=== PATIENT | female | born 1965 | race Caucasian/White ===

== ENCOUNTER → 2017-11-06 10:44 | Outpatient (CLI) | payer OTHER, SELFPAY ==
--- NOTE | 2017-11-06 | DI.MG.S_ITS ---
UNILATERAL LEFT DIGITAL SCREENING MAMMOGRAM 3D/2D WITH CAD POST MASTECTOMY: 11/06/2017 CLINICAL: Routine screening. Personal history of right breast cancer. Post right mastectomy. Comparison is made to exams dated: 11/05/2016 mammogram, 10/25/2015 mammogram - [facility], and 10/21/2014 mammogram - [facility]. The tissue of the left breast is extremely dense, which lowers the sensitivity of mammography. Current study was also evaluated with a Computer Aided Detection (CAD) system. There are biopsy clips in the left breast. No significant masses, calcifications, or other findings are seen in the breast. There has been no significant interval change. IMPRESSION: NEGATIVE There is no mammographic evidence of malignancy. A 1 year screening mammogram is recommended. This exam was interpreted at Station ID: [id number]. NOTE: For mammograms, a report in lay terms will be sent to the patient. Approximately 15% of breast malignancies will not be visualized mammographically. In the management of a palpable breast mass, a negative mammogram must not discourage biopsy of a clinically suspicious lesion. Electronically Signed By: Damaso ulloa/sonia:11/06/2017 16:08:39 letter sent: Normal Exam ACR BI-RADS Category 1: Negative 3341F
== END ==
PROVIDERS: Family Provider Family Medicine; PCP Family Medicine; Visit Provider Family Medicine
DX: Z12.31 Encounter for screening mammogram for malignant neoplasm of breast (principal); Z85.3 Personal history of malignant neoplasm of breast
CPT/HCPCS: 77063; 77065

== ENCOUNTER → 2017-12-31 15:32 | Outpatient (CLI) | payer OTHER, MEDICAID, SELFPAY ==
[2018-01-01 15:16] LABS: Add Manual Diff / Slide Review NO; Basophils Percent Auto 0.6 % (0-2); Eosinophils Percent Auto 0.7 % (2-4); Hematocrit 36.8 % (36-46); Hemoglobin 12.7 g/dL (12.0-16.0); Mean Corpuscular HGB Conc 34.4 % (30-36); Mean Corpuscular Hemoglobin 30.2 PG (26-34); Mean Corpuscular Volume 87.7 fL (80-100); Monocytes Percent Auto 6.4 % (3-14); Neutrophils Absolute Auto 3300 /uL (3000-5900); Neutrophils Percent Auto 60.3 % (50-75); Platelet Count 260 X10^3/uL (150-400); Red Cell Distribution Width 12.7 % (11.6-14.8); White Blood Cell Count 5.5 X10^3/uL (4.5-11.0)
[2018-01-01 15:31] LABS: Alanine Aminotransferase 21 IU/L (9-52); Albumin 4.5 g/dL (3.5-5.0); Albumin Globulin Ratio 1.6 (1.0-2.8); Alkaline Phosphatase 57 U/L (38-126); Aspartate Aminotransferase 25 IU/L (14-36); BUN Creatinine Ratio 17.5 (6-22); Bilirubin Total 0.3 mg/dL (0.2-1.3); Blood Urea Nitrogen 14 mg/dL (7-17); Calcium 9.4 mg/dL (8.4-10.2); Carbon Dioxide 30 mmol/L (22-32); Chloride 102 mmol/L (98-107); Estimated Glomerular Filt Rate > 60.0 mL/min (>60); Globulin 2.8 g/dL (1.7-4.1); Glucose 102 mg/dL (70-100); HEMOLYSIS < 15 (0-50); Potassium 4.2 mmol/L (3.4-5.1); Sodium 141 mmol/L (137-145); Total Protein 7.3 g/dL (6.3-8.2)
[2018-01-03 15:39] LABS: Cancer Antigen 27.29 23 U/mL (< 38)
== END ==
PROVIDERS: Family Provider Family Medicine; PCP Family Medicine; Visit Provider Nurse Practitioner Gerontology
DX: C50.911 Malignant neoplasm of unspecified site of right female breast (principal)
CPT/HCPCS: 36415; 80053; 85025; 86300

== ENCOUNTER → 2018-12-31 10:59 | Outpatient (CLI) | payer OTHER, MEDICAID, SELFPAY ==
--- NOTE | 2018-12-31 | DI.MG.S_ITS ---
UNILATERAL LEFT DIGITAL SCREENING MAMMOGRAM 3D/2D WITH CAD POST MASTECTOMY WITH RECONSTRUCTION: 12/31/2018 CLINICAL: Routine screening. Personal history of right breast cancer. Post right mastectomy. Family history of breast cancer. Comparison is made to exams dated: 11/06/2017 mammogram, 11/05/2016 mammogram, and 10/25/2015 mammogram - [facility]. The tissue of left breast is heterogeneously dense. This may lower the sensitivity of mammography. Current study was also evaluated with a Computer Aided Detection (CAD) system. There are benign biopsy clips in the left breast. No significant masses, calcifications, or other findings are seen in the breast. There has been no significant interval change. IMPRESSION: NEGATIVE There is no mammographic evidence of malignancy. A 1 year screening mammogram is recommended. This exam was interpreted at Station ID: [id number]. NOTE: For mammograms, a report in lay terms will be sent to the patient. Approximately 15% of breast malignancies will not be visualized mammographically. In the management of a palpable breast mass, a negative mammogram must not discourage biopsy of a clinically suspicious lesion. Electronically Signed By: Lidya anderson/sonia:12/31/2018 13:06:00 letter sent: Normal Exam ACR BI-RADS Category 1: Negative 3341F
== END ==
PROVIDERS: Family Provider Family Medicine; PCP Family Medicine; Visit Provider Family Medicine
DX: Z12.31 Encounter for screening mammogram for malignant neoplasm of breast (principal); Z85.3 Personal history of malignant neoplasm of breast; Z80.3 Family history of malignant neoplasm of breast; Z90.11 Acquired absence of right breast and nipple
CPT/HCPCS: 77063; 77067

== ENCOUNTER → 2019-02-20 12:34 | Outpatient (CLI) | payer OTHER, MEDICAID, SELFPAY | PROVIDERS: Family Provider Family Medicine; PCP Family Medicine; Visit Provider Internal Medicine Hematology & Oncology | DX: C50.911 Malignant neoplasm of unspecified site of right female breast (principal); Z85.3 Personal history of malignant neoplasm of breast ==

== ENCOUNTER → 2019-02-24 13:38 | Outpatient (CLI) | payer OTHER, MEDICAID, SELFPAY | PROVIDERS: Family Provider Family Medicine; PCP Family Medicine; Visit Provider Internal Medicine Hematology & Oncology | DX: M85.832 Other specified disorders of bone density and structure, left forearm (principal); M85.831 Other specified disorders of bone density and structure, right forearm; Z78.0 Asymptomatic menopausal state; Z85.3 Personal history of malignant neoplasm of breast; Z90.722 Acquired absence of ovaries, bilateral; Z82.62 Family history of osteoporosis | CPT/HCPCS: 77080; 77081 ==

== ENCOUNTER → 2020-02-04 14:28 | Outpatient (CLI) | payer OTHER, MEDICAID, SELFPAY ==
--- NOTE | 2020-02-04 14:34 | DI.MG.S_ITS ---
UNILATERAL LEFT DIGITAL SCREENING MAMMOGRAM 3D/2D WITH CAD POST MASTECTOMY: 02/04/2020 CLINICAL: Routine screening. Personal history of right breast cancer. Comparison is made to exams dated: 12/31/2018 mammogram, 11/06/2017 mammogram, 11/05/2016 mammogram, 10/25/2015 mammogram - [facility], and 10/21/2014 mammogram - [facility]. The tissue of left breast is heterogeneously dense. This may lower the sensitivity of mammography. Current study was also evaluated with a Computer Aided Detection (CAD) system. There are benign masses in the left breast. There also are biopsy clips in the left breast. No significant masses, calcifications, or other findings are seen in the breast. There has been no significant interval change. IMPRESSION: BENIGN There is no mammographic evidence of malignancy. A 1 year screening mammogram is recommended. This exam was interpreted at Station ID: [id number]. NOTE: For mammograms, a report in lay terms will be sent to the patient. Approximately 15% of breast malignancies will not be visualized mammographically. In the management of a palpable breast mass, a negative mammogram must not discourage biopsy of a clinically suspicious lesion. Electronically Signed By: Jossue coyle/sonia:02/04/2020 17:24:00 letter sent: Normal Exam ACR BI-RADS Category 2: Benign Finding(s) 3342F
== END ==
PROVIDERS: Family Provider Family Medicine; PCP Family Medicine; Referring Provider Family Medicine; Visit Provider Family Medicine
DX: Z12.31 Encounter for screening mammogram for malignant neoplasm of breast (principal); Z85.3 Personal history of malignant neoplasm of breast
CPT/HCPCS: 77063; 77067

== ENCOUNTER → 2020-02-12 14:03 | Outpatient (CLI) | payer OTHER, MEDICAID, SELFPAY ==
--- NOTE | 2020-02-12 14:04 | DI.US.S_ITS ---
LIMITED ULTRASOUND OF RIGHT BREAST: 02/12/2020 CLINICAL: Right breast pain and palpable lump. Comparison is made to exams dated: 10/21/2014 mammogram, 04/29/2014 ultrasound biopsy, 10/21/2014 ultrasound, and 04/28/2014 ultrasound - [facility]. Real-time ultrasound of the right breast 3-10 o'clock region was performed. Peterson scale images of the real-time examination were reviewed. Right breast implant has muiltiple lobulations and a smooth contour. No finding to correspond to the patient's 4:00 palpable abnormality. IMPRESSION: BENIGN There is no sonographic evidence of malignancy. There is no abnormality seen in the right breast to correspond with the pain. There is no abnormality seen in the right breast to correspond with the palpable abnormality at 4 o'clock. Return to annual mammogram screening schedule is recommended. Future imaging is recommended as follows: 02/04/2021 screening mammogram. Findings and recommendations were conveyed to the patient at time of exam. This exam was interpreted at Station ID: [id number]. Electronically Signed By: Alejandra garcia/:02/12/2020 15:02:35 letter sent: Normal Exam Ultrasound BI-RADS: 2 Benign
== END ==
PROVIDERS: Family Provider Family Medicine; Referring Provider Internal Medicine Hematology & Oncology; Visit Provider Internal Medicine Hematology & Oncology
DX: N63.14 Unspecified lump in the right breast, lower inner quadrant (principal); N64.4 Mastodynia; Z85.3 Personal history of malignant neoplasm of breast; Z98.82 Breast implant status
CPT/HCPCS: 76642

== ENCOUNTER → 2020-03-20 08:42 | Outpatient (CLI) | payer OTHER, MEDICAID, SELFPAY ==
[2020-03-21 09:45] LABS: COVID19 Sendout Not Detected (Not Detect)
== END ==
PROVIDERS: Family Provider Family Medicine; Visit Provider Nurse Practitioner
DX: Z11.59 Encounter for screening for other viral diseases (principal)
CPT/HCPCS: 87635

== ENCOUNTER → 2020-09-21 13:49 | Outpatient (CLI) | payer OTHER, MEDICAID, SELFPAY ==
[2020-09-21] MEDS: COVID-19 VACC #1, MRNA(MOD) 100 MCG/0.5 ML VIAL IM (13:55)
== END ==
PROVIDERS: Family Provider Family Medicine; Visit Provider Internal Medicine
DX: Z23 Encounter for immunization (principal)
CPT/HCPCS: 0011A; 91301

== ENCOUNTER → 2020-10-19 14:52 | Outpatient (CLI) | payer OTHER, MEDICAID, SELFPAY ==
[2020-10-19] MEDS: COVID-19 VACC #2, MRNA(MOD) 100 MCG/0.5 ML VIAL IM (15:00)
== END ==
PROVIDERS: Family Provider Family Medicine; Visit Provider Internal Medicine
DX: Z23 Encounter for immunization (principal)
CPT/HCPCS: 0012A; 91301

== ENCOUNTER → 2021-03-22 10:06 | Outpatient (CLI) | payer OTHER, MEDICAID, SELFPAY ==
--- NOTE | 2021-03-22 | DI.MG.S_ITS ---
UNILATERAL LEFT DIGITAL SCREENING MAMMOGRAM 3D/2D WITH CAD POST MASTECTOMY: 03/22/2021 CLINICAL: ROUTINE. BREAST CANCER. FAMILY HISTORY BREAST CANCER. Comparison is made to exams dated: 02/04/2020 mammogram, 12/31/2018 mammogram, and 11/06/2017 mammogram - [facility]. The tissue of left breast is heterogeneously dense. This may lower the sensitivity of mammography. Current study was also evaluated with a Computer Aided Detection (CAD) system. There are stable benign masses in the left breast. There also are biopsy clips in the left breast. No significant masses, calcifications, or other findings are seen in the breast. There has been no significant interval change. IMPRESSION: BENIGN There is no mammographic evidence of malignancy. A 1 year screening mammogram is recommended. This exam was interpreted at Station ID: [id number]. NOTE: For mammograms, a report in lay terms will be sent to the patient. Approximately 15% of breast malignancies will not be visualized mammographically. In the management of a palpable breast mass, a negative mammogram must not discourage biopsy of a clinically suspicious lesion. Electronically Signed By: Rigoberto Hdz acr/penrad:03/22/2021 12:17:27 letter sent: Normal Exam ACR BI-RADS Category 2: Benign Finding(s) 3342F
== END ==
PROVIDERS: Family Provider Family Medicine; Referring Provider Internal Medicine Hematology & Oncology; Visit Provider Internal Medicine Hematology & Oncology
DX: Z12.31 Encounter for screening mammogram for malignant neoplasm of breast (principal); Z85.3 Personal history of malignant neoplasm of breast; Z80.3 Family history of malignant neoplasm of breast
CPT/HCPCS: 77063; 77067

== ENCOUNTER → 2022-07-06 14:16 | Outpatient (CLI) | payer OTHER, MEDICAID, SELFPAY ==
--- NOTE | 2022-07-06 | DI.MG.S_ITS ---
UNILATERAL LEFT DIGITAL SCREENING MAMMOGRAM 3D/2D WITH CAD: 07/06/2022 CLINICAL: Routine screening. Personal history of right breast cancer. Family history of breast cancer. Comparison is made to exams dated: 03/22/2021 mammogram, 02/12/2020 ultrasound, 02/04/2020 mammogram, and 12/31/2018 mammogram - [facility]. The left breast is heterogeneously dense, which may obscure small masses (category c / 51-75% glandular tissue). Current study was also evaluated with a Computer Aided Detection (CAD) system. There are stable benign masses in the left breast. There also are biopsy clips in the left breast. No significant masses, calcifications, or other findings are seen in the breast. There has been no significant interval change. IMPRESSION: BENIGN There is no mammographic evidence of malignancy. A 1 year screening mammogram is recommended. This exam was interpreted at Station ID: [id number]. NOTE: For mammograms, a report in lay terms will be sent to the patient. Approximately 15% of breast malignancies will not be visualized mammographically. In the management of a palpable breast mass, a negative mammogram must not discourage biopsy of a clinically suspicious lesion. Electronically Signed By: Vargas Lincoln M.D., jr/sonia:07/06/2022 14:43:21 letter sent: Normal Exam ACR BI-RADS Category 2: Benign Finding(s) 3342F
== END ==
PROVIDERS: Family Provider Family Medicine; PCP Internal Medicine; Referring Provider Internal Medicine Hematology & Oncology; Visit Provider Internal Medicine Hematology & Oncology
DX: Z12.31 Encounter for screening mammogram for malignant neoplasm of breast (principal); Z80.3 Family history of malignant neoplasm of breast; C50.911 Malignant neoplasm of unspecified site of right female breast; Z13.820 Encounter for screening for osteoporosis; M85.851 Other specified disorders of bone density and structure, right thigh; Z78.0 Asymptomatic menopausal state; Z90.710 Acquired absence of both cervix and uterus
CPT/HCPCS: 77063; 77067; 77080

== ENCOUNTER → 2023-07-08 16:15 | Outpatient (CLI) | payer OTHER, MEDICAID, SELFPAY ==
--- NOTE | 2023-07-08 16:17 | DI.MG.S_ITS ---
UNILATERAL LEFT DIGITAL SCREENING MAMMOGRAM 3D/2D WITH CAD POST MASTECTOMY: 07/08/2023 CLINICAL: Routine screening. Personal history of right breast cancer. Family History of breast cancer. Comparison is made to exams dated: 07/06/2022 mammogram, 03/22/2021 mammogram, and 02/04/2020 mammogram - [facility]. The left breast is heterogeneously dense, which may obscure small masses (category c / 51-75% glandular tissue). Current study was also evaluated with a Computer Aided Detection (CAD) system. There are stable benign masses in the left breast. There also are biopsy clips in the left breast. No significant masses, calcifications, or other findings are seen in the breast. There has been no significant interval change. IMPRESSION: BENIGN There is no mammographic evidence of malignancy. A 1 year screening mammogram is recommended. This exam was interpreted at Station ID: [id number]. NOTE: For mammograms, a report in lay terms will be sent to the patient. Approximately 15% of breast malignancies will not be visualized mammographically. In the management of a palpable breast mass, a negative mammogram must not discourage biopsy of a clinically suspicious lesion. Electronically Signed By: Jossue coyle/sonia:07/09/2023 08:38:12 letter sent: Normal Exam ACR BI-RADS Category 2: Benign Finding(s) 3342F
== END ==
PROVIDERS: Family Provider Family Medicine; PCP Family Medicine; Referring Provider Family Medicine; Visit Provider Family Medicine
DX: Z12.31 Encounter for screening mammogram for malignant neoplasm of breast (principal); C50.911 Malignant neoplasm of unspecified site of right female breast; R92.333 Mammographic heterogeneous density, bilateral breasts; Z80.3 Family history of malignant neoplasm of breast
CPT/HCPCS: 77063; 77067

== ENCOUNTER → 2023-08-05 15:00 | Oncology outpatient (ONC) | payer OTHER, MEDICAID, SELFPAY ==
[2019-02-02 11:36] VITALS: BP 140/88; PULSE 63; RESP 20; TEMP 36.7; O2SAT 98
--- NOTE | 2019-02-02 11:42 | P.PNONC_ITS ---
PN -Subjective Interval history: 53 year old with right breast cancer here for scheduled follow up visit. Oncology History: 1. 10/19/2013: right breast biopsy with 2 samples taken from the right breast, both of which were positive for invasive ductal carcinoma; ER/ME positive at greater than 90%, respectively, with Ki-67 greater than 60%. HER2 was 1+. 2. 10/2013- 12/2013: neoadjuvant Docetaxel and cyclophosphamide times 6 cycles. 3. 04/29/2014: nipple-sparing mastectomy with a complete node dissection, pathology confirming 2 foci of invasive disease. Kelechi histological grade 5 out of 9, mitotic rate of 1. Positive extensive LVI was seen but no DCIS. Nineteen axillary lymph nodes were removed, 4 of which were positive for inv olvement, the largest measuring 2 mm with positive extranodal extension.\ 05/2014: chest wall radiation: . 06/2014: Tamoxifen 20 mg daily. Interim Events: No pain. No fatigue. The only thing is pain of her in-plant, which was hard. She wants to have it removed. She underwent hysterectomy and bilateral ovariectomy 2 years ago (2016), completed by post-op severe infection (MRSA) requiring hosp italization for a week. She is taking probiotics, and trying to maintain good diet. She stopped Tamoxifen. She is also complaining of a skin nodule in the upper abdomen. - Additional ROS All systems PM: reviewed and no additional remarkable complaints except as stated Home Medications and Allergies Home Medications Medication Instructions Recorded Confirmed Type calcium carbonate-vitamin D3 1 tab PO Q DAY #0 06/06/17 02/02/19 History [Oyster Shell Calcium-Vit D3] omega 0-jut-lyt-fish oil [Fish Oil] 1,000 mg PO Q DAY #0 06/06/17 02/02/19 History gabapentin 300 mg capsule 300 mg PO HS #30 tab 11/19/18 02/02/19 Rx anastrozole 1 mg PO DAILY #90 tab 02/02/19 Rx Allergies Allergy/AdvReac Type Severity Reaction Status Date / Time No Known Drug Allergies Allergy Verified 06/25/18 09:53 Exam Vital signs: Vital Signs Temp Pulse Resp BP Pulse Ox 02/02/19 11:36 98.1 F 63 20 140/88 98 Intake and Output 02/01/19 02/02/19 02/02/19 23:59 07:59 15:59 Other: Weight 60.9 kg Patient Weight 02/02/19 23:59 Weight 60.9 kg Narrative: ECOG 1. Gen: WDWN, NAD, pleasant and cooperative. HEENT: NCAT, EOMI, PERRLA, anicteric sclera. Neck: Supple, No palpable thyromegaly or lymphadenopathy. Respiratory: CTAB, no wheezes audible. No JVD Cardiovascular: RRR, S1 and S2 normal, no M/G/R. Abdomen: Soft, NTND, BS normal, no palpable organomegaly. A irregular skin nodule noted below the xyphoid, measuring about 1 cm. Hard on palpation. Extremities: No LE pitting edema. Lymphatic: no palpable lymph nodes in the neck, axillae, or groins. Neurological: AOx3, CN II-XII grossly intact. No focal motor or sensory deficit. Psychiatric: Good judgment and insight; normal affect; normal thought process; cooperative, no depression, no anxiety. Breast exam: Left breast: No nipple retraction, no skin changes, no palpable mass or nodules, no palpable lymph nodes in the left axilla; right breast: No nipple retraction, status post previous mastectomy with implant. No palpable nodules. No palpable lymph nodes in the right axilla. All physical examinations were chaperoned. Results - Labs None for the past one year - Imaging Additional studies: Procedures Excision of Duodenum, Via Natural or Artificial Opening Endoscopic, Diagnostic (01/14/17) Assessment and Plan (1) Breast cancer, right Overview: Right breast IDC, ER pos, ME pos, Her2 negative, node positive diagnosed 10/19/2013. She underwent neoadjuvant Decetaxel and cyclophosphamide x 6 cycles from 10/2013 through 12/2013. She underwent nipple-sparing mastectomy with a complete node dissection on 04/29/2014. Pathology showed 2 foci of invasive disease, positive extensive LVI, and no DCIS. Four of 19 axillary lymph nodes were positive for metastasis, the largest measuring 2 mm with positive extranodal extension. She then completed chest wall radiation in 05/2014, and then 5 years of Tamoxifen 20 mg daily from since Jun 2014. Assessment: I explained to the patient that I would recommend we switch tamoxifen to anastrozole. Patient has a right breast invasive ductal carcinoma with features including positive lymphovascular invasion and positive lymph nodes. I would recommend a 10 year endocrine therapy. Studies have shown that switching tamoxifen to aromatase inhibitor can help reduce the risk of recurrence. I talked with her that aromatase inhibitor is associated with increased risk of osteoporosis in addition to postmenopausal signs and symptoms as well as musculoskeletal discomfort and pain. Will obtain bone mineral density as a baseline. Plan: 1. Stop hernandez 2. Start anastrozole 3, DEXA 4. Calcium/D (2) Skin nodule Upper epigastric skin nodule, hard on palpation I will refer the patient to d ermatologist for consideration of surgical removal.
--- NOTE | 2019-02-02 12:57 | ONC.MSW ---
Description: Grief Support Activity: Pt arrived for her visit today presenting as very sad, tearful. Her [id number] after complications with a recent DVT. ENVIRONMENTAL PROJECT MANAGER offered emotional and coping support, as well as resources for community grief support. No further needs identified at this time.
[2019-03-02 11:59] VITALS: BP 152/89; PULSE 91; RESP 16; TEMP 36; O2SAT 100
--- NOTE | 2019-03-02 12:02 | P.PNONC_ITS ---
PN -Subjective Interval history: 53 year old with right breast cancer here for scheduled follow up visit. Oncology History: 1. 10/19/2013: right breast biopsy with 2 samples taken from the right breast, both of which were positive for invasive ductal carcinoma; ER/PA positive at greater than 90%, respectively, with Ki-67 greater than 60%. HER2 was 1+. 2. 10/2013- 12/2013: neoadjuvant Docetaxel and cyclophosphamide times 6 cycles. 3. 04/29/2014: nipple-sparing mastectomy with a complete node dissection, pathology confirming 2 foci of invasive disease. Kelechi histological grade 5 out of 9, mitotic rate of 1. Positive extensive LVI was seen but no DCIS. Nineteen axillary lymph nodes were removed, 4 of which were positive for inv olvement, the largest measuring 2 mm with positive extranodal extension.\ 05/2014: chest wall radiation: . 06/2014: Tamoxifen 20 mg daily. Interim Events: During her previous visit, we decided to put her back Arimidex inhibitor. However patient has not picked the medication yet. In addition patient was complaining a skin nodule in the left epigastric area measuring about 0.5 x 1 cm. Patient said that for the past several years, it has increased in size. She is very much worried about the nodule. I referred the patient to Dermatology for evaluation but has not set up yet. - Additional ROS All systems PM: reviewed and no additional remarkable complaints except as stated Home Medications and Allergies Home Medications Medication Instructions Recorded Confirmed Type calcium carbonate-vitamin D3 1 tab PO Q DAY #0 06/06/17 03/02/19 History [Oyster Shell Calcium-Vit D3] omega 0-yqq-yyh-fish oil [Fish Oil] 1,000 mg PO Q DAY #0 06/06/17 03/02/19 History gabapentin 300 mg capsule 300 mg PO HS #30 tab 11/19/18 03/02/19 Rx anastrozole 1 mg PO DAILY #90 tab 02/02/19 03/02/19 Rx Allergies Allergy/AdvReac Type Severity Reaction Status Date / Time No Known Drug Allergies Allergy Verified 06/25/18 09:53 Exam Vital signs: Vital Signs Temp Pulse Resp BP Pulse Ox 03/02/19 11:59 96.8 F L 91 H 16 152/89 H 100 Intake and Output 03/01/19 03/02/19 03/02/19 23:59 07:59 15:59 Other: Weight 62.1 kg Patient Weight 03/02/19 23:59 Weight 62.1 kg Narrative: Gen: WDWN, NAD, pleasant and cooperative. ECOG 1 HEENT: NCAT, EOMI, PERRLA, anicteric sclera. Neck: Supple, No palpable thyromegaly or lymphadenopathy. Respiratory: CTAB, no wheezes audible. No JVD Cardiovascular: RRR, S1 and S2 normal, no M/G/R. Abdomen: Soft, NTND, BS normal, no palpable organomegaly. A irregular skin nodule noted below the xyphoid, measuring about 1 cm. Hard on palpation. Extremities: No LE pitting edema. Lymphatic: no palpable lymph nodes in the neck, axillae Neurological: AOx3, CN II-XII grossly intact. No focal motor or sensory deficit. Psychiatric: Good judgment and insight; normal affect; normal thought process; cooperative, no depression, no anxiety. Breast exam: deferred. All physical examinations were chaperoned. Results - Imaging Additional studies: Procedures Excision of Duodenum, Via Natural or Artificial Opening Endoscopic, Diagnostic (01/14/17) Assessment and Plan (1) Breast cancer, right Overview: Right breast IDC, ER pos, PA pos, Her2 negative, node positive diagnosed 10/19/2013. She underwent neoadjuvant Decetaxel and cyclophosphamide x 6 cycles from 10/2013 through 12/2013. She underwent nipple-sparing mastectomy with a complete node dissection on 04/29/2014. Pathology showed 2 foci of invasive disease, positive extensive LVI, and no DCIS. Four of 19 axillary lymph nodes were positive for metastasis, the largest measuring 2 mm with positive extranodal extension. She then completed chest wall radiation in 05/2014, and then 5 years of Tamoxifen 20 mg daily from since Jun 2014. Assessment: I today explained to the patient gain that I would recommend switch tamoxifen to anastrozole. Her right breast invasive ductal carcinoma has features suggestive of high risk, including positive lymphovascular invasion and positive lymph nodes. I would recommend a 10 year endocrine therapy. I talked with her that aromatase inhibitor is associated with increased risk of osteoporosis in addition to postmenopausal signs and symptoms as well as musculoskeletal discomfort and pain. Plan: 1. Instructed her to start anastrozole 1 mg daily 2. RTC in one months, CBC, CMP to evaluate if she tolerates anastrozole. (2) Skin nodule Upper epigastric skin nodule, hard on palpation I will refer the patient to lina arriaza for evaluation of resection. (3) Osteopenia I also reviewed the DEXA scan results with the patient. Patient has osteopenia but not osteoporosis. I encouraged the patient taking calcium and vitamin-D. Plan: Calcium 1200 mg daily Vitamin D 2000 units daily
--- NOTE | 2019-03-03 13:39 | PC.NURSE ---
RX: Patient had requested per telephone to know which RX to tow picker at [facility] [email or web address] as she understood at appt with Dr. Keller yesterday that there would be something to tow picker. Notes reveal Anastrozole [facility] has still 4 refills. This communicated to patient per telephone answering machine as well as the fact that he had recommended Calcium and Vit D. supplements.
[2019-03-30 10:00] LABS: Add Manual Diff / Slide Review NO; Basophils Absolute Auto 0 /uL (0-100); Basophils Percent Auto 0.7 % (0-2); Eosinophils Absolute Auto 100 /uL (0-450); Eosinophils Percent Auto 1.9 % (2-4); Hematocrit 38.1 % (36-46); Hemoglobin 13.1 g/dL (12.0-16.0); Lymphocytes Absolute Auto 1500 /uL (1100-4500); Lymphocytes Percent Auto 28.5 % (25-40); Mean Corpuscular HGB Conc 34.5 % (30-36); Mean Corpuscular Hemoglobin 30.4 PG (26-34); Mean Corpuscular Volume 88.1 fL (80-100); Monocytes Absolute Auto 400 /uL (0-900); Monocytes Percent Auto 7.7 % (3-14); Neutrophils Absolute Auto 3200 /uL (1500-7000); Neutrophils Percent Auto 61.2 % (50-75); Platelet Count 286 X10^3/uL (150-400); Red Blood Cell Count 4.32 X10^6/uL (4.0-5.2); White Blood Cell Count 5.2 X10^3/uL (4.5-11.0)
[2019-03-30 10:20] LABS: Alanine Aminotransferase 24 IU/L (9-52); Albumin 4.6 g/dL (3.5-5.0); Albumin Globulin Ratio 1.7 (1.0-2.8); Alkaline Phosphatase 69 U/L (38-126); Aspartate Aminotransferase 25 IU/L (14-36); BUN Creatinine Ratio 18.6 (6-22); Bilirubin Total 0.4 mg/dL (0.2-1.3); Blood Urea Nitrogen 13 mg/dL (7-17); Calcium 9.9 mg/dL (8.4-10.2); Carbon Dioxide 28 mmol/L (22-32); Chloride 102 mmol/L (98-107); Estimated Glomerular Filt Rate > 60.0 mL/min (>60); Globulin 2.7 g/dL (1.7-4.1); Glucose 76 mg/dL (70-100); HEMOLYSIS < 15 (0-50); Potassium 4.2 mmol/L (3.4-5.1); Sodium 140 mmol/L (137-145); Total Protein 7.3 g/dL (6.3-8.2)
[2019-04-01 17:04] LABS: Cancer Antigen 27.29 28 U/mL (< 38)
--- NOTE | 2019-04-02 10:49 | P.PNONC_ITS ---
PN -Subjective Interval history: 53 year old with right breast cancer here for scheduled follow up visit. Oncology History: 1. 10/19/2013: right breast biopsy with 2 samples taken from the right breast, both of which were positive for invasive ductal carcinoma; ER/AL positive at greater than 90%, respectively, with Ki-67 greater than 60%. HER2 was 1+. 2. 10/2013- 12/2013: neoadjuvant Docetaxel and cyclophosphamide times 6 cycles. 3. 04/29/2014: nipple-sparing mastectomy with a complete node dissection, pathology confirming 2 foci of invasive disease. Kelechi histological grade 5 out of 9, mitotic rate of 1. Positive extensive LVI was seen but no DCIS. Nineteen axillary lymph nodes were removed, 4 of which were positive for inv olvement, the largest measuring 2 mm with positive extranodal extension.\ 05/2014: chest wall radiation: . 06/2014: Tamoxifen 20 mg daily. Interim Events: During her previous visit, patient was complaining a skin nodule in the left epigastric area measuring about 0.5 x 1 cm. Patient said that for the past several years, it has increased in size. She is very much worried about the nodule. Dr. Beckham did resection of the nodule. She is now using only ibuprofen for pain control. The patient started taking anastrozole since previous visit about a month ago on 03/02/2019. Patient said that she has tolerated better than tamoxifen. She denies any worsening hot flashes night sweats or musculoskeletal pain. - Additional ROS All systems PM: reviewed and no additional remarkable complaints except as stated Home Medications and Allergies Home Medications Medication Instructions Recorded Confirmed Type anastrozole 1 mg tablet 1 mg PO DAILY 03/18/19 03/26/19 History calcium carbonate 500 mg calcium 500 mg PO DAILY 03/18/19 03/26/19 History (1,250 mg) tablet gabapentin 300 mg capsule 300 mg PO BEDTIME 03/18/19 03/26/19 History omega 6-phl-ixj-fish oil 1,000 mg 1 cap PO DAILY 03/18/19 03/26/19 History (120 mg-180 mg) capsule Allergies Allergy/AdvReac Type Severity Reaction Status Date / Time No Known Drug Allergies Allergy Verified 03/26/19 15:23 Exam Vital signs: Last Vital Signs Temp 97.0 F L 04/02/19 11:08 Pulse 80 04/02/19 11:08 Resp 16 04/02/19 11:08 BP 136/85 04/02/19 11:08 Pulse Ox 100 04/02/19 11:08 Narrative: Gen: WDWN, NAD, pleasant and cooperative. ECOG 1 HEENT: NCAT, EOMI, PERRLA, anicteric sclera. Neck: Supple, No palpable thyromegaly or lymphadenopathy. Respiratory: CTAB, no wheezes audible. No JVD Cardiovascular: RRR, S1 and S2 normal, no M/G/R. Abdomen: Soft, NTND, BS normal, no palpable organomegaly. surgical tape noted at epigastric area Extremities: No LE pitting edema. Lymphatic: no palpable lymph nodes in the neck, axillae Neurological: AOx3, CN II-XII grossly intact. No focal motor or sensory deficit. Psychiatric: Good judgment and insight; normal affect; normal thought process; cooperative, no depression, no anxiety. Breast exam: Left: No nipple retraction, no skin changes, no palpable lumps or bumps, no palpable lymph nodes in the left axilla; right breast: Status post previous lumpectomy with breast implant. I did not appreciate any nodules or lumps along the surgical incision site. No lymph nodes in the right axilla palpable. All physical examinations were chaperoned. Results - Labs Laboratory Last Values WBC 5.2 X10^3/uL (4.5-11.0) 03/30/19 09:48 RBC 4.32 X10^6/uL (4.0-5.2) 03/30/19 09:48 Hgb 13.1 g/dL (12.0-16.0) 03/30/19 09:48 Hct 38.1 % (36-46) 03/30/19 09:48 MCV 88.1 fL (80-100) 03/30/19 09:48 MCH 30.4 PG (26-34) 03/30/19 09:48 MCHC 34.5 % (30-36) 03/30/19 09:48 RDW 13.0 % (11.6-14.8) 03/30/19 09:48 Plt Count 286 X10^3/uL (150-400) 03/30/19 09:48 Neut % (Auto) 61.2 % (50-75) 03/30/19 09:48 Lymph % (Auto) 28.5 % (25-40) 03/30/19 09:48 [place] % (Auto) 7.7 % (3-14) 03/30/19 09:48 Eos % (Auto) 1.9 % (2-4) L 03/30/19 09:48 Baso % (Auto) 0.7 % (0-2) 03/30/19 09:48 Neut # (Auto) 3200 /uL (7800-8053) 03/30/19 09:48 Lymph # (Auto) 1500 /uL (0853-8027) 03/30/19 09:48 [place] # (Auto) 400 /uL (0-900) 03/30/19 09:48 Eos # (Auto) 100 /uL (0-450) 03/30/19 09:48 Baso # (Auto) 0 /uL (0-100) 03/30/19 09:48 Sodium 140 mmol/L (137-145) 03/30/19 09:48 Potassium 4.2 mmol/L (3.4-5.1) 03/30/19 09:48 Chloride 102 mmol/L (98-107) 03/30/19 09:48 Carbon Dioxide 28 mmol/L (22-32) 03/30/19 09:48 BUN 13 mg/dL (7-17) 03/30/19 09:48 Creatinine 0.70 mg/dL (0.52-1.04) 03/30/19 09:48 Estimated GFR > 60.0 mL/min (>60) 03/30/19 09:48 BUN/Creatinine Ratio 18.6 (6-22) 03/30/19 09:48 Glucose 76 mg/dL (70-100) 03/30/19 09:48 Calcium 9.9 mg/dL (8.4-10.2) 03/30/19 09:48 Total Bilirubin 0.4 mg/dL (0.2-1.3) 03/30/19 09:48 AST 25 IU/L (14-36) 03/30/19 09:48 ALT 24 IU/L (9-52) 03/30/19 09:48 Alkaline Phosphatase 69 U/L (38-126) 03/30/19 09:48 Total Protein 7.3 g/dL (6.3-8.2) 03/30/19 09:48 Albumin 4.6 g/dL (3.5-5.0) 03/30/19 09:48 Globulin 2.7 g/dL (1.7-4.1) 03/30/19 09:48 Albumin/Globulin Ratio 1.7 (1.0-2.8) 03/30/19 09:48 CA 27-29 28 U/mL (< 38) 03/30/19 09:48 - Imaging Additional studies: Procedures Excision of Duodenum, Via Natural or Artificial Opening Endoscopic, Diagnostic (01/14/17) Assessment and Plan (1) Breast cancer, right Overview: Right breast IDC, ER pos, AL pos, Her2 negative, node positive diagnosed 10/19/2013. She underwent neoadjuvant Decetaxel and cyclophosphamide x 6 cycles from 10/2013 through 12/2013. She underwent nipple-sparing mastectomy with a complete node dissection on 04/29/2014. Pathology showed 2 foci of invasive disease, positive extensive LVI, and no DCIS. Four of 19 axillary lymph nodes were positive for metastasis, the largest measuring 2 mm with positive extranodal extension. She then completed chest wall radiation in 05/2014, and then 5 years of Tamoxifen 20 mg daily from since Jun 2014. Assessment: Her right breast invasive ductal carcinoma has features suggestive of high risk, including positive lymphovascular invasion and positive lymph nodes. I have recommended 10 year endocrine therapy. Patient completed 5 years of tamoxifen, and since February 2019, she was started on anastrozole. She tolerated very well. Plan: 1. Continue anastrozole 1 mg daily 2. Mammogram in October 2019 3. RTC after mammogram, CBC, CMP (2) Skin nodule Upper epigastric skin nodule, hard on palpation, status post surgical resection. She is now being followed by Dr. Beckham. (3) Osteopenia DEXA scan 02/24/2019: osteopenia but not osteoporosis. Plan: Calcium 1200 mg daily Vitamin D 2000 units daily
[2019-04-02 11:08] VITALS: BP 136/85; PULSE 80; RESP 16; TEMP 36.1; O2SAT 100
[2020-02-04 15:23] LABS: Add Manual Diff / Slide Review NO; Basophils Absolute Auto 0 /uL (0-100); Basophils Percent Auto 0.8 % (0-2); Eosinophils Absolute Auto 100 /uL (0-450); Eosinophils Percent Auto 1.2 % (2-4); Hematocrit 36.9 % (36-46); Hemoglobin 12.8 g/dL (12.0-16.0); Lymphocytes Absolute Auto 1700 /uL (1100-4500); Lymphocytes Percent Auto 27.3 % (25-40); Mean Corpuscular HGB Conc 34.8 % (30-36); Mean Corpuscular Hemoglobin 30.4 PG (26-34); Mean Corpuscular Volume 87.6 fL (80-100); Monocytes Absolute Auto 400 /uL (0-900); Monocytes Percent Auto 6.5 % (3-14); Neutrophils Absolute Auto 4000 /uL (1500-7000); Neutrophils Percent Auto 64.2 % (50-75); Platelet Count 298 X10^3/uL (150-400); Red Blood Cell Count 4.21 X10^6/uL (4.0-5.2); White Blood Cell Count 6.2 X10^3/uL (4.5-11.0)
[2020-02-04 15:33] LABS: Alanine Aminotransferase 15 IU/L (<35); Albumin 4.6 g/dL (3.5-5.0); Albumin Globulin Ratio 1.5 (1.0-2.8); Alkaline Phosphatase 82 U/L (38-126); Aspartate Aminotransferase 25 IU/L (14-36); BUN Creatinine Ratio 21.8 (6-22); Bilirubin Total 0.4 mg/dL (0.2-1.3); Blood Urea Nitrogen 17 mg/dL (7-17); Calcium 9.9 mg/dL (8.4-10.2); Carbon Dioxide 31 mmol/L (22-32); Chloride 103 mmol/L (98-107); Estimated Glomerular Filt Rate > 60.0 mL/min (>60); Globulin 3.1 g/dL (1.7-4.1); Glucose 95 mg/dL (70-100); HEMOLYSIS < 15 (0-50); Sodium 138 mmol/L (137-145); Total Protein 7.7 g/dL (6.3-8.2)
--- NOTE | 2020-02-11 11:54 | ONC.PN ---
PN -Subjective Interval history: 53 year old with right breast cancer here for scheduled follow up visit. Oncology History: 1. 10/19/2013: right breast biopsy with 2 samples taken from the right breast, both of which were positive for invasive ductal carcinoma; ER/AZ positive at greater than 90%, respectively, with Ki-67 greater than 60%. HER2 was 1+. 2. 10/2013- 12/2013: neoadjuvant Docetaxel and cyclophosphamide times 6 cycles. 3. 04/29/2014: nipple-sparing mastectomy with a complete node dissection, pathology confirming 2 foci of invasive disease. [place] histological grade 5 out of 9, mitotic rate of 1. Positive extensive LVI was seen but no DCIS. Nineteen axillary lymph nodes were removed, 4 of which were positive for involvement, the largest measuring 2 mm with positive extranodal extension.\ 05/2014: chest wall radiation: . 06/2014: Tamoxifen 20 mg daily. Interim Events: Since her previous visit, overall patient has been doing well. However she is complaining right-sided breast pain. She also has some problems of the mobility of the right shoulder. The patient is taking anastrozole now. And she has some mild hot flashes. No worsening musculoskeletal pain. - Additional ROS All systems PM: reviewed and no additional remarkable complaints except as stated Home Medications and Allergies Home Medications Medication Instructions Recorded Confirmed Type anastrozole 1 mg tablet 1 mg PO DAILY 03/18/19 02/11/20 History calcium carbonate 500 mg calcium 500 mg PO DAILY 03/18/19 02/11/20 History (1,250 mg) tablet gabapentin 300 mg capsule 300 mg PO BEDTIME 03/18/19 02/11/20 History omega 6-hsq-tcb-fish oil 1,000 mg 1 cap PO DAILY 03/18/19 02/11/20 History (120 mg-180 mg) capsule Allergies Allergy/AdvReac Type Severity Reaction Status Date / Time No Known Drug Allergies Allergy Verified 04/09/19 13:14 Exam Vital signs: 02/11/20 12:16 Last Vital Signs Temp 98.5 F 02/11/20 11:58 Pulse 88 02/11/20 11:58 Resp 18 02/11/20 11:58 BP 157/87 H 02/11/20 11:58 Pulse Ox 100 02/11/20 11:58 - Constitutional positive no acute distress, positive thin, negative cooperative - Routine HEENT Exam Head: Present: normocephalic, atraumatic Eye: Present: EOMI, PERRL, normal accommodation. Absent: conjunctival icterus - Routine Neck Exam Present: supple. Absent: lymphadenopathy, thyromegaly - Routine Chest/Breast/Axilla Exam Comments: Breast Exames: Left breast is without nipple retraction, no skin changes, no palpable lumps, no palpable lymph nodes in the left axilla; The right breast status post reconstruction. Tenderness elicited at 3-6 o'clock and lateral side of the implant. At about 0400, an irregular nodular mass measuring probably around 1 x 2 cm. No axillary lymph nodes palpable in both sides. All physical examinations were chaperoned Results - Labs Laboratory Last Values WBC 6.2 X10^3/uL (4.5-11.0) 02/04/20 15:14 RBC 4.21 X10^6/uL (4.0-5.2) 02/04/20 15:14 Hgb 12.8 g/dL (12.0-16.0) 02/04/20 15:14 Hct 36.9 % (36-46) 02/04/20 15:14 MCV 87.6 fL (80-100) 02/04/20 15:14 MCH 30.4 PG (26-34) 02/04/20 15:14 MCHC 34.8 % (30-36) 02/04/20 15:14 RDW 13.0 % (11.6-14.8) 02/04/20 15:14 Plt Count 298 X10^3/uL (150-400) 02/04/20 15:14 Neut % (Auto) 64.2 % (50-75) 02/04/20 15:14 Lymph % (Auto) 27.3 % (25-40) 02/04/20 15:14 [place] % (Auto) 6.5 % (3-14) 02/04/20 15:14 Eos % (Auto) 1.2 % (2-4) L 02/04/20 15:14 Baso % (Auto) 0.8 % (0-2) 02/04/20 15:14 Neut # (Auto) 4000 /uL (5950-0579) 02/04/20 15:14 Lymph # (Auto) 1700 /uL (1483-3426) 02/04/20 15:14 [place] # (Auto) 400 /uL (0-900) 02/04/20 15:14 Eos # (Auto) 100 /uL (0-450) 02/04/20 15:14 Baso # (Auto) 0 /uL (0-100) 02/04/20 15:14 Sodium 138 mmol/L (137-145) 02/04/20 15:14 Potassium 4.0 mmol/L (3.4-5.1) 02/04/20 15:14 Chloride 103 mmol/L (98-107) 02/04/20 15:14 Carbon Dioxide 31 mmol/L (22-32) 02/04/20 15:14 BUN 17 mg/dL (7-17) 02/04/20 15:14 Creatinine 0.78 mg/dL (0.52-1.04) 02/04/20 15:14 Estimated GFR > 60.0 mL/min (>60) 02/04/20 15:14 BUN/Creatinine Ratio 21.8 (6-22) 02/04/20 15:14 Glucose 95 mg/dL (70-100) 02/04/20 15:14 Calcium 9.9 mg/dL (8.4-10.2) 02/04/20 15:14 Total Bilirubin 0.4 mg/dL (0.2-1.3) 02/04/20 15:14 AST 25 IU/L (14-36) 02/04/20 15:14 ALT 15 IU/L (<35) 02/04/20 15:14 Alkaline Phosphatase 82 U/L (38-126) 02/04/20 15:14 Total Protein 7.7 g/dL (6.3-8.2) 02/04/20 15:14 Albumin 4.6 g/dL (3.5-5.0) 02/04/20 15:14 Globulin 3.1 g/dL (1.7-4.1) 02/04/20 15:14 Albumin/Globulin Ratio 1.5 (1.0-2.8) 02/04/20 15:14 CA 27-29 28 U/mL (< 38) 03/30/19 09:48 - Imaging Additional studies: Procedures Excision of Duodenum, Via Natural or Artificial Opening Endoscopic, Diagnostic (01/14/17) Assessment and Plan (1) Breast cancer, right Overview: Right breast IDC, ER pos, AZ pos, Her2 negative, node positive diagnosed 10/19/2013. She underwent neoadjuvant DOcetaxel and cyclophosphamide x 6 cycles from 10/2013 through 12/2013. She underwent nipple-sparing mastectomy with a complete node dissection on 04/29/2014. Pathology showed 2 foci of invasive disease, positive extensive LVI, and no DCIS. Four of 19 axillary lymph nodes were positive for metastasis, the largest measuring 2 mm with positive extranodal extension. She then completed chest wall radiation in 05/2014, and then 5 years of Tamoxifen 20 mg daily from since Jun 2014. Assessment: I reviewed the mammogram results. The mammogram of the left breast showed no evidence of malignancy. However on my physical examination, the right breast showed tenderness especially at lateral periphery at and 0400 hours. An irregular nodular measuring 1x2 cm was palpable. I will proceed with ultrasound study to further evaluate. Plan: 1. Continue anastrozole 1 mg daily 2. Right breast US 3. RTC after ultrasound study (2) Osteopenia DEXA scan 02/24/2019: osteopenia but not osteoporosis. Plan: Calcium 1200 mg daily Vitamin D 2000 units daily
[2020-02-11 11:58] VITALS: BP 157/87; PULSE 88; RESP 18; TEMP 36.9; O2SAT 100
[2020-02-16 08:23] VITALS: BP 131/80; PULSE 78; RESP 18; TEMP 36.7; O2SAT 100
--- NOTE | 2020-02-16 08:37 | ONC.PN ---
PN -Subjective Interval history: 54 year old with right breast cancer here for scheduled follow up visit. Oncology History: 1. 10/19/2013: right breast biopsy with 2 samples taken from the right breast, both of which were positive for invasive ductal carcinoma; ER/SD positive at greater than 90%, respectively, with Ki-67 greater than 60%. HER2 was 1+. 2. 10/2013- 12/2013: neoadjuvant Docetaxel and cyclophosphamide times 6 cycles. 3. 04/29/2014: nipple-sparing mastectomy with a complete node dissection, pathology confirming 2 foci of invasive disease. [place] histological grade 5 out of 9, mitotic rate of 1. Positive extensive LVI was seen but no DCIS. Nineteen axillary lymph nodes were removed, 4 of which were positive for involvement, the largest measuring 2 mm with positive extranodal extension. 4. 05/2014: chest wall radiation: 5. 06/2014: Tamoxifen 20 mg daily. Interim Events: During her previous visit on my physical examination, there is a questionable nodular mass at the 0400 hours right breast. Therefore patient underwent ultrasound study of the right breast on 02/12/2020. It showed no sonographic evidence of malignancy. Return to annual mammogram screening was recommended. Clinically, patient continues to complain annoying right-sided breast pain. Patient said that the pain seems to be worse when the weather is cold. - Patient Self-Reported Symptoms SR Neuro issues: Numbness or tingling - Additional ROS All systems PM: reviewed and no additional remarkable complaints except as stated Home Medications and Allergies Home Medications Medication Instructions Recorded Confirmed Type calcium carbonate 500 mg calcium 500 mg PO DAILY 03/18/19 02/11/20 History (1,250 mg) tablet omega 9-qmm-zfo-fish oil 1,000 mg 1 cap PO DAILY 03/18/19 02/16/20 History (120 mg-180 mg) capsule anastrozole 1 mg PO DAILY #30 tab 02/15/20 02/16/20 Rx cholecalciferol (vitamin D3) 1,000 unit 02/16/20 History [Vitamin D3] Allergies Allergy/AdvReac Type Severity Reaction Status Date / Time No Known Drug Allergies Allergy Verified 04/09/19 13:14 Exam Vital signs: Vital Signs Temp Pulse Resp BP Pulse Ox 02/16/20 08:23 98.1 F 78 18 131/80 100 Intake and Output 08/02/16/20 02/16/20 23:59 07:59 15:59 Other: Weight 62 kg Patient Weight 02/16/20 23:59 Weight 62 kg - Constitutional positive no acute distress, positive average body habitus, positive cooperative - Routine HEENT Exam Head: Present: normocephalic, atraumatic Eye: Present: EOMI, PERRL, normal accommodation. Absent: conjunctival icterus - Routine Neck Exam Present: supple. Absent: lymphadenopathy, thyromegaly - Routine Chest/Breast/Axilla Exam Axillae: Absent: lymphadenopathy - Routine Respiratory Exam Present: Clear to auscultation bilaterally. Absent: wheezes - Routine Cardiovascular Exam Present: RRR, S1, S2. Absent: murmur, gallop, rubs - Routine Abdominal Exam Present: soft. Absent: tenderness, distended, organomegaly - Routine Extremities Exam Absent: edema - Routine Neurological Exam Present: alert, oriented X3, CN II-XII intact. Absent: sensory deficit, motor deficit - Routine Psychiatric Exam Present: normal affect Results - Labs Laboratory Last Values WBC 6.2 X10^3/uL (4.5-11.0) 02/04/20 15:14 RBC 4.21 X10^6/uL (4.0-5.2) 02/04/20 15:14 Hgb 12.8 g/dL (12.0-16.0) 02/04/20 15:14 Hct 36.9 % (36-46) 02/04/20 15:14 MCV 87.6 fL (80-100) 02/04/20 15:14 MCH 30.4 PG (26-34) 02/04/20 15:14 MCHC 34.8 % (30-36) 02/04/20 15:14 RDW 13.0 % (11.6-14.8) 02/04/20 15:14 Plt Count 298 X10^3/uL (150-400) 02/04/20 15:14 Neut % (Auto) 64.2 % (50-75) 02/04/20 15:14 Lymph % (Auto) 27.3 % (25-40) 02/04/20 15:14 [place] % (Auto) 6.5 % (3-14) 02/04/20 15:14 Eos % (Auto) 1.2 % (2-4) L 02/04/20 15:14 Baso % (Auto) 0.8 % (0-2) 02/04/20 15:14 Neut # (Auto) 4000 /uL (7253-9710) 02/04/20 15:14 Lymph # (Auto) 1700 /uL (9223-0102) 02/04/20 15:14 [place] # (Auto) 400 /uL (0-900) 02/04/20 15:14 Eos # (Auto) 100 /uL (0-450) 02/04/20 15:14 Baso # (Auto) 0 /uL (0-100) 02/04/20 15:14 Sodium 138 mmol/L (137-145) 02/04/20 15:14 Potassium 4.0 mmol/L (3.4-5.1) 02/04/20 15:14 Chloride 103 mmol/L (98-107) 02/04/20 15:14 Carbon Dioxide 31 mmol/L (22-32) 02/04/20 15:14 BUN 17 mg/dL (7-17) 02/04/20 15:14 Creatinine 0.78 mg/dL (0.52-1.04) 02/04/20 15:14 Estimated GFR > 60.0 mL/min (>60) 02/04/20 15:14 BUN/Creatinine Ratio 21.8 (6-22) 02/04/20 15:14 Glucose 95 mg/dL (70-100) 02/04/20 15:14 Calcium 9.9 mg/dL (8.4-10.2) 02/04/20 15:14 Total Bilirubin 0.4 mg/dL (0.2-1.3) 02/04/20 15:14 AST 25 IU/L (14-36) 02/04/20 15:14 ALT 15 IU/L (<35) 02/04/20 15:14 Alkaline Phosphatase 82 U/L (38-126) 02/04/20 15:14 Total Protein 7.7 g/dL (6.3-8.2) 02/04/20 15:14 Albumin 4.6 g/dL (3.5-5.0) 02/04/20 15:14 Globulin 3.1 g/dL (1.7-4.1) 02/04/20 15:14 Albumin/Globulin Ratio 1.5 (1.0-2.8) 02/04/20 15:14 CA 27-29 28 U/mL (< 38) 03/30/19 09:48 - Imaging Additional studies: Procedures Excision of Duodenum, Via Natural or Artificial Opening Endoscopic, Diagnostic (01/14/17) Assessment and Plan (1) Breast cancer, right Overview: Right breast IDC, ER pos, SD pos, Her2 negative, node positive diagnosed 10/19/2013. She underwent neoadjuvant DOcetaxel and cyclophosphamide x 6 cycles from 10/2013 through 12/2013. She underwent nipple-sparing mastectomy with a complete node dissection on 04/29/2014. Pathology showed 2 foci of invasive disease, positive extensive LVI, and no DCIS. Four of 19 axillary lymph nodes were positive for metastasis, the largest measuring 2 mm with positive extranodal extension. She then completed chest wall radiation in 05/2014, and then 5 years of Tamoxifen 20 mg daily from since Jun 2014. Since 03/02/2019, she was switched to Anastrozole Assessment: Due to right breast tenderness and questionable 0400 hours nodular mass on physical examination, patient underwent ultrasound study on 02/12/2020. No sonographic abnormality was identified. Our radiologist Dr. Mendoza recommended screening mammogram in 1 year. Clinically patient does not have any new signs or symptoms. Plan: 1. Continue anastrozole 1 mg daily 2. Screening mammogram in one year 3. RTC after mammogram, CBC, CMP (2) Osteopenia DEXA scan 02/24/2019: osteopenia but not osteoporosis. Plan: Calcium 1200 mg daily Vitamin D 2000 units daily
[2021-04-13 10:42] LABS: Add Manual Diff / Slide Review NO; Basophils Absolute Auto 0 /uL (0-100); Basophils Percent Auto 0.9 % (0-2); Eosinophils Absolute Auto 100 /uL (0-450); Eosinophils Percent Auto 1.7 % (2-4); Hematocrit 37.3 % (36-46); Hemoglobin 12.6 g/dL (12.0-16.0); Lymphocytes Absolute Auto 1600 /uL (1100-4500); Lymphocytes Percent Auto 32.1 % (25-40); Mean Corpuscular HGB Conc 33.9 % (30-36); Mean Corpuscular Hemoglobin 29.3 PG (26-34); Mean Corpuscular Volume 86.6 fL (80-100); Monocytes Absolute Auto 400 /uL (0-900); Monocytes Percent Auto 7.6 % (3-14); Neutrophils Absolute Auto 2900 /uL (1500-7000); Neutrophils Percent Auto 57.7 % (50-75); Platelet Count 279 X10^3/uL (150-400); Red Blood Cell Count 4.31 X10^6/uL (4.0-5.2); Red Cell Distribution Width 13.9 % (11.6-14.8); White Blood Cell Count 5.1 X10^3/uL (4.5-11.0)
[2021-04-13 10:59] LABS: Alanine Aminotransferase 17 IU/L (<35); Albumin 4.5 g/dL (3.5-5.0); Albumin Globulin Ratio 1.6 (1.0-2.8); Alkaline Phosphatase 74 U/L (38-126); Aspartate Aminotransferase 24 IU/L (14-36); BUN Creatinine Ratio 20.5 (6-22); Bilirubin Total 0.3 mg/dL (0.2-1.3); Blood Urea Nitrogen 16 mg/dL (7-17); Calcium 9.8 mg/dL (8.4-10.2); Carbon Dioxide 29 mmol/L (22-32); Chloride 104 mmol/L (98-107); Estimated Glomerular Filt Rate > 60.0 mL/min (>60); Globulin 2.9 g/dL (1.7-4.1); Glucose 100 mg/dL (70-100); HEMOLYSIS < 15 (0-50); Potassium 4.7 mmol/L (3.4-5.1); Sodium 140 mmol/L (137-145); Total Protein 7.4 g/dL (6.3-8.2)
[2021-04-18 11:14] VITALS: BP 133/80; PULSE 77; RESP 18; TEMP 36.6; O2SAT 100
--- NOTE | 2021-04-18 11:15 | ONC.PN ---
PN -Subjective Interval history: Identification and chief complaint 55 year old with right breast cancer here for scheduled follow up visit. Oncology History: 1. 10/19/2013: right breast biopsy with 2 samples taken from the right breast, both of which were positive for invasive ductal carcinoma; ER/MT positive at greater than 90%, respectively, with Ki-67 greater than 60%. HER2 was 1+. 2. 10/2013- 12/2013: neoadjuvant Docetaxel and cyclophosphamide times 6 cycles. 3. 04/29/2014: nipple-sparing mastectomy with a complete node dissection, pathology confirming 2 foci of invasive disease. [place] histological grade 5 out of 9, mitotic rate of 1. Positive extensive LVI was seen but no DCIS. Nineteen axillary lymph nodes were removed, 4 of which were positive for involvement, the largest measuring 2 mm with positive extranodal extension. 4. 05/2014: chest wall radiation: . 06/2014: Tamoxifen 20 mg daily. 02/2019: Anastrozole 1 mg daily Interim Events: Patient has run out of anastrozole for the last 3 weeks. Clinically, patient reports no new signs or symptoms. On 03/22/2021, patient underwent screening mammogram that showed no evidence of malignancy. - Patient Self-Reported Symptoms SR Neuro issues: Numbness or tingling - ROS All systems PM: reviewed and no additional remarkable complaints except as stated Home Medications and Allergies Home Medications Medication Instructions Recorded Confirmed Type calcium carbonate 500 mg calcium 500 mg PO DAILY 03/18/19 04/18/21 History (1,250 mg) tablet omega 1-bht-inp-fish oil 1,000 mg 1 cap PO DAILY 03/18/19 04/18/21 History (120 mg-180 mg) capsule cholecalciferol (vitamin D3) 25 1,000 unit DAILY 02/16/20 04/18/21 History mcg (1,000 unit) capsule (Vitamin D3) anastrozole 1 mg tablet 1 mg PO DAILY #30 tab 04/18/21 Rx Allergies Allergy/AdvReac Type Severity Reaction Status Date / Time No Known Drug Allergies Allergy Verified 03/20/20 08:40 Exam Vital signs: Vital Signs Temp Pulse Resp BP Pulse Ox 04/18/21 11:14 98 F 77 18 133/80 100 Intake and Output 04/17/21 04/18/21 04/18/21 23:59 07:59 15:59 Other: Weight 62.3 kg Patient Weight 04/18/21 23:59 Weight 62.3 kg - Constitutional positive no acute distress, positive thin, positive cooperative - Routine HEENT Exam Head: Present: normocephalic, atraumatic Eye: Present: EOMI, PERRL, normal accommodation. Absent: conjunctival icterus ENT: Present: mucous membranes moist - Routine Neck Exam Present: supple. Absent: lymphadenopathy, thyromegaly - Routine Chest/Breast/Axilla Exam Axillae: Absent: lymphadenopathy Comments: Breast exam: Left breast: No nipple retraction, no skin changes, no palpable mass or nodules, no palpable lymph nodes in the left axilla; Right breast: status post previous mastectomy with implant. No palpable nodules. No palpable lymph nodes in the right axilla. All physical examinations were chaperoned. - Routine Respiratory Exam Present: Clear to auscultation bilaterally. Absent: wheezes - Routine Cardiovascular Exam Present: RRR, S1, S2. Absent: murmur, gallop, rubs - Routine Abdominal Exam Present: soft. Absent: tenderness, distended, organomegaly - Routine Extremities Exam Absent: edema - Routine Neurological Exam Present: alert, oriented X3, CN II-XII intact. Absent: sensory deficit, motor deficit - Routine Psychiatric Exam Present: normal affect Results - Labs Laboratory Last Values WBC 5.1 X10^3/uL (4.5-11.0) 04/13/21 10:32 RBC 4.31 X10^6/uL (4.0-5.2) 04/13/21 10:32 Hgb 12.6 g/dL (12.0-16.0) 04/13/21 10:32 Hct 37.3 % (36-46) 04/13/21 10:32 MCV 86.6 fL (80-100) 04/13/21 10:32 MCH 29.3 PG (26-34) 04/13/21 10:32 MCHC 33.9 % (30-36) 04/13/21 10:32 RDW 13.9 % (11.6-14.8) 04/13/21 10:32 Plt Count 279 X10^3/uL (150-400) 04/13/21 10:32 Neut % (Auto) 57.7 % (50-75) 04/13/21 10:32 Lymph % (Auto) 32.1 % (25-40) 04/13/21 10:32 [place] % (Auto) 7.6 % (3-14) 04/13/21 10:32 Eos % (Auto) 1.7 % (2-4) L 04/13/21 10:32 Baso % (Auto) 0.9 % (0-2) 04/13/21 10:32 Neut # (Auto) 2900 /uL (2936-4732) 04/13/21 10:32 Lymph # (Auto) 1600 /uL (7043-3964) 04/13/21 10:32 [place] # (Auto) 400 /uL (0-900) 04/13/21 10:32 Eos # (Auto) 100 /uL (0-450) 04/13/21 10:32 Baso # (Auto) 0 /uL (0-100) 04/13/21 10:32 Sodium 140 mmol/L (137-145) 04/13/21 10:32 Potassium 4.7 mmol/L (3.4-5.1) 04/13/21 10:32 Chloride 104 mmol/L (98-107) 04/13/21 10:32 Carbon Dioxide 29 mmol/L (22-32) 04/13/21 10:32 BUN 16 mg/dL (7-17) 04/13/21 10:32 Creatinine 0.78 mg/dL (0.52-1.04) 04/13/21 10:32 Estimated GFR > 60.0 mL/min (>60) 04/13/21 10:32 BUN/Creatinine Ratio 20.5 (6-22) 04/13/21 10:32 Glucose 100 mg/dL (70-100) 04/13/21 10:32 Calcium 9.8 mg/dL (8.4-10.2) 04/13/21 10:32 Total Bilirubin 0.3 mg/dL (0.2-1.3) 04/13/21 10:32 AST 24 IU/L (14-36) 04/13/21 10:32 ALT 17 IU/L (<35) 04/13/21 10:32 Alkaline Phosphatase 74 U/L (38-126) 04/13/21 10:32 Total Protein 7.4 g/dL (6.3-8.2) 04/13/21 10:32 Albumin 4.5 g/dL (3.5-5.0) 04/13/21 10:32 Globulin 2.9 g/dL (1.7-4.1) 04/13/21 10:32 Albumin/Globulin Ratio 1.6 (1.0-2.8) 04/13/21 10:32 CA 27-29 28 U/mL (< 38) 03/30/19 09:48 - Imaging Additional studies: Procedures Excision of Duodenum, Via Natural or Artificial Opening Endoscopic, Diagnostic (01/14/17) Assessment and Plan (1) Breast cancer, right Overview: Right breast IDC, ER pos, [place] pos, Her2 negative, node positive diagnosed 10/19/2013. She underwent neoadjuvant Docetaxel and cyclophosphamide x 6 cycles from 10/2013 through 12/2013. She underwent nipple-sparing mastectomy with a complete node dissection on 04/29/2014. Pathology showed 2 foci of invasive disease, positive extensive LVI, and no DCIS. Four of 19 axillary lymph nodes were positive for metastasis, the largest measuring 2 mm with positive extranodal extension. She then completed chest wall radiation in 05/2014, and then 5 years of Tamoxifen 20 mg daily from since Jun 2014. Since 03/02/2019, she was switched to Anastrozole Assessment: Today, I talked with the patient about the new study regarding the length of the endocrine therapy. In postmenopausal women with hormone-receptor?positive breast cancer who had received 5 years of adjuvant endocrine therapy, extending hormone therapy by 5 years provided no benefit over a 2-year extension but was associated with a greater risk of bone fracture (NEJ 2020; 385:395-405). Therefore, I recommended and we adjust our length of treatment to 7 years instead of previously decided 10 years. Patient voiced understanding. Plan: 1. Continue anastrozole 1 mg daily 2. Screening mammogram in one year 3. RTC after mammogram, CBC, CMP (2) Osteopenia DEXA scan 02/24/2019: osteopenia but not osteoporosis. Plan: Calcium 1200 mg daily Vitamin D 2000 units daily DEXA in one year
--- NOTE | 2021-04-18 14:22 | ONC.SCHED ---
Left message for patient with follow-up for 04/19/22. Provided number for DI and encouraged patient to call mid-January to get Dexa Scans and Mammogram scheduled by 04/16/22 to ensure results are available for fup.
--- NOTE | 2022-05-23 13:09 | ONC.SCHED ---
LM for pt re: mammo & dexa Will need to reschedule 1 yr follow up if mammo & dexa have not been done. Asked for pt to call back
[2022-07-06 13:21] LABS: Add Manual Diff / Slide Review NO; Basophils Absolute Auto 0 /uL (0-100); Basophils Percent Auto 0.3 % (0-2); Eosinophils Absolute Auto 100 /uL (0-450); Eosinophils Percent Auto 1.2 % (2-4); Hematocrit 37.1 % (36-46); Hemoglobin 12.6 g/dL (12.0-16.0); Lymphocytes Absolute Auto 1500 /uL (1100-4500); Lymphocytes Percent Auto 26.6 % (25-40); Mean Corpuscular HGB Conc 34.1 % (30-36); Mean Corpuscular Hemoglobin 29.5 PG (26-34); Mean Corpuscular Volume 86.4 fL (80-100); Monocytes Absolute Auto 400 /uL (0-900); Monocytes Percent Auto 7.7 % (3-14); Neutrophils Absolute Auto 3600 /uL (1500-7000); Neutrophils Percent Auto 64.2 % (50-75); Platelet Count 269 X10^3/uL (150-400); Red Blood Cell Count 4.29 X10^6/uL (4.0-5.2); Red Cell Distribution Width 13.5 % (11.6-14.8); White Blood Cell Count 5.5 X10^3/uL (4.5-11.0)
[2022-07-06 13:39] LABS: Alanine Aminotransferase 20 IU/L (<35); Albumin 4.6 g/dL (3.5-5.0); Albumin Globulin Ratio 1.4 (1.0-2.8); Alkaline Phosphatase 113 U/L (38-126); Aspartate Aminotransferase 26 IU/L (14-36); BUN Creatinine Ratio 18.4 (6-22); Bilirubin Total 0.3 mg/dL (0.2-1.3); Blood Urea Nitrogen 14 mg/dL (7-17); Calcium 9.6 mg/dL (8.4-10.2); Carbon Dioxide 30 mmol/L (22-32); Chloride 101 mmol/L (98-107); Estimated Glomerular Filt Rate > 60 mL/min (>60); Globulin 3.2 g/dL (1.7-4.1); Glucose 93 mg/dL (70-100); HEMOLYSIS < 15 (0-50); Potassium 4.2 mmol/L (3.4-5.1); Sodium 139 mmol/L (137-145); Total Protein 7.8 g/dL (6.3-8.2)
--- NOTE | 2022-08-06 14:26 | P.PNONC_ITS ---
PN -Subjective - Date of Visit Date of visit: 08/06/22 Chief Complaint: 57 year old with right breast cancer here for scheduled follow up visit. Interval history: Patient has run out of anastrozole for the last 3 weeks. Clinically, patient reports no new signs or symptoms. On 07/06/2022, patient underwent screening mammogram that showed no evidence of malignancy. Oncology History: 1. 10/19/2013: right breast biopsy with 2 samples taken from the right breast, both of which were positive for invasive ductal carcinoma; ER/[place] positive at greater than 90%, respectively, with Ki-67 greater than 60%. HER2 was 1+. 2. 10/2013- 12/2013: neoadjuvant Docetaxel and cyclophosphamide times 6 cycles. 3. 04/29/2014: nipple-sparing mastectomy with a complete node dissection, pathology confirming 2 foci of invasive disease. [place] histological grade 5 out of 9, mitotic rate of 1. Positive extensive LVI was seen but no DCIS. Nineteen axillary lymph nodes were removed, 4 of which were positive for involvement, the largest measuring 2 mm with positive extranodal extension. 4. 05/2014: chest wall radiation: 5. 06/2014: Tamoxifen 20 mg daily. 6. 02/2019: Anastrozole 1 mg daily - Patient Self-Reported Symptoms SR Neuro issues: Numbness or tingling - ROS All Systems: reviewed and no additional remarkable complaints except as stated Home Medications and Allergies Home Medications Medication Instructions Recorded Confirmed Type calcium carbonate 500 mg calcium 500 mg PO DAILY 03/18/19 04/18/21 History (1,250 mg) tablet omega 6-cof-bdd-fish oil 1,000 mg 1 cap PO DAILY 03/18/19 04/18/21 History (120 mg-180 mg) capsule cholecalciferol (vitamin D3) 25 1,000 unit DAILY 02/16/20 04/18/21 History mcg (1,000 unit) capsule (Vitamin D3) anastrozole 1 mg tablet 1 mg PO DAILY #30 tabs 05/21/22 Rx Allergies Allergy/AdvReac Type Severity Reaction Status Date / Time No Known Drug Allergies Allergy Verified 03/20/20 08:40 Exam Vital signs: 08/06/22 14:43 Last Vital Signs Temp 97.1 F L 08/06/22 14:28 Pulse 75 08/06/22 14:28 Resp 16 08/06/22 14:28 BP 151/89 H 08/06/22 14:28 Pulse Ox 100 08/06/22 14:28 - Constitutional positive no acute distress, positive cooperative - Routine HEENT Exam Head: Present: normocephalic, atraumatic Eye: Present: EOMI, PERRL, normal accommodation. Absent: conjunctival icterus - Routine Neck Exam Absent: lymphadenopathy, thyromegaly - Routine Chest/Breast/Axilla Exam Axillae: Absent: lymphadenopathy Comments: Breast Exams: Left breast is without nipple retraction, no skin changes, no palpable lumps, no palpable lymph nodes in the left axilla; The right breast is status post mastectomy with reconstruction and implant. No palpable nodules or masses. No palpable lymph nodes in the right axilla. All physical examinations were chaperoned - Routine Respiratory Exam Present: Clear to auscultation bilaterally. Absent: wheezes, crackles - Routine Cardiovascular Exam Present: RRR, S1, S2. Absent: murmur, gallop, rubs - Routine Abdominal Exam Present: soft. Absent: tenderness, distended, organomegaly - Routine Extremities Exam Absent: edema - Routine Neurological Exam Present: alert, oriented X3, CN II-XII intact. Absent: sensory deficit, motor deficit - Routine Psychiatric Exam Present: normal affect Results - Labs Laboratory Last Values WBC 5.5 X10^3/uL (4.5-11.0) 07/06/22 12: RBC 4.29 X10^6/uL (4.0-5.2) 07/06/22 12:26 Hgb 12.6 g/dL (12.0-16.0) 07/06/22 12:26 Hct 37.1 % (36-46) 07/06/22 12:26 MCV 86.4 fL (80-100) 07/06/22 12:26 MCH 29.5 PG (26-34) 07/06/22 12: MCHC 34.1 % (30-36) 07/06/22 12: RDW 13.5 % (11.6-14.8) 07/06/22 12:26 Plt Count 269 X10^3/uL (150-400) 07/06/22 12: Neut % (Auto) 64.2 % (50-75) 07/06/22 12:26 Lymph % (Auto) 26.6 % (25-40) 07/06/22 12:26 [place] % (Auto) 7.7 % (3-14) 07/06/22 12:26 Eos % (Auto) 1.2 % (2-4) L 07/06/22 12:26 Baso % (Auto) 0.3 % (0-2) 07/06/22 12:26 Neut # (Auto) 3600 /uL (9120-1226) 07/06/22 12:26 Lymph # (Auto) 1500 /uL (3187-3879) 07/06/22 12:26 [place] # (Auto) 400 /uL (0-900) 07/06/22 12:26 Eos # (Auto) 100 /uL (0-450) 07/06/22 12:26 Baso # (Auto) 0 /uL (0-100) 07/06/22 12:26 Sodium 139 mmol/L (137-145) 07/06/22 12:26 Potassium 4.2 mmol/L (3.4-5.1) 07/06/22 12:26 Chloride 101 mmol/L (98-107) 07/06/22 12:26 Carbon Dioxide 30 mmol/L (22-32) 07/06/22 12:26 BUN 14 mg/dL (7-17) 07/06/22 12:26 Creatinine 0.76 mg/dL (0.52-1.04) 07/06/22 12:26 Estimated GFR > 60 mL/min (>60) 07/06/22 12:26 BUN/Creatinine Ratio 18.4 (6-22) 07/06/22 12:26 Glucose 93 mg/dL (70-100) 07/06/22 12:26 Calcium 9.6 mg/dL (8.4-10.2) 07/06/22 12:26 Total Bilirubin 0.3 mg/dL (0.2-1.3) 07/06/22 12:26 AST 26 IU/L (14-36) 07/06/22 12:26 ALT 20 IU/L (<35) 07/06/22 12:26 Alkaline Phosphatase 113 U/L (38-126) 07/06/22 12:26 Total Protein 7.8 g/dL (6.3-8.2) 07/06/22 12:26 Albumin 4.6 g/dL (3.5-5.0) 07/06/22 12:26 Globulin 3.2 g/dL (1.7-4.1) 07/06/22 12:26 Albumin/Globulin Ratio 1.4 (1.0-2.8) 07/06/22 12:26 CA 27-29 28 U/mL (< 38) 03/30/19 09:48 - Imaging Additional studies: Procedures Excision of Duodenum, Via Natural or Artificial Opening Endoscopic, Diagnostic (01/14/17) Assessment and Plan (1) Breast cancer, right Overview: Right breast IDC, ER pos, [place] pos, Her2 negative, node positive diagnosed 10/19/2013. She underwent neoadjuvant Docetaxel and cyclophosphamide x 6 cycles from 10/2013 through 12/2013. She underwent nipple-sparing mastectomy with a complete node dissection on 04/29/2014. Pathology showed 2 foci of invasive disease, positive extensive LVI, and no DCIS. Four of 19 axillary lymph nodes were positive for metastasis, the largest measuring 2 mm with positive extranodal extension. She then completed chest wall radiation in 05/2014, and then 5 years of Tamoxifen 20 mg daily from since Jun 2014. Since 03/02/2019, she was switched to Anastrozole Assessment: Clinically, patient has tolerated the anastrozole quite well. I reviewed the labs including CBC and CMP the are normal. I also reviewed the unilateral left breast mammogram that showed no abnormal findings. On my physical examination, I did not appreciate any abnormal lumps or masses in the right breast and no right axillary lymph node enlargement. I talked with patient that I am recommending 1 more year of endocrine therapy then consider stop. Patient voiced understanding and agreed. Plan: 1. Continue anastrozole 1 mg daily 2. Screening mammogram in one year 3. RTC after mammogram, CBC, CMP (2) Osteopenia DEXA scan 02/24/2019: osteopenia but not osteoporosis. Plan: Calcium 1200 mg daily Vitamin D 2000 units daily DEXA in one year
[2022-08-06 14:28] VITALS: BP 151/89; PULSE 75; RESP 16; TEMP 36.2; O2SAT 100
--- NOTE | 2023-07-16 11:38 | ONC.SCHED ---
Addendum entered by Rosana Minaya 07/18/23 12:24: Left 2nd for pt to call back. Advised appt for 08/05/23 is canceled however we would like her to call to re: BRIAN Original Note: lvm for patient to call back re: BRIAN
--- NOTE | 2023-08-05 09:32 | PC.NURSE ---
pt scheduled for lab result review. No current lab results found.
--- NOTE | 2023-08-05 16:17 | PC.NURSE ---
BRIAN: [facility] request [facility] Intervention Manager informed.
== END ==
PROVIDERS: Family Provider Family Medicine; PCP Internal Medicine; Visit Provider Internal Medicine Hematology & Oncology
DX: C50.911 Malignant neoplasm of unspecified site of right female breast (principal); Z17.0 Estrogen receptor positive status [ER+]
CPT/HCPCS: 36415; 77063; 77067; 80053; 85025; 86300; 99214

== ENCOUNTER → 2023-08-06 11:28 | Outpatient (CLI) | payer OTHER, MEDICAID, SELFPAY ==
[2023-08-06 12:47] LABS: Add Manual Diff / Slide Review NO; Basophils Absolute Auto 0 /uL (0-100); Basophils Percent Auto 0.6 % (0-2); Eosinophils Absolute Auto 0 /uL (0-450); Eosinophils Percent Auto 0.4 % (2-4); Hematocrit 37.8 % (36-46); Hemoglobin 12.8 g/dL (12.0-16.0); Lymphocytes Absolute Auto 1400 /uL (1100-4500); Lymphocytes Percent Auto 18.3 % (25-40); Mean Corpuscular HGB Conc 33.8 % (30-36); Mean Corpuscular Volume 85.9 fL (80-100); Monocytes Absolute Auto 400 /uL (0-900); Monocytes Percent Auto 5.7 % (3-14); Neutrophils Absolute Auto 5600 /uL (1500-7000); Platelet Count 319 X10^3/uL (150-400); Red Cell Distribution Width 13.7 % (11.6-14.8); White Blood Cell Count 7.4 X10^3/uL (4.5-11.0)
[2023-08-06 13:16] LABS: Carbon Dioxide 27 mmol/L (22-32); Chloride 101 mmol/L (98-107); HEMOLYSIS < 15 (0-50); Sodium 140 mmol/L (137-145)
[2023-08-06 13:17] LABS: Alanine Aminotransferase 16 IU/L (<35); Albumin 4.5 g/dL (3.5-5.0); Albumin Globulin Ratio 1.6 (1.0-2.8); Alkaline Phosphatase 69 U/L (38-126); Aspartate Aminotransferase 22 IU/L (14-36); BUN Creatinine Ratio 12.8 (6-22); Bilirubin Total 0.5 mg/dL (0.2-1.3); Blood Urea Nitrogen 11 mg/dL (7-17); Calcium 9.9 mg/dL (8.4-10.2); Estimated Glomerular Filt Rate > 60 mL/min (>60); Globulin 2.9 g/dL (1.7-4.1); Glucose 101 mg/dL (70-100); Total Protein 7.4 g/dL (6.3-8.2)
== END ==
LOC: LAB 11:29
PROVIDERS: Family Provider Family Medicine; PCP Family Medicine; Referring Provider Internal Medicine Hematology & Oncology; Visit Provider Internal Medicine Hematology & Oncology
DX: C50.911 Malignant neoplasm of unspecified site of right female breast (principal)
CPT/HCPCS: 36415; 80053; 85025

== ENCOUNTER 2023-10-29 10:32 | Emergency (ER) | payer OTHER, MEDICAID, SELFPAY ==
[2023-10-29] VITALS (14 sets, daily range): BP systolic 124–175; BP diastolic 65–95; PULSE 75–91; RESP 15–24; TEMP 36.9; O2SAT 98–100; BMI 23.0
--- NOTE | 2023-10-29 10:48 | DI.CT.S_ITS ---
PROCEDURE: CT HEAD/BRAIN WO CON INDICATIONS: Altered mental status TECHNIQUE: Noncontrast 4.5 mm thick angled axial sections acquired from the foramen magnum to the vertex, with coronal and sagittal reformats. For radiation dose reduction, the following was used: automated exposure control, adjustment of mA and/or kV according to patient size. COMPARISON: None. FINDINGS: Image quality: Diagnostic. CSF spaces: Basal cisterns are patent. No extra-axial fluid collections. Ventricles are normal in size and shape. Brain: No midline shift. No intracranial masses or hemorrhage. [place]-white matter interface is normal. Skull and face: Calvarium and visualized facial bones are intact, without suspicious lesions. Sinuses: Visualized sinuses and mastoids are clear. IMPRESSION: CT head without acute intracranial abnormalities. No mass or mass effect visualized. Dictated by: Jossue Tao M.D. on 10/29/2023 at 11:19 Approved by: Jossue Tao M.D. on 10/29/2023 at 11:20
--- NOTE | 2023-10-29 10:51 | ED.SEIZURE ---
HPI - Seizure General Chief Complaint: Seizure Stated Complaint: had seizure Time Seen by Provider: 10/29/23 10:39 Source: patient Mode of arrival: Ambulatory Limitations: no limitations History of Present Illness HPI Narrative: Patient brought here by for convulsion episodes. First episode occurred 2 days ago to home. She was doing housework and felt her mouth and tongue twitching both sides. And her eyes were flickering both sides. And then both of her arms were convulsing. She laid down on the couch and the next thing she remembered it is being on the floor without any pain or injury, she was facing the couch. She did have urinary incontinence. She got herself up and walk to her , he did not hear of the event. It took her about 2-3 minutes to clear her thoughts. No postictal event. No problems yesterday or recurrence. However today about 45 minutes prior to arrival, she was in the bathroom getting ready for the day. Again she felt her mouth twitching and I flickering but no arm convulsing. She sat down on a chair in the bathroom and then lowered herself to the floor and called out to the hallway. She tried speaking but her mouth was twitching. She was trying to call out to her son. She is at baseline this time. No bowel or bladder incontinence with today's event. No prior history of seizures arrhythmia strokes brain aneurysms or tumors with herself or family. No recent new medications other than using Mucinex once on Saturday. None was used today. Denies any prevent headache. No confusion. No pre event headache or numbness tingling or weakness or palpitations or chest pain back pain or abdominal pain. Patient denies any alcohol abuse. No drug abuse Related Data Home Medications Medication Instructions Recorded Confirmed calcium carbonate 500 mg calcium 500 mg PO DAILY 03/18/19 01/28/23 (1,250 mg) tablet omega 2-aty-sjv-fish oil 1,000 mg 1 cap PO DAILY 03/18/19 01/28/23 (120 mg-180 mg) capsule cholecalciferol (vitamin D3) 25 1,000 unit DAILY 02/16/20 01/28/23 mcg (1,000 unit) capsule (Vitamin D3) Previous Rx's Medication Instructions Recorded anastrozole 1 mg tablet 1 mg PO DAILY #30 tabs 05/21/22 Allergies Allergy/AdvReac Type Severity Reaction Status Date / Time No Known Drug Allergies Allergy Verified 01/28/23 11:17 Review of Systems Review of Systems Narrative: GENERAL: negative chills, fatigue, malaise, fever, sweats. HEENT: negative sinus pain, ear pain, sore throat RESPIRATORY: negative dyspnea, cough CARDIOVASCULAR: negative chest pain, palpitations GASTROINTESTINAL: negative nausea, vomiting, abdominal pain : negative dysuria, frequency, hematuria, positive urinary incontinence MUSCULOSKELETAL: negative muscle or bony pain SKIN: negative rash, skin lesions NEUROLOGIC: negative weakness, numbness, positive convulsions/seizure Patient History Medical History Well adult Sebaceous cyst Surgical History Status post hysterectomy (12/31/16) Status post partial mastectomy (04/29/15) Family History Father Stroke Mother Hypertension Grandmother Cancer Social History marital status: household members: spouse Smoking Status: Never smoker alcohol intake: current substance use type: does not use Smoking Status: Never smoker Substance Use Type: does not use Exam Narrative Exam Narrative: GENERAL: in no distress, not toxic not dyspneic HEAD: Normocephalic. EYES: Pupils equal round no nystagmus ENT: Mucous membranes moist. NECK: Trachea midline. CARDIOVASCULAR: Regular rate and rhythm RESPIRATORY: Clear to auscultation. Breath sounds equal bilaterally. No wheezes, rales, or rhonchi. GASTROINTESTINAL: Abdomen soft, non-tender EXTREMITIES: No gross deformities. BACK: No flank tenderness. NEURO: AOx4. Clear speech no facial droop light touch intact to bilateral face hands and legs. Strong equal tile layer drainage. Negative pronator drift. Elevate each leg off bed without difficulty. Patient with steady self gait in the room. No ataxia SKIN: Warm and dry PSYCH: Not anxious, is cooperative Initial Vital Signs Initial Vital Signs: Vital Signs Pulse Rate 87 10/29/23 10:36 Pulse Oximetry 99 10/29/23 10:36 Course Orders Ordered: Discontinued Medications Sodium Chloride (Normal Saline 0.9%) 500 mls @ 1,000 mls/hr IV BOLUS ONE Stop: 10/29/23 11:26 Last Infusion: 10/29/23 12:04 Dose: Infused Documented By: Admin: 10/29/23 11:32 Dose: 1,000 mls/hr Documented By: TONE Levetiracetam 1,000 mg/ Sodium (Chloride) 110 mls @ 440 mls/hr IV NOW ONE Stop: 10/29/23 11:23 Last Infusion: 10/29/23 12:02 Dose: Infused Documented By: Admin: 10/29/23 11:44 Dose: 440 mls/hr Documented By: TONE Lorazepam (Lorazepam 2 Mg/Ml Inj) 0.5 mg IV NOW ONE Stop: 10/29/23 11:22 Last Admin: 10/29/23 11:23 Dose: 0.5 mg Documented By: TONE Vital Signs Vital signs: Vital Signs - 8 hr 10/29/23 10:36 10/29/23 10:37 10/29/23 10:37 Temperature Pulse Rate 87 78 Respiratory Rate Blood Pressure 161/74 H Pulse Oximetry 99 100 Oxygen Delivery Method Room Air 10/29/23 10:39 10/29/23 11:21 10/29/23 11:21 Temperature 98.5 F Pulse Rate 76 91 H Respiratory Rate 18 20 Blood Pressure 161/74 H 175/95 H Pulse Oximetry 100 100 Oxygen Delivery Method Room Air Room Air 10/29/23 11:30 10/29/23 11:31 10/29/23 11:31 Temperature Pulse Rate 81 78 Respiratory Rate 18 Blood Pressure 141/74 H Pulse Oximetry 99 98 Oxygen Delivery Method Room Air MDM - Seizure Lab Data 10/29/23 11:00 10/29/23 11:00 Labs: Lab Results 10/29/23 10/29/23 10/29/23 Range/Units 11:00 12:47 13:42 WBC 5.7 (4.5-11.0) X10^3/uL RBC 4.30 (4.0-5.2) X10^6/uL Hgb 12.7 (12.0-16.0) g/dL Hct 37.2 (36-46) % MCV 86.7 (80-100) fL MCH 29.5 (26-34) PG MCHC 34.1 (30-36) % RDW 13.4 (11.6-14.8) % Plt Count 303 (150-400) X10^3/uL Neut % (Auto) 62.7 (50-75) % Lymph % (Auto) 27.4 (25-40) % [place] % (Auto) 8.2 (3-14) % Eos % (Auto) 1.2 L (2-4) % Baso % (Auto) 0.5 (0-2) % Neut # (Auto) 3500 (4636-9967) /uL Lymph # (Auto) 1600 (3288-5996) /uL [place] # (Auto) 500 (0-900) /uL Eos # (Auto) 100 (0-450) /uL Baso # (Auto) 0 (0-100) /uL Sodium 140 (137-145) mmol/L Potassium 4.0 (3.4-5.1) mmol/L Chloride 106 (98-107) mmol/L Carbon Dioxide 26 (22-32) mmol/L BUN 19 H (7-17) mg/dL Creatinine 0.75 (0.52-1.04) mg/dL Estimated GFR > 60 (>60) mL/min BUN/Creatinine Ratio 25.3 H (6-22) Glucose 106 H (70-100) mg/dL Calcium 9.8 (8.4-10.2) mg/dL Total Bilirubin 0.4 (0.2-1.3) mg/dL AST 34 (14-36) IU/L ALT 21 (<35) IU/L Alkaline Phosphatase 88 (38-126) U/L Total Protein 7.8 (6.3-8.2) g/dL Albumin 4.7 (3.5-5.0) g/dL Globulin 3.1 (1.7-4.1) g/dL Albumin/Globulin Ratio 1.5 (1.0-2.8) U Opiates 300ng/mL cut Negative (Negative) Ur Oxycodone Screen Negative (Negative) Urine Methadone Screen Negative (Negative) Ur Barbiturates Screen Negative (Negative) U Tricyclic Antidepress Negative (Negative) Ur Phencyclidine Scrn Negative (Negative) Ur Amphetamines Screen Negative (Negative) U Methamphetamines Scrn Negative (Negative) Ur MDMA Scrn (Ecstasy) Negative (Negative) U Benzodiazepines Scrn Negative (Negative) Urine Cocaine Screen Negative (Negative) U Marijuana (THC) Screen Negative (Negative) Urine pH Normal (Normal) Urine Specific [place] Normal (Normal) Ethyl Alcohol < 10 ( - 10) mg/dL Ur Creatinine Normal (Normal) Chlamy pneumoniae PCR Not detected (Not Detect) Adenovirus (PCR) Not detected (Not Detect) B.parapertussis DNA PCR Not detected (Not Detecte) Coronavirus OC43 (PCR) Not detected (Not Detect) Coronavirus HKU1 (PCR) Not detected (Not Detect) Coronavirus 229E (PCR) Not detected (Not Detect) SARS-CoV-2 (PCR) Not detected (Not Detecte) Coronavirus NL63 (PCR) Not detected (Not Detect) Human Metapneumovir PCR Not detected (Not Detect) Influenza Type A (PCR) Not detected (Not Detect) Influenza Type B (PCR) Not detected (Not Detect) M. pneumoniae (PCR) Not detected (Not Detect) Parainfluenza 1 (PCR) Not detected (Not Detect) Parainfluenza 2 (PCR) Not detected (Not Detect) Parainfluenza 3 (PCR) Not detected (Not Detect) Parainfluenza 4 (PCR) Not detected (Not Detect) RSV (PCR) Not detected (Not Detect) Entero/Rhino (PCR) Detected H (Not Detect) Imaging Data CT scan - head: Radiologist's Impression: [place] [address] CT Scan Report Signed Patient: Verónica Cobian I MR#: [id number] : 1965 Acct:[id number] Age/Sex: 58 / F Date of Service: 10/29/23 Loc: ED Accession Number: [id number] Procedure: CT head/brain wo con Ordering Provider: Julio Grace MD PROCEDURE: CT HEAD/BRAIN WO CON INDICATIONS: Altered mental status TECHNIQUE: Noncontrast 4.5 mm thick angled axial sections acquired from the foramen magnum to the vertex, with coronal and sagittal reformats. For radiation dose reduction, the following was used: automated exposure control, adjustment of mA and/or kV according to patient size. COMPARISON: None. FINDINGS: Image quality: Diagnostic. CSF spaces: Basal cisterns are patent. No extra-axial fluid collections. Ventricles are normal in size and shape. Brain: No midline shift. No intracranial masses or hemorrhage. [place]-white matter interface is normal. Skull and face: Calvarium and visualized facial bones are intact, without suspicious lesions. Sinuses: Visualized sinuses and mastoids are clear. IMPRESSION: CT head without acute intracranial abnormalities. No mass or mass effect visualized. Dictated by: Jossue Tao M.D. on 10/29/2023 at 11:19 Approved by: Jossue Tao M.D. on 10/29/2023 at 11:20 CTA - brain/neck: Radiologist's Impression: [address] [address] [address] Scan Report Signed Patient: Verónica Cobian I MR#: [id number] : 1965 Acct:[id number] Age/Sex: 58 / F Date of Service: 10/29/23 Loc: ED Accession Number: [id number] Procedure: CT angio head and neck Ordering Provider: Julio Grace MD PROCEDURE: CT ANGIO HEAD AND NECK INDICATIONS: Altered mental status TECHNIQUE: After the administration of intravenous contrast, 1 mm thick sections acquired from the aortic arch through the [place]. 3-dimensional kmtjjfg-npeubznnj-gapowaiixd (MIP) and/or volume rendering reformats were acquired of the central intracranial vasculature and neck separately. For radiation dose reduction, the following was used: automated exposure control, adjustment of mA and/or kV according to patient size. COMPARISON: [facility], CT, CT HEAD/BRAIN WO CON, 10/29/2023, 11:07. FINDINGS: Image quality: Diagnostic. BRAIN: CSF spaces: Ventricles are normal in size and shape. Basal cisterns are patent. No extra-axial fluid collections. Brain: No significant abnormality of the brain can be seen. Skull and face: Calvarium and facial bones appear intact, without suspicious lesions. Orbits appear normal. Sinuses: Sinuses and mastoids are clear. HEAD CT ANGIOGRAPHY: Anterior circulation: Intracranial internal carotid arteries are normal in size and flow. The flow within the paired anterior cerebral arteries is normal and symmetric. The flow within the middle cerebral arteries is normal and symmetric. The anterior communicating artery is seen. No aneurysms are seen. Posterior circulation: Visualized portions of the vertebral arteries demonstrate normal caliber, and join to form a normal appearing basilar artery. Flow within the posterior cerebral arteries is normal and symmetric. No aneurysms are seen. NECK CT ANGIOGRAPHY: Carotid system: The great vessels demonstrate a conventional anatomy as they arise from the aortic arch. The origins of the common carotid arteries appear patent. The common carotid arteries demonstrate normal caliber and courses. The bifurcation regions are both widely patent. The internal carotid arteries demonstrate normal calibers and courses. Posterior circulation: The origins of the vertebral arteries both appear widely patent. The more superior extracranial portions of both vertebral arteries also demonstrate normal courses and calibers. They join to form a normal appearing basilar artery. Soft tissues: Visualized neck soft tissues demonstrate no suspicious abnormalities. Pleural parenchymal scarring in the extreme right apex. Bones: No suspicious bony lesions. Visualized cervical spine appears normally aligned. IMPRESSION: No significant intracranial arterial abnormality is seen. No significant abnormality is seen within the arteries of the neck. Any quantitative measurements of stenosis were performed using NASCET criteria. Dictated by: Russell Baker M.D. on 10/29/2023 at 11:32 Approved by: Russell Baker M.D. on 10/29/2023 at 11:35 MDM Narrative Medical decision making narrative: Patient brought here by for convulsion episodes. First episode occurred 2 days ago to home. She was doing housework and felt her mouth and tongue twitching both sides. And her eyes were flickering both sides. And then both of her arms were convulsing. She laid down on the couch and the next thing she remembered it is being on the floor without any pain or injury, she was facing the couch. She did have urinary incontinence. She got herself up and walk to her , he did not hear of the event. It took her about 2-3 minutes to clear her thoughts. No postictal event. No problems yesterday or recurrence. However today about 45 minutes prior to arrival, she was in the bathroom getting ready for the day. Again she felt her mouth twitching and I flickering but no arm convulsing. She sat down on a chair in the bathroom and then lowered herself to the floor and called out to the hallway. She tried speaking but her mouth was twitching. She was trying to call out to her son. She is at baseline this time. No bowel or bladder incontinence with today's event. No prior history of seizures arrhythmia strokes brain aneurysms or tumors with herself or family. No recent new medications other than using Mucinex once on Saturday. None was used today. Denies any prevent headache. No confusion. No pre event headache or numbness tingling or weakness or palpitations or chest pain back pain or abdominal pain. Patient denies any alcohol abuse. No drug abuse After history and exam seizure precaution media monitor EKG CT head CT angiogram head and neck CBC CMP alcohol drug screen MDM Medical records reviewed: No recent visit for this complaint Differential considered: Includes but not limited to new onset seizure alcohol withdrawal brain tumor stroke Lab Test results independently reviewed as above. Pertinent findings: WBC 5.7 hemoglobin 12.7 Sodium 140 potassium 4.0 BUN 19 creatinine 0.75 glucose 106 drug screen negative alcohol negative respiratory panel positive rhino virus Independently reviewed EKG normal sinus rhythm normal EKG rate 74 Imaging studies independently reviewed: CT head CT angiogram head and neck no acute finding Consultations: 12:30 pm, spoke with Marizol johnson, Neurology, Dr. Saha, she will accept patient, hospitalist to admit. 12:56 p.m.. Spoke with Marizol johnson hospitalist, dr piedra, will admit Treatments: Normal saline Ativan Keppra Re-evaluations: 11:23 a.m.. We just witnessed a tonic-clonic seizure with patient. Lasted 2 minutes. Ativan 0.5 mg given. Keppra 1000 mg ordered. Patient now awake. Was aware that she did have a seizure. No tongue biting or abrasion. 12:35 p.m.. Spoke with patient and . They do understand and agree for transfer as we do not have neurology services here. Discussion: Appropriate for transfer as we do not have Neurology here. Patient essentially is status epilepticus. Neurology has been consulted and Marizol johnson hospitalist to call back for admission, at this time rhino virus positive on nasal swab however lack of fever and headache likely not encephalitis or meningitis. No antibiotics are indicated at this time. No spinal tap. Diagnosis: New onset seizure Discharge Plan Departure Patient Disposition: [facility] Clinical Impression: New onset seizure Prescriptions: No Action anastrozole 1 mg tablet 1 mg PO DAILY Qty: 30 11RF calcium carbonate 500 mg calcium (1,250 mg) tablet 500 mg PO DAILY omega 2-rlk-glc-fish oil 1,000 mg (120 mg-180 mg) capsule 1 cap PO DAILY cholecalciferol (vitamin D3) [Vitamin D3] 25 mcg (1,000 unit) Capsule 1,000 unit DAILY Referrals: Chandler Mark DO [Primary Care Provider] -
[2023-10-29 11:09] LABS: Add Manual Diff / Slide Review NO; Basophils Absolute Auto 0 /uL (0-100); Basophils Percent Auto 0.5 % (0-2); Eosinophils Absolute Auto 100 /uL (0-450); Eosinophils Percent Auto 1.2 % (2-4); Hematocrit 37.2 % (36-46); Hemoglobin 12.7 g/dL (12.0-16.0); Lymphocytes Absolute Auto 1600 /uL (1100-4500); Lymphocytes Percent Auto 27.4 % (25-40); Mean Corpuscular HGB Conc 34.1 % (30-36); Mean Corpuscular Hemoglobin 29.5 PG (26-34); Mean Corpuscular Volume 86.7 fL (80-100); Monocytes Absolute Auto 500 /uL (0-900); Monocytes Percent Auto 8.2 % (3-14); Neutrophils Absolute Auto 3500 /uL (1500-7000); Neutrophils Percent Auto 62.7 % (50-75); Platelet Count 303 X10^3/uL (150-400); Red Cell Distribution Width 13.4 % (11.6-14.8); White Blood Cell Count 5.7 X10^3/uL (4.5-11.0)
--- NOTE | 2023-10-29 11:19 | PC.NURSE ---
[place] weight reducing technician was in patient's room when patient began convulsing. Dr. Grace immediately at bedside. Patient convulsed for a minute. No injury or loss of bladder/ bowel. Patient alert and oriented at 1125.
[2023-10-29] MEDS: LORazepam 2 MG/ML INJ 0.5 MG IV (11:23)
[2023-10-29 11:26] LABS: Ethanol (ETOH) < 10 mg/dL
[2023-10-29 11:27] LABS: Alanine Aminotransferase 21 IU/L (<35); Albumin 4.7 g/dL (3.5-5.0); Albumin Globulin Ratio 1.5 (1.0-2.8); Alkaline Phosphatase 88 U/L (38-126); Aspartate Aminotransferase 34 IU/L (14-36); BUN Creatinine Ratio 25.3 (6-22); Bilirubin Total 0.4 mg/dL (0.2-1.3); Blood Urea Nitrogen 19 mg/dL (7-17); Calcium 9.8 mg/dL (8.4-10.2); Carbon Dioxide 26 mmol/L (22-32); Chloride 106 mmol/L (98-107); Estimated Glomerular Filt Rate > 60 mL/min (>60); Globulin 3.1 g/dL (1.7-4.1); Glucose 106 mg/dL (70-100); HEMOLYSIS < 15 (0-50); Sodium 140 mmol/L (137-145); Total Protein 7.8 g/dL (6.3-8.2)
[2023-10-29] MEDS: SODIUM CHLORIDE 0.9% 500 ML 1000 ML IV (11:32)
--- NOTE | 2023-10-29 11:35 | PC.NURSE ---
Spoke to Aury at [facility] who stated they have no beds they are very full and currently boarding Spoke to Ely at [facility] who stated to try to call back in 4 hours
[2023-10-29] MEDS: levETIRAcetam 1,000 MG in SODIUM CHLORIDE 0.9% 100 ML 440 MG IV (11:44)
[2023-10-29 13:53] LABS: Adenovirus Not Detected (Not Detect); B. parapertussis Not Detected (Not Detecte); Bordetella pertussis Not Detected (Not Detect); Chlamydophila pneumoniae Not Detected (Not Detect); Coronavirus 229E Not Detected (Not Detect); Coronavirus HKU1 Not Detected (Not Detect); Coronavirus NL 63 Not Detected (Not Detect); Coronavirus OC43 Not Detected (Not Detect); Human Metapneumovirus Not Detected (Not Detect); Human Rhinovirus/Enterovirus Detected (Not Detect); Influenza A Not Detected (Not Detect); Influenza B Not Detected (Not Detect); Mycoplasma pneumoniae Not Detected (Not Detect); Parainfluenza Virus 1 Not Detected (Not Detect); Parainfluenza Virus 2 Not Detected (Not Detect); Parainfluenza Virus 3 Not Detected (Not Detect); Parainfluenza Virus 4 Not Detected (Not Detect); Respiratory Syncytial Virus Not Detected (Not Detect); SARS- CoV-2 Not Detected (Not Detecte)
[2023-10-29 14:03] LABS: UR Morphine/Opiate cutoff 300 Negative (Negative); Ur Creatinine Normal (Normal); Ur Specific Gravity Normal (Normal); Urine Amphetamines Negative (Negative); Urine Barbiturates Negative (Negative); Urine Benzodiazepines Negative (Negative); Urine Cocaine Negative (Negative); Urine MDMA Negative (Negative); Urine Methadone Negative (Negative); Urine Methamphetamines Negative (Negative); Urine Oxycodone Negative (Negative); Urine Phencyclidine Negative (Negative); Urine Tetrahydrocannabinol Negative (Negative); Urine Tricyclic Antidepressant Negative (Negative); Urine pH Normal (Normal)
--- NOTE | 2023-10-29 14:33 | PC.NURSE ---
Report given to Claudio KRUEGER [facility].
--- NOTE | 2023-10-29 14:52 | PC.NURSE ---
Report given to Juana KRUEGER at [facility] ext: [id number].
== END 2023-10-29 14:55 | disposition short-term general hospital (02) ==
PROVIDERS: Emergency Provider Emergency Medicine; Family Provider Family Medicine; PCP Family Medicine
DX: R56.9 Unspecified convulsions (principal); Z20.822 Contact with and (suspected) exposure to COVID-19
CPT/HCPCS: 36415; 70450; 70496; 70498; 80053; 80305; 80320; 85025; 87633; 93005; 96365; 96375; 99284; J1953; J2060; Q9967

== ENCOUNTER 2023-11-18 09:08 | Emergency (ER) | payer OTHER, MEDICAID, SELFPAY ==
[2023-11-18] VITALS (32 sets, daily range): BP systolic 105–150; BP diastolic 51–84; PULSE 68–93; RESP 15–27; TEMP 36.7–37; O2SAT 95–100; BMI 26.4
--- NOTE | 2023-11-18 09:20 | ED.GENADULT ---
HPI - General Adult General Chief complaint: Seizure Stated complaint: seizure Time Seen by Provider: 11/18/23 09:20 History of Present Illness HPI narrative: 58-year-old female with recent seizures that led to diagnosis of right-sided brain cancer, status post neurosurgery excision at [facility] 11/04/[address] Escobar, awaiting postsurgical follow up with her neurosurgeon, was discharged on Keppra to take 500 mg twice daily, and tapering Decadron oral schedule that is completed today. Noted by this evening after drinking coffee, to walk over to her medications, then seemed to be quite shaky, arms and legs, did not lose consciousness, no incontinence of urine or stool, 911 called for possible seizure, no medications given during transport, less shaky, some left facial twitching that is new. No fall or injury recalled. Postoperatively the relays that she has been able to speak clearly, able to move arms and legs and function normally, had no abnormal sensation. states that he has been giving once a day Keppra, though prescription on the bottle says 500 mg twice a day, likely under dosed Related Data Home Medications Medication Instructions Recorded Confirmed calcium carbonate 500 mg calcium 500 mg PO DAILY 03/18/19 01/28/23 (1,250 mg) tablet omega 0-lzz-apg-fish oil 1,000 mg 1 cap PO DAILY 03/18/19 01/28/23 (120 mg-180 mg) capsule cholecalciferol (vitamin D3) 25 1,000 unit DAILY 02/16/20 01/28/23 mcg (1,000 unit) capsule (Vitamin D3) Previous Rx's Medication Instructions Recorded anastrozole 1 mg tablet 1 mg PO DAILY #30 tabs 05/21/22 dexamethasone 2 mg tablet 2 mg PO BID #14 tabs 11/18/23 Allergies Allergy/AdvReac Type Severity Reaction Status Date / Time No Known Drug Allergies Allergy Verified 01/28/23 11:17 Review of Systems Review of Systems Narrative: as per HPI Patient History Medical History Well adult Sebaceous cyst Surgical History Status post hysterectomy (12/31/16) Status post partial mastectomy (04/29/15) Family History Father Stroke Mother Hypertension Grandmother Cancer Social History marital status: household members: spouse Smoking Status: Never smoker alcohol intake: current substance use type: does not use Smoking Status: Never smoker Substance Use Type: does not use Exam Narrative Exam Narrative: GENERAL: Well-developed patient, in mild distress. HEAD: Right temporal horizontal scalp wound with makenzie intact, wound looks good, no redness or discharge or tenderness or swelling, approximately 10 cm in length EYES: Pupils equal round and reactive. Extraocular motions intact. No scleral icterus. No injection or drainage. ENT: Nose without bleeding, purulent drainage. Throat without erythema, tonsillar hypertrophy or exudate. Airway patent. NECK: Trachea midline. Non tender CARDIOVASCULAR: Regular rate and rhythm without murmurs, gallops, or rubs. RESPIRATORY: Clear to auscultation. Breath sounds equal bilaterally. No wheezes, rales, or rhonchi. GASTROINTESTINAL: Abdomen soft, non-tender, nondistended. EXTREMITIES: No edema or joint tenderness. BACK: Nontender without deformity or crepitance. No flank tenderness. NEURO: Frequent twitching left side of her face, has difficulty verbalizing, we will use her left hand to hold the corners of her lips to assist with clear speech that seems to help. Pupils equal round reactive to light, extraocular muscle function intact. No facial droop. Extrudes and deviates tongue without difficulty. Sensation intact to light touch on facial upper mid lower and neck, sensation intact to light touch upper extremities and lower extremities. Motor strength upper extremities 5/5, motor strength lower extremities 5/5. [id number] testing normal. SKIN: No rash or erythema of visible areas Initial Vital Signs Initial Vital Signs: Vital Signs Pulse Rate 77 11/18/23 09:12 Pulse Oximetry 100 11/18/23 09:12 Course Orders Ordered: ED Orders 11/18/23 12:02 CBC Auto Diff [Complete Blood Count AUTO DIFF] Stat CMP [Comprehensive Metabolic Panel] Stat Type and Screen Stat Discontinued Medications Levetiracetam 500 mg/ Sodium (Chloride) 105 mls @ 420 mls/hr IV NOW ONE Stop: 11/18/23 09:25 Last Infusion: 05/27/24 09:48 Dose: Infused Documented By: Admin: 11/18/23 09:28 Dose: 420 mls/hr Documented By: CEE Lorazepam (Lorazepam 2 Mg/Ml Inj) 2 mg IV NOW ONE Stop: 11/18/23 09:58 Last Admin: 11/18/23 10:33 Dose: 2 mg Documented By: CEE Vital Signs Vital signs: Vital Signs - 8 hr 11/18/23 12:10 11/18/23 12:10 11/18/23 12:20 Temperature Pulse Rate 74 Respiratory Rate 20 Blood Pressure 111/61 111/63 Pulse Oximetry 98 Oxygen Delivery Method 11/18/23 12:20 11/18/23 12:30 11/18/23 12:30 Temperature Pulse Rate 82 82 Respiratory Rate 21 18 Blood Pressure 108/59 L Pulse Oximetry 95 98 Oxygen Delivery Method 11/18/23 12:40 11/18/23 12:40 11/18/23 12:50 Temperature Pulse Rate 89 Respiratory Rate 21 Blood Pressure 110/61 120/63 Pulse Oximetry 97 Oxygen Delivery Method 11/18/23 12:50 11/18/23 13:00 11/18/23 13:00 Temperature Pulse Rate 80 84 Respiratory Rate 16 18 Blood Pressure 128/64 Pulse Oximetry 99 98 Oxygen Delivery Method 11/18/23 13:09 11/18/23 13:10 11/18/23 13:10 Temperature Pulse Rate 80 85 Respiratory Rate 20 16 Blood Pressure 117/77 Pulse Oximetry 99 98 Oxygen Delivery Method 11/18/23 13:21 11/18/23 13:21 11/18/23 13:30 Temperature Pulse Rate 83 83 Respiratory Rate 19 21 Blood Pressure 118/71 Pulse Oximetry 99 99 Oxygen Delivery Method 11/18/23 13:31 11/18/23 13:31 11/18/23 13:41 Temperature Pulse Rate 84 Respiratory Rate 21 Blood Pressure 149/65 H 105/51 L Pulse Oximetry 99 Oxygen Delivery Method 11/18/23 13:41 11/18/23 13:50 11/18/23 13:50 Temperature Pulse Rate 86 93 H Respiratory Rate 19 19 Blood Pressure 115/54 L Pulse Oximetry 100 98 Oxygen Delivery Method 11/18/23 14:04 Temperature 98.6 F Pulse Rate 93 H Respiratory Rate 19 Blood Pressure 115/54 L Pulse Oximetry 97 Oxygen Delivery Method Room Air Medical Decision Making Lab Data 11/18/23 12:02 11/18/23 12:02 Labs: Lab Results 11/18/23 11/18/23 Range/Units 09:10 12:02 WBC 9.6 10.3 (4.5-11.0) X10^3/uL RBC 4.58 4.44 (4.0-5.2) X10^6/uL Hgb 13.6 13.3 (12.0-16.0) g/dL Hct 40.3 39.1 (36-46) % MCV 87.8 88.1 (80-100) fL MCH 29.7 29.9 (26-34) PG MCHC 33.8 34.0 (30-36) % RDW 14.3 14.3 (11.6-14.8) % Plt Count 393 303 (150-400) X10^3/uL Neut % (Auto) 62.2 83.0 H D (50-75) % Lymph % (Auto) 28.7 12.1 L (25-40) % [place] % (Auto) 8.0 4.3 (3-14) % Eos % (Auto) 0.7 L 0.2 L (2-4) % Baso % (Auto) 0.4 0.4 (0-2) % Neut # (Auto) 6000 8500 H (9694-7506) /uL Lymph # (Auto) 2800 1200 (9719-0481) /uL [place] # (Auto) 800 400 (0-900) /uL Eos # (Auto) 100 0 (0-450) /uL Baso # (Auto) 0 0 (0-100) /uL PT 11.1 (9.4-12.5) SECONDS INR 1.0 (0.9-1.3) Sodium 137 138 (137-145) mmol/L Potassium 3.7 4.4 (3.4-5.1) mmol/L Chloride 102 105 (98-107) mmol/L Carbon Dioxide 29 30 (22-32) mmol/L BUN 17 16 (7-17) mg/dL Creatinine 0.74 0.68 (0.52-1.04) mg/dL Estimated GFR > 60 > 60 (>60) mL/min BUN/Creatinine Ratio 23.0 H 23.5 H (6-22) Glucose 99 108 H (70-100) mg/dL Lactate 0.9 (0.7-2.1) mmol/L Calcium 9.2 8.9 (8.4-10.2) mg/dL Total Bilirubin 0.6 0.8 (0.2-1.3) mg/dL AST 22 31 (14-36) IU/L ALT 18 19 (<35) IU/L Alkaline Phosphatase 96 73 (38-126) U/L Total Protein 7.6 7.4 (6.3-8.2) g/dL Albumin 4.5 4.3 (3.5-5.0) g/dL Globulin 3.1 3.1 (1.7-4.1) g/dL Albumin/Globulin Ratio 1.5 1.4 (1.0-2.8) Blood Type A Positive Antibody Screen Negative Point of Care Testing Glucose POC 101 Point of care testing: Point of Care Testing Glucose POC [address] scan - head: Radiologist's Impression: [address] [address] [address] Scan Report Signed Patient: Verónica Cobian I MR#: [id number] : 1965 Acct:[id number] Age/Sex: 58 / F Date of Service: 11/18/23 Loc: ED Accession Number: [id number] Procedure: CT head/brain wo con Ordering Provider: Demetrio Garcia MD PROCEDURE: CT HEAD/BRAIN WO CON INDICATIONS: twitching left face TECHNIQUE: Noncontrast 4.5 mm thick angled axial sections acquired from the foramen magnum to the vertex, with coronal and sagittal reformats. For radiation dose reduction, the following was used: automated exposure control, adjustment of mA and/or kV according to patient size. COMPARISON: [facility], CT, CT HEAD/BRAIN WO CON, 10/29/2023, 11:07. FINDINGS: Image quality: Diagnostic. CSF spaces: Basal cisterns are patent. Small subdural fluid deep to the craniotomy measuring approximately 3 mm in maximal depth. Likely postsurgical in etiology. Ventricles are normal in size and shape. Brain: No midline shift. No intracranial masses or hemorrhage. Peterson-white matter interface is normal. Skull and face: Right-sided craniotomy changes. Calvarium and visualized facial bones are intact, without suspicious lesions. Sinuses: Visualized sinuses and mastoids are clear. IMPRESSION: Postsurgical changes from right-sided craniotomy. Small extra-axial fluid deep to the craniotomy, likely postsurgical in etiology. No mass effect or midline shift. Otherwise, no acute intracranial abnormalities. Dictated by: Henrique Mondragon M.D. on 11/18/2023 at 10:27 Approved by: Henrique Mondragon M.D. on 11/18/2023 at 10:29 [facility] Narrative Medical decision making narrative: 58-year-old female now 14 days postop right brain excision surgery [facility], completed oral tapering schedule Decadron, prior seizure leading to the diagnosis, also apparently 1 seizure while in hospital, discharged on Keppra 500 mg twice daily, although has been giving once daily dose mistakenly. IV Keppra 500 mg load. Glucose >100 here noted. Other labs pending. CT head noncontrast study requested. CT head showed postoperative craniotomy changes, no mention of acute appearing hemorrhage or abscess or other acute changes. See radiology report. Additional Information: White blood cell count not elevated, serum CO2 not decreased, lactate normal. Patient able to speak, somewhat slowly but improved from before, further observe for now 1245, RN reports patient speaking more fluidly, still has some slow speech, approach recent postoperative baseline, she has been here now 3-1/2 hours, CT negative, we will contact Neurology at [facility] to see if they have any other recommendations. 1330, case discussed with Dr. Muse of Neurosurgery [facility], covering for her neurosurgeon Dr. Escobar, who believes patient can be discharged home now, might still be having some postictal residual symptoms but no need to transfer, no further workup advised, encouraged patient to take Keppra 500 mg twice daily not once daily, as prescribed. She also suggests Decadron 2 mg by mouth twice daily for 1 more week, noting that she should otherwise be scheduled to decrease the tapering regimen today. Further steroids for a week. Follow up as planned for her post surgical consultation on 11/22/2023 advised. Return precautions, home with Critical Care Time Critical Care Time Critical Care Time: Yes Total Critical Care Time: 35 Attestation: The high probability of a clinically significant, sudden or life threatening deterioration of the [neurological, neurosurgical] system(s) required my full and direct attention, intervention and personal management. The aggregate critical care time was [35] minutes. This time is in addition to time spent performing reported procedures but includes the following: [x] Data Review and interpretation [x] Patient assessment and monitoring of vital signs [x] Documentation [x] Medication orders and management Discharge Plan Departure Patient Disposition: Home Clinical Impression: Seizure, History of brain cancer, History of craniotomy Activity Restrictions/Additional Instructions: Possible seizure activity, now 14 days status post neurosurgery excision of a tumor, awaiting final diagnosis in follow up, next appointment on Saturday upcoming. EMS arrival, IV Ativan given in the emergency department, Keppra dose had been given just once daily instead of twice daily, IV Keppra loading dose given. Improved symptoms, observed for a number of hours here in the emergency department. CT scan of the head showed postoperative changes but no acute appearing hemorrhage or abscess or complications at this time, per radiologist's report. Case discussed with [facility] and Dr. Muse at [facility], who did not feel that you need to be transferred to their service, who felt that you are stable for discharge now, who was aware that your Decadron steroid tapering schedule was to be completed today, she advises further Decadron at 2 mg twice daily for 7 more days. Please do take your Keppra 500 mg doses twice daily as prescribed, try hard not to miss any doses, to prevent future breakthrough seizures. Follow up as planned for your neurosurgery appointment. Return earlier to this/nearest emergency department for any change worsening symptoms or any concerns prior Prescriptions: New dexamethasone 2 mg tablet 2 mg PO BID Qty: 14 0RF No Action anastrozole 1 mg tablet 1 mg PO DAILY Qty: 30 11RF calcium carbonate 500 mg calcium (1,250 mg) tablet 500 mg PO DAILY omega 0-bnf-vyb-fish oil 1,000 mg (120 mg-180 mg) capsule 1 cap PO DAILY cholecalciferol (vitamin D3) [Vitamin D3] 25 mcg (1,000 unit) Capsule 1,000 unit DAILY Referrals: Chandler Mark DO [Primary Care Provider] - Stand Alone Forms: Patient Portal/API
[2023-11-18] MEDS: levETIRAcetam 500 MG in SODIUM CHLORIDE 0.9% 100 ML 420 MG IV (09:28)
--- NOTE | 2023-11-18 09:58 | DI.CT.S_ITS ---
PROCEDURE: CT HEAD/BRAIN WO CON INDICATIONS: twitching left face TECHNIQUE: Noncontrast 4.5 mm thick angled axial sections acquired from the foramen magnum to the vertex, with coronal and sagittal reformats. For radiation dose reduction, the following was used: automated exposure control, adjustment of mA and/or kV according to patient size. COMPARISON: [facility], CT, CT HEAD/BRAIN WO CON, 10/29/2023, 11:07. FINDINGS: Image quality: Diagnostic. CSF spaces: Basal cisterns are patent. Small subdural fluid deep to the craniotomy measuring approximately 3 mm in maximal depth. Likely postsurgical in etiology. Ventricles are normal in size and shape. Brain: No midline shift. No intracranial masses or hemorrhage. Peterson-white matter interface is normal. Skull and face: Right-sided craniotomy changes. Calvarium and visualized facial bones are intact, without suspicious lesions. Sinuses: Visualized sinuses and mastoids are clear. IMPRESSION: Postsurgical changes from right-sided craniotomy. Small extra-axial fluid deep to the craniotomy, likely postsurgical in etiology. No mass effect or midline shift. Otherwise, no acute intracranial abnormalities. Dictated by: Henrique Mondragon M.D. on 11/18/2023 at 10:27 Approved by: Henrique Mondragon M.D. on 11/18/2023 at 10:29
[2023-11-18 10:07] LABS: Prothrombin Time 11.1 SECONDS (9.4-12.5)
[2023-11-18 10:08] LABS: Add Manual Diff / Slide Review NO; Basophils Absolute Auto 0 /uL (0-100); Basophils Percent Auto 0.4 % (0-2); Eosinophils Absolute Auto 100 /uL (0-450); Eosinophils Percent Auto 0.7 % (2-4); Hematocrit 40.3 % (36-46); Hemoglobin 13.6 g/dL (12.0-16.0); Lymphocytes Absolute Auto 2800 /uL (1100-4500); Lymphocytes Percent Auto 28.7 % (25-40); Mean Corpuscular HGB Conc 33.8 % (30-36); Mean Corpuscular Hemoglobin 29.7 PG (26-34); Mean Corpuscular Volume 87.8 fL (80-100); Monocytes Absolute Auto 800 /uL (0-900); Neutrophils Absolute Auto 6000 /uL (1500-7000); Neutrophils Percent Auto 62.2 % (50-75); Platelet Count 393 X10^3/uL (150-400); Red Blood Cell Count 4.58 X10^6/uL (4.0-5.2); Red Cell Distribution Width 14.3 % (11.6-14.8); White Blood Cell Count 9.6 X10^3/uL (4.5-11.0)
[2023-11-18 10:12] LABS: Lactate (Lactic Acid) 0.9 mmol/L (0.7-2.1)
[2023-11-18 10:13] LABS: Alanine Aminotransferase 18 IU/L (<35); Albumin 4.5 g/dL (3.5-5.0); Albumin Globulin Ratio 1.5 (1.0-2.8); Alkaline Phosphatase 96 U/L (38-126); Aspartate Aminotransferase 22 IU/L (14-36); Bilirubin Total 0.6 mg/dL (0.2-1.3); Blood Urea Nitrogen 17 mg/dL (7-17); Calcium 9.2 mg/dL (8.4-10.2); Carbon Dioxide 29 mmol/L (22-32); Chloride 102 mmol/L (98-107); Estimated Glomerular Filt Rate > 60 mL/min (>60); Globulin 3.1 g/dL (1.7-4.1); Glucose 99 mg/dL (70-100); HEMOLYSIS < 15 (0-50); Potassium 3.7 mmol/L (3.4-5.1); Sodium 137 mmol/L (137-145); Total Protein 7.6 g/dL (6.3-8.2)
[2023-11-18] MEDS: LORazepam 2 MG/ML INJ IV (10:33)
[2023-11-18 12:15] LABS: Add Manual Diff / Slide Review NO; Basophils Absolute Auto 0 /uL (0-100); Basophils Percent Auto 0.4 % (0-2); Eosinophils Absolute Auto 0 /uL (0-450); Eosinophils Percent Auto 0.2 % (2-4); Hematocrit 39.1 % (36-46); Hemoglobin 13.3 g/dL (12.0-16.0); Lymphocytes Absolute Auto 1200 /uL (1100-4500); Lymphocytes Percent Auto 12.1 % (25-40); Mean Corpuscular Hemoglobin 29.9 PG (26-34); Mean Corpuscular Volume 88.1 fL (80-100); Monocytes Absolute Auto 400 /uL (0-900); Monocytes Percent Auto 4.3 % (3-14); Neutrophils Absolute Auto 8500 /uL (1500-7000); Platelet Count 303 X10^3/uL (150-400); Red Blood Cell Count 4.44 X10^6/uL (4.0-5.2); Red Cell Distribution Width 14.3 % (11.6-14.8); White Blood Cell Count 10.3 X10^3/uL (4.5-11.0)
[2023-11-18 12:31] LABS: Alanine Aminotransferase 19 IU/L (<35); Albumin 4.3 g/dL (3.5-5.0); Albumin Globulin Ratio 1.4 (1.0-2.8); Alkaline Phosphatase 73 U/L (38-126); Aspartate Aminotransferase 31 IU/L (14-36); BUN Creatinine Ratio 23.5 (6-22); Bilirubin Total 0.8 mg/dL (0.2-1.3); Blood Urea Nitrogen 16 mg/dL (7-17); Calcium 8.9 mg/dL (8.4-10.2); Carbon Dioxide 30 mmol/L (22-32); Chloride 105 mmol/L (98-107); Estimated Glomerular Filt Rate > 60 mL/min (>60); Globulin 3.1 g/dL (1.7-4.1); Glucose 108 mg/dL (70-100); Sodium 138 mmol/L (137-145); Total Protein 7.4 g/dL (6.3-8.2)
[2023-11-18 12:32] LABS: HEMOLYSIS 143 (0-50); Potassium 4.4 mmol/L (3.4-5.1)
== END 2023-11-18 14:09 | disposition home or self-care (01) ==
PROVIDERS: Emergency Provider Emergency Medicine; Family Provider Family Medicine; PCP Family Medicine
DX: R56.9 Unspecified convulsions (principal); Z85.841 Personal history of malignant neoplasm of brain; Z98.890 Other specified postprocedural states
CPT/HCPCS: 70450; 80053; 83605; 85025; 85610; 86850; 86900; 86901; 96365; 96375; 99283; 99285; J1953; J2060

== ENCOUNTER → 2024-03-09 12:17 | Outpatient (CLI) | payer OTHER, MEDICAID, SELFPAY ==
[2024-03-09 12:49] LABS: Add Manual Diff / Slide Review NO; Basophils Absolute Auto 0 /uL (0-100); Basophils Percent Auto 0.8 % (0-2); Eosinophils Absolute Auto 100 /uL (0-450); Eosinophils Percent Auto 1.8 % (2-4); Hematocrit 33.7 % (36-46); Lymphocytes Absolute Auto 800 /uL (1100-4500); Lymphocytes Percent Auto 24.2 % (25-40); Mean Corpuscular HGB Conc 35.5 % (30-36); Mean Corpuscular Hemoglobin 30.7 PG (26-34); Mean Corpuscular Volume 86.4 fL (80-100); Monocytes Absolute Auto 300 /uL (0-900); Monocytes Percent Auto 10.5 % (3-14); Neutrophils Absolute Auto 2100 /uL (1500-7000); Neutrophils Percent Auto 62.7 % (50-75); Platelet Count 226 X10^3/uL (150-400); White Blood Cell Count 3.3 X10^3/uL (4.5-11.0)
[2024-03-09 15:28] LABS: Alanine Aminotransferase 24 IU/L (<35); Albumin 4.2 g/dL (3.5-5.0); Albumin Globulin Ratio 1.6 (1.0-2.8); Alkaline Phosphatase 85 U/L (38-126); Aspartate Aminotransferase 31 IU/L (14-36); BUN Creatinine Ratio 22.3 (6-22); Bilirubin Total 0.4 mg/dL (0.2-1.3); Blood Urea Nitrogen 21 mg/dL (7-17); Calcium 9.6 mg/dL (8.4-10.2); Carbon Dioxide 29 mmol/L (22-32); Chloride 101 mmol/L (98-107); Estimated Glomerular Filt Rate > 60 mL/min (>60); Globulin 2.7 g/dL (1.7-4.1); Glucose 105 mg/dL (70-100); HEMOLYSIS < 15 (0-50); Potassium 4.9 mmol/L (3.4-5.1); Sodium 134 mmol/L (137-145); Total Protein 6.9 g/dL (6.3-8.2)
== END ==
PROVIDERS: Family Provider Family Medicine; PCP Family Medicine; Referring Provider Internal Medicine; Visit Provider Internal Medicine
DX: C71.9 Malignant neoplasm of brain, unspecified (principal)
CPT/HCPCS: 36415; 80053; 85025

== ENCOUNTER → 2024-03-17 12:55 | Outpatient (CLI) | payer OTHER, MEDICAID, SELFPAY ==
[2024-03-17 14:33] LABS: Add Manual Diff / Slide Review NO; Basophils Absolute Auto 0 /uL (0-100); Basophils Percent Auto 0.1 % (0-2); Eosinophils Absolute Auto 0 /uL (0-450); Eosinophils Percent Auto 0.8 % (2-4); Hematocrit 35.6 % (36-46); Hemoglobin 12.4 g/dL (12.0-16.0); Lymphocytes Absolute Auto 500 /uL (1100-4500); Lymphocytes Percent Auto 15.8 % (25-40); Mean Corpuscular HGB Conc 34.8 % (30-36); Mean Corpuscular Hemoglobin 30.5 PG (26-34); Mean Corpuscular Volume 87.6 fL (80-100); Monocytes Absolute Auto 400 /uL (0-900); Monocytes Percent Auto 12.3 % (3-14); Neutrophils Absolute Auto 2300 /uL (1500-7000); Platelet Count 265 X10^3/uL (150-400); Red Blood Cell Count 4.07 X10^6/uL (4.0-5.2); Red Cell Distribution Width 15.6 % (11.6-14.8); White Blood Cell Count 3.2 X10^3/uL (4.5-11.0)
[2024-03-17 15:18] LABS: Alanine Aminotransferase 29 IU/L (<35); Albumin 4.3 g/dL (3.5-5.0); Albumin Globulin Ratio 1.5 (1.0-2.8); Alkaline Phosphatase 91 U/L (38-126); Aspartate Aminotransferase 27 IU/L (14-36); BUN Creatinine Ratio 21.5 (6-22); Bilirubin Total 0.3 mg/dL (0.2-1.3); Blood Urea Nitrogen 17 mg/dL (7-17); Calcium 9.6 mg/dL (8.4-10.2); Carbon Dioxide 28 mmol/L (22-32); Chloride 101 mmol/L (98-107); Estimated Glomerular Filt Rate > 60 mL/min (>60); Globulin 2.9 g/dL (1.7-4.1); Glucose 125 mg/dL (70-100); HEMOLYSIS < 15 (0-50); Potassium 4.4 mmol/L (3.4-5.1); Sodium 136 mmol/L (137-145); Total Protein 7.2 g/dL (6.3-8.2)
== END ==
LOC: LAB 12:58
PROVIDERS: Family Provider Family Medicine; PCP Family Medicine; Referring Provider Internal Medicine; Visit Provider Internal Medicine
DX: C77.9 Secondary and unspecified malignant neoplasm of lymph node, unspecified (principal)
CPT/HCPCS: 36415; 80053; 85025

== ENCOUNTER → 2024-03-24 13:22 | Outpatient (CLI) | payer OTHER, MEDICAID, SELFPAY ==
[2024-03-24 14:26] LABS: Add Manual Diff / Slide Review NO; Basophils Absolute Auto 0 /uL (0-100); Basophils Percent Auto 0.2 % (0-2); Eosinophils Absolute Auto 0 /uL (0-450); Eosinophils Percent Auto 0.9 % (2-4); Hematocrit 33.4 % (36-46); Hemoglobin 11.8 g/dL (12.0-16.0); Lymphocytes Absolute Auto 600 /uL (1100-4500); Mean Corpuscular HGB Conc 35.5 % (30-36); Mean Corpuscular Volume 87.3 fL (80-100); Monocytes Absolute Auto 400 /uL (0-900); Monocytes Percent Auto 10.4 % (3-14); Neutrophils Absolute Auto 2400 /uL (1500-7000); Neutrophils Percent Auto 70.5 % (50-75); Platelet Count 199 X10^3/uL (150-400); Red Blood Cell Count 3.82 X10^6/uL (4.0-5.2); Red Cell Distribution Width 15.8 % (11.6-14.8); White Blood Cell Count 3.4 X10^3/uL (4.5-11.0)
[2024-03-24 14:37] LABS: Alanine Aminotransferase 18 IU/L (<35); Albumin 4.2 g/dL (3.5-5.0); Albumin Globulin Ratio 1.6 (1.0-2.8); Alkaline Phosphatase 76 U/L (38-126); Aspartate Aminotransferase 23 IU/L (14-36); BUN Creatinine Ratio 26.3 (6-22); Bilirubin Total 0.3 mg/dL (0.2-1.3); Blood Urea Nitrogen 21 mg/dL (7-17); Calcium 9.7 mg/dL (8.4-10.2); Carbon Dioxide 27 mmol/L (22-32); Chloride 103 mmol/L (98-107); Estimated Glomerular Filt Rate > 60 mL/min (>60); Globulin 2.7 g/dL (1.7-4.1); Glucose 96 mg/dL (70-100); HEMOLYSIS < 15 (0-50); Potassium 4.5 mmol/L (3.4-5.1); Sodium 137 mmol/L (137-145); Total Protein 6.9 g/dL (6.3-8.2)
== END ==
LOC: LAB 13:26
PROVIDERS: Family Provider Family Medicine; PCP Family Medicine; Referring Provider Internal Medicine; Visit Provider Internal Medicine
DX: C71.9 Malignant neoplasm of brain, unspecified (principal)
CPT/HCPCS: 36415; 80053; 85025

== ENCOUNTER → 2024-04-07 13:05 | Outpatient (CLI) | payer OTHER, MEDICAID, SELFPAY ==
[2024-04-07 14:34] LABS: Add Manual Diff / Slide Review NO; Basophils Absolute Auto 0 /uL (0-100); Basophils Percent Auto 0.3 % (0-2); Eosinophils Absolute Auto 100 /uL (0-450); Hematocrit 34.8 % (36-46); Hemoglobin 12.2 g/dL (12.0-16.0); Lymphocytes Absolute Auto 800 /uL (1100-4500); Lymphocytes Percent Auto 13.8 % (25-40); Mean Corpuscular HGB Conc 35.1 % (30-36); Mean Corpuscular Hemoglobin 30.9 PG (26-34); Mean Corpuscular Volume 88.1 fL (80-100); Monocytes Absolute Auto 400 /uL (0-900); Monocytes Percent Auto 7.1 % (3-14); Neutrophils Absolute Auto 4400 /uL (1500-7000); Neutrophils Percent Auto 77.8 % (50-75); Platelet Count 252 X10^3/uL (150-400); Red Blood Cell Count 3.95 X10^6/uL (4.0-5.2); Red Cell Distribution Width 16.2 % (11.6-14.8); White Blood Cell Count 5.6 X10^3/uL (4.5-11.0)
[2024-04-07 14:57] LABS: Alanine Aminotransferase 13 IU/L (<35); Albumin 4.6 g/dL (3.5-5.0); Albumin Globulin Ratio 1.7 (1.0-2.8); Alkaline Phosphatase 86 U/L (38-126); Aspartate Aminotransferase 24 IU/L (14-36); BUN Creatinine Ratio 22.1 (6-22); Bilirubin Total 0.4 mg/dL (0.2-1.3); Blood Urea Nitrogen 19 mg/dL (7-17); Calcium 9.8 mg/dL (8.4-10.2); Carbon Dioxide 25 mmol/L (22-32); Chloride 104 mmol/L (98-107); Estimated Glomerular Filt Rate > 60 mL/min (>60); Globulin 2.7 g/dL (1.7-4.1); Glucose 120 mg/dL (70-100); HEMOLYSIS < 15 (0-50); Sodium 139 mmol/L (137-145); Total Protein 7.3 g/dL (6.3-8.2)
== END ==
LOC: LAB 13:07
PROVIDERS: Family Provider Family Medicine; PCP Family Medicine; Referring Provider Internal Medicine; Visit Provider Internal Medicine
DX: C71.9 Malignant neoplasm of brain, unspecified (principal)
CPT/HCPCS: 36415; 80053; 85025

== ENCOUNTER → 2024-04-21 13:21 | Outpatient (CLI) | payer OTHER, MEDICAID, SELFPAY ==
[2024-04-21 14:37] LABS: Add Manual Diff / Slide Review NO; Basophils Absolute Auto 0 /uL (0-100); Basophils Percent Auto 0.4 % (0-2); Eosinophils Absolute Auto 0 /uL (0-450); Eosinophils Percent Auto 1.5 % (2-4); Hematocrit 36.8 % (36-46); Hemoglobin 12.8 g/dL (12.0-16.0); Lymphocytes Absolute Auto 300 /uL (1100-4500); Lymphocytes Percent Auto 9.5 % (25-40); Mean Corpuscular HGB Conc 34.8 % (30-36); Mean Corpuscular Hemoglobin 30.7 PG (26-34); Mean Corpuscular Volume 88.2 fL (80-100); Monocytes Absolute Auto 300 /uL (0-900); Monocytes Percent Auto 10.5 % (3-14); Neutrophils Absolute Auto 2400 /uL (1500-7000); Neutrophils Percent Auto 78.1 % (50-75); Platelet Count 231 X10^3/uL (150-400); Red Blood Cell Count 4.17 X10^6/uL (4.0-5.2); Red Cell Distribution Width 15.7 % (11.6-14.8)
[2024-04-21 15:01] LABS: Alanine Aminotransferase 23 IU/L (<35); Albumin 4.5 g/dL (3.5-5.0); Albumin Globulin Ratio 1.9 (1.0-2.8); Alkaline Phosphatase 78 U/L (38-126); Aspartate Aminotransferase 32 IU/L (14-36); BUN Creatinine Ratio 16.7 (6-22); Bilirubin Total 0.4 mg/dL (0.2-1.3); Blood Urea Nitrogen 17 mg/dL (7-17); Calcium 9.7 mg/dL (8.4-10.2); Carbon Dioxide 27 mmol/L (22-32); Chloride 102 mmol/L (98-107); Estimated Glomerular Filt Rate > 60 mL/min (>60); Globulin 2.4 g/dL (1.7-4.1); Glucose 109 mg/dL (70-100); HEMOLYSIS < 15 (0-50); Potassium 4.5 mmol/L (3.4-5.1); Sodium 137 mmol/L (137-145); Total Protein 6.9 g/dL (6.3-8.2)
== END ==
PROVIDERS: Family Provider Family Medicine; PCP Family Medicine; Referring Provider Internal Medicine; Visit Provider Internal Medicine
DX: C71.9 Malignant neoplasm of brain, unspecified (principal)
CPT/HCPCS: 36415; 80053; 85025

== ENCOUNTER → 2024-04-28 12:55 | Outpatient (CLI) | payer OTHER, MEDICAID, SELFPAY ==
[2024-04-28 13:40] LABS: Add Manual Diff / Slide Review NO; Basophils Absolute Auto 0 /uL (0-100); Basophils Percent Auto 0.2 % (0-2); Eosinophils Absolute Auto 0 /uL (0-450); Eosinophils Percent Auto 0.3 % (2-4); Hematocrit 34.9 % (36-46); Hemoglobin 12.4 g/dL (12.0-16.0); Lymphocytes Absolute Auto 800 /uL (1100-4500); Lymphocytes Percent Auto 24.6 % (25-40); Mean Corpuscular HGB Conc 35.6 % (30-36); Mean Corpuscular Hemoglobin 31.6 PG (26-34); Mean Corpuscular Volume 88.5 fL (80-100); Monocytes Absolute Auto 400 /uL (0-900); Monocytes Percent Auto 13.5 % (3-14); Neutrophils Absolute Auto 1900 /uL (1500-7000); Neutrophils Percent Auto 61.4 % (50-75); Platelet Count 253 X10^3/uL (150-400); Red Blood Cell Count 3.94 X10^6/uL (4.0-5.2); White Blood Cell Count 3.2 X10^3/uL (4.5-11.0)
[2024-04-28 14:11] LABS: Alanine Aminotransferase 30 IU/L (<35); Albumin 4.5 g/dL (3.5-5.0); Albumin Globulin Ratio 1.7 (1.0-2.8); Alkaline Phosphatase 77 U/L (38-126); Aspartate Aminotransferase 33 IU/L (14-36); BUN Creatinine Ratio 21.4 (6-22); Bilirubin Total 0.4 mg/dL (0.2-1.3); Blood Urea Nitrogen 18 mg/dL (7-17); Calcium 9.4 mg/dL (8.4-10.2); Carbon Dioxide 24 mmol/L (22-32); Chloride 105 mmol/L (98-107); Estimated Glomerular Filt Rate > 60 mL/min (>60); Globulin 2.7 g/dL (1.7-4.1); Glucose 101 mg/dL (70-100); HEMOLYSIS < 15 (0-50); Potassium 4.3 mmol/L (3.4-5.1); Sodium 138 mmol/L (137-145); Total Protein 7.2 g/dL (6.3-8.2)
== END ==
PROVIDERS: Family Provider Family Medicine; PCP Family Medicine; Referring Provider Internal Medicine; Visit Provider Internal Medicine
DX: C71.9 Malignant neoplasm of brain, unspecified (principal)
CPT/HCPCS: 36415; 80053; 85025

== ENCOUNTER 2024-05-04 17:17 | Emergency (ER) | payer OTHER, MEDICAID, SELFPAY ==
[2024-05-04 17:19] VITALS: BP 155/74; PULSE 90; RESP 18; TEMP 36.5; O2SAT 100; BMI 20.9
[2024-05-04 19:20] VITALS: BP 138/78; PULSE 78; O2SAT 97
== END 2024-05-04 19:35 | disposition left against medical advice (07) ==
PROVIDERS: Emergency Provider Student in an Organized Health Care Education/Training Program; Family Provider Family Medicine; PCP Family Medicine
CPT/HCPCS: 99281

== ENCOUNTER → 2024-05-06 13:12 | Outpatient (CLI) | payer OTHER, MEDICAID, SELFPAY ==
[2024-05-06 13:52] LABS: Add Manual Diff / Slide Review NO; Basophils Absolute Auto 0 /uL (0-100); Basophils Percent Auto 0.2 % (0-2); Eosinophils Absolute Auto 0 /uL (0-450); Eosinophils Percent Auto 0.2 % (2-4); Hematocrit 35.6 % (36-46); Hemoglobin 12.5 g/dL (12.0-16.0); Lymphocytes Absolute Auto 900 /uL (1100-4500); Lymphocytes Percent Auto 22.4 % (25-40); Mean Corpuscular Hemoglobin 31.4 PG (26-34); Mean Corpuscular Volume 89.7 fL (80-100); Monocytes Absolute Auto 500 /uL (0-900); Monocytes Percent Auto 12.8 % (3-14); Neutrophils Absolute Auto 2400 /uL (1500-7000); Neutrophils Percent Auto 64.4 % (50-75); Platelet Count 163 X10^3/uL (150-400); Red Blood Cell Count 3.96 X10^6/uL (4.0-5.2); Red Cell Distribution Width 16.4 % (11.6-14.8); White Blood Cell Count 3.8 X10^3/uL (4.5-11.0)
[2024-05-06 14:36] LABS: Alanine Aminotransferase 20 IU/L (<35); Albumin 4.5 g/dL (3.5-5.0); Albumin Globulin Ratio 1.8 (1.0-2.8); Alkaline Phosphatase 70 U/L (38-126); Aspartate Aminotransferase 24 IU/L (14-36); BUN Creatinine Ratio 17.4 (6-22); Bilirubin Total 0.4 mg/dL (0.2-1.3); Blood Urea Nitrogen 15 mg/dL (7-17); Calcium 9.9 mg/dL (8.4-10.2); Carbon Dioxide 27 mmol/L (22-32); Chloride 104 mmol/L (98-107); Estimated Glomerular Filt Rate > 60 mL/min (>60); Globulin 2.5 g/dL (1.7-4.1); Glucose 105 mg/dL (70-100); HEMOLYSIS < 15 (0-50); Potassium 4.4 mmol/L (3.4-5.1); Sodium 138 mmol/L (137-145)
== END ==
LOC: LAB 13:14
PROVIDERS: Family Provider Family Medicine; PCP Family Medicine; Referring Provider Internal Medicine; Visit Provider Internal Medicine
DX: C71.9 Malignant neoplasm of brain, unspecified (principal)
CPT/HCPCS: 36415; 80053; 85025

== ENCOUNTER → 2024-05-12 13:26 | Outpatient (CLI) | payer OTHER, MEDICAID, SELFPAY ==
[2024-05-12 15:29] LABS: Add Manual Diff / Slide Review NO; Basophils Absolute Auto 0 /uL (0-100); Basophils Percent Auto 0.3 % (0-2); Eosinophils Absolute Auto 0 /uL (0-450); Eosinophils Percent Auto 0.4 % (2-4); Hematocrit 36.3 % (36-46); Hemoglobin 12.7 g/dL (12.0-16.0); Lymphocytes Absolute Auto 700 /uL (1100-4500); Lymphocytes Percent Auto 13.8 % (25-40); Mean Corpuscular Hemoglobin 31.7 PG (26-34); Mean Corpuscular Volume 90.6 fL (80-100); Monocytes Absolute Auto 400 /uL (0-900); Monocytes Percent Auto 7.8 % (3-14); Neutrophils Absolute Auto 3700 /uL (1500-7000); Neutrophils Percent Auto 77.7 % (50-75); Platelet Count 160 X10^3/uL (150-400); Red Blood Cell Count 4.01 X10^6/uL (4.0-5.2); Red Cell Distribution Width 16.3 % (11.6-14.8); White Blood Cell Count 4.8 X10^3/uL (4.5-11.0)
[2024-05-12 16:14] LABS: Alanine Aminotransferase 15 IU/L (<35); Albumin 4.5 g/dL (3.5-5.0); Albumin Globulin Ratio 1.8 (1.0-2.8); Alkaline Phosphatase 77 U/L (38-126); Aspartate Aminotransferase 23 IU/L (14-36); BUN Creatinine Ratio 26.2 (6-22); Bilirubin Total 0.5 mg/dL (0.2-1.3); Blood Urea Nitrogen 22 mg/dL (7-17); Calcium 9.7 mg/dL (8.4-10.2); Carbon Dioxide 25 mmol/L (22-32); Chloride 105 mmol/L (98-107); Estimated Glomerular Filt Rate > 60 mL/min (>60); Globulin 2.5 g/dL (1.7-4.1); Glucose 128 mg/dL (70-100); HEMOLYSIS < 15 (0-50); Potassium 4.1 mmol/L (3.4-5.1); Sodium 140 mmol/L (137-145)
== END ==
PROVIDERS: PCP Family Medicine; Referring Provider Internal Medicine; Visit Provider Internal Medicine
DX: C71.9 Malignant neoplasm of brain, unspecified (principal)
CPT/HCPCS: 36415; 80053; 85025

== ENCOUNTER → 2024-05-19 13:32 | Outpatient (CLI) | payer OTHER, MEDICAID, SELFPAY ==
[2024-05-19 14:10] LABS: Add Manual Diff / Slide Review NO; Basophils Absolute Auto 0 /uL (0-100); Basophils Percent Auto 0.4 % (0-2); Eosinophils Absolute Auto 0 /uL (0-450); Eosinophils Percent Auto 0.4 % (2-4); Hematocrit 35.4 % (36-46); Hemoglobin 12.5 g/dL (12.0-16.0); Lymphocytes Absolute Auto 600 /uL (1100-4500); Mean Corpuscular HGB Conc 35.3 % (30-36); Mean Corpuscular Hemoglobin 31.8 PG (26-34); Monocytes Absolute Auto 300 /uL (0-900); Monocytes Percent Auto 8.2 % (3-14); Neutrophils Absolute Auto 2800 /uL (1500-7000); Platelet Count 205 X10^3/uL (150-400); Red Blood Cell Count 3.93 X10^6/uL (4.0-5.2); Red Cell Distribution Width 16.4 % (11.6-14.8); White Blood Cell Count 3.7 X10^3/uL (4.5-11.0)
[2024-05-19 15:13] LABS: Alanine Aminotransferase 14 IU/L (<35); Albumin 4.4 g/dL (3.5-5.0); Albumin Globulin Ratio 1.8 (1.0-2.8); Alkaline Phosphatase 82 U/L (38-126); Aspartate Aminotransferase 23 IU/L (14-36); BUN Creatinine Ratio 17.6 (6-22); Bilirubin Total 0.4 mg/dL (0.2-1.3); Blood Urea Nitrogen 16 mg/dL (7-17); Calcium 9.6 mg/dL (8.4-10.2); Carbon Dioxide 29 mmol/L (22-32); Chloride 104 mmol/L (98-107); Estimated Glomerular Filt Rate > 60 mL/min (>60); Globulin 2.5 g/dL (1.7-4.1); Glucose 99 mg/dL (70-100); HEMOLYSIS < 15 (0-50); Potassium 3.9 mmol/L (3.4-5.1); Sodium 140 mmol/L (137-145); Total Protein 6.9 g/dL (6.3-8.2)
== END ==
PROVIDERS: PCP Family Medicine; Referring Provider Internal Medicine; Visit Provider Internal Medicine
DX: C71.9 Malignant neoplasm of brain, unspecified (principal)
CPT/HCPCS: 36415; 80053; 85025

== ENCOUNTER → 2024-06-02 12:43 | Outpatient (CLI) | payer OTHER, MEDICAID, SELFPAY ==
[2024-06-02 13:41] LABS: Add Manual Diff / Slide Review NO; Basophils Absolute Auto 0 /uL (0-100); Basophils Percent Auto 0.2 % (0-2); Eosinophils Absolute Auto 0 /uL (0-450); Eosinophils Percent Auto 1.4 % (2-4); Hematocrit 35.4 % (36-46); Hemoglobin 12.4 g/dL (12.0-16.0); Lymphocytes Absolute Auto 300 /uL (1100-4500); Lymphocytes Percent Auto 11.4 % (25-40); Mean Corpuscular HGB Conc 35.1 % (30-36); Mean Corpuscular Hemoglobin 32.6 PG (26-34); Mean Corpuscular Volume 92.8 fL (80-100); Monocytes Absolute Auto 300 /uL (0-900); Monocytes Percent Auto 11.4 % (3-14); Neutrophils Absolute Auto 2200 /uL (1500-7000); Neutrophils Percent Auto 75.6 % (50-75); Platelet Count 219 X10^3/uL (150-400); Red Blood Cell Count 3.82 X10^6/uL (4.0-5.2); Red Cell Distribution Width 15.3 % (11.6-14.8); White Blood Cell Count 2.9 X10^3/uL (4.5-11.0)
[2024-06-02 14:01] LABS: Alanine Aminotransferase 26 IU/L (<35); Albumin 4.4 g/dL (3.5-5.0); Albumin Globulin Ratio 1.5 (1.0-2.8); Alkaline Phosphatase 70 U/L (38-126); Aspartate Aminotransferase 35 IU/L (14-36); BUN Creatinine Ratio 19.6 (6-22); Bilirubin Total 0.5 mg/dL (0.2-1.3); Blood Urea Nitrogen 18 mg/dL (7-17); Calcium 9.8 mg/dL (8.4-10.2); Carbon Dioxide 27 mmol/L (22-32); Chloride 101 mmol/L (98-107); Estimated Glomerular Filt Rate > 60 mL/min (>60); Globulin 2.9 g/dL (1.7-4.1); Glucose 108 mg/dL (70-100); HEMOLYSIS < 15 (0-50); Potassium 4.2 mmol/L (3.4-5.1); Sodium 135 mmol/L (137-145); Total Protein 7.3 g/dL (6.3-8.2)
== END ==
PROVIDERS: PCP Family Medicine; Referring Provider Internal Medicine; Visit Provider Internal Medicine
DX: C77.9 Secondary and unspecified malignant neoplasm of lymph node, unspecified (principal)
CPT/HCPCS: 36415; 80053; 85025

== ENCOUNTER → 2024-06-09 14:32 | Outpatient (CLI) | payer OTHER, SELFPAY ==
[2024-06-09 15:27] LABS: Add Manual Diff / Slide Review NO; Basophils Absolute Auto 0 /uL (0-100); Basophils Percent Auto 0.1 % (0-2); Eosinophils Absolute Auto 0 /uL (0-450); Eosinophils Percent Auto 0.5 % (2-4); Hemoglobin 12.3 g/dL (12.0-16.0); Lymphocytes Absolute Auto 300 /uL (1100-4500); Lymphocytes Percent Auto 11.4 % (25-40); Mean Corpuscular HGB Conc 35.3 % (30-36); Mean Corpuscular Volume 93.6 fL (80-100); Monocytes Absolute Auto 400 /uL (0-900); Monocytes Percent Auto 13.2 % (3-14); Neutrophils Absolute Auto 2100 /uL (1500-7000); Neutrophils Percent Auto 74.8 % (50-75); Platelet Count 246 X10^3/uL (150-400); Red Blood Cell Count 3.73 X10^6/uL (4.0-5.2); Red Cell Distribution Width 15.5 % (11.6-14.8); White Blood Cell Count 2.8 X10^3/uL (4.5-11.0)
[2024-06-09 16:06] LABS: Alanine Aminotransferase 27 IU/L (<35); Albumin 4.7 g/dL (3.5-5.0); Albumin Globulin Ratio 1.7 (1.0-2.8); Alkaline Phosphatase 74 U/L (38-126); Aspartate Aminotransferase 29 IU/L (14-36); BUN Creatinine Ratio 22.2 (6-22); Bilirubin Total 0.4 mg/dL (0.2-1.3); Blood Urea Nitrogen 18 mg/dL (7-17); Calcium 9.9 mg/dL (8.4-10.2); Carbon Dioxide 25 mmol/L (22-32); Chloride 107 mmol/L (98-107); Estimated Glomerular Filt Rate > 60 mL/min (>60); Globulin 2.7 g/dL (1.7-4.1); Glucose 107 mg/dL (70-100); HEMOLYSIS < 15 (0-50); Potassium 4.2 mmol/L (3.4-5.1); Sodium 142 mmol/L (137-145); Total Protein 7.4 g/dL (6.3-8.2)
== END ==
PROVIDERS: PCP Family Medicine; Referring Provider Internal Medicine; Visit Provider Internal Medicine
DX: C71.9 Malignant neoplasm of brain, unspecified (principal)
CPT/HCPCS: 36415; 80053; 85025

== ENCOUNTER → 2024-06-16 11:23 | Outpatient (CLI) | payer OTHER, SELFPAY ==
[2024-06-16 12:01] LABS: Add Manual Diff / Slide Review NO; Basophils Absolute Auto 0 /uL (0-100); Basophils Percent Auto 0.3 % (0-2); Eosinophils Absolute Auto 0 /uL (0-450); Eosinophils Percent Auto 0.6 % (2-4); Hematocrit 35.4 % (36-46); Hemoglobin 12.2 g/dL (12.0-16.0); Lymphocytes Absolute Auto 300 /uL (1100-4500); Lymphocytes Percent Auto 13.1 % (25-40); Mean Corpuscular HGB Conc 34.5 % (30-36); Mean Corpuscular Hemoglobin 32.8 PG (26-34); Monocytes Absolute Auto 400 /uL (0-900); Monocytes Percent Auto 14.1 % (3-14); Neutrophils Absolute Auto 1900 /uL (1500-7000); Neutrophils Percent Auto 71.9 % (50-75); Platelet Count 211 X10^3/uL (150-400); Red Blood Cell Count 3.72 X10^6/uL (4.0-5.2); Red Cell Distribution Width 15.5 % (11.6-14.8); White Blood Cell Count 2.6 X10^3/uL (4.5-11.0)
[2024-06-16 12:47] LABS: Alanine Aminotransferase 19 IU/L (<35); Albumin 4.5 g/dL (3.5-5.0); Albumin Globulin Ratio 1.9 (1.0-2.8); Alkaline Phosphatase 76 U/L (38-126); Aspartate Aminotransferase 26 IU/L (14-36); BUN Creatinine Ratio 17.6 (6-22); Bilirubin Total 0.5 mg/dL (0.2-1.3); Blood Urea Nitrogen 16 mg/dL (7-17); Calcium 9.7 mg/dL (8.4-10.2); Carbon Dioxide 24 mmol/L (22-32); Chloride 105 mmol/L (98-107); Estimated Glomerular Filt Rate > 60 mL/min (>60); Globulin 2.4 g/dL (1.7-4.1); Glucose 106 mg/dL (70-100); HEMOLYSIS < 15 (0-50); Potassium 4.4 mmol/L (3.4-5.1); Sodium 139 mmol/L (137-145); Total Protein 6.9 g/dL (6.3-8.2)
== END ==
LOC: LAB 11:25
PROVIDERS: PCP Family Medicine; Referring Provider Internal Medicine; Visit Provider Internal Medicine
DX: C71.9 Malignant neoplasm of brain, unspecified (principal)
CPT/HCPCS: 36415; 80053; 85025

== ENCOUNTER → 2024-06-23 13:03 | Outpatient (CLI) | payer OTHER, SELFPAY ==
[2024-06-23 14:05] LABS: Add Manual Diff / Slide Review NO; Basophils Absolute Auto 0 /uL (0-100); Basophils Percent Auto 0.5 % (0-2); Eosinophils Absolute Auto 0 /uL (0-450); Eosinophils Percent Auto 0.6 % (2-4); Hemoglobin 11.7 g/dL (12.0-16.0); Lymphocytes Absolute Auto 400 /uL (1100-4500); Lymphocytes Percent Auto 10.6 % (25-40); Mean Corpuscular HGB Conc 35.4 % (30-36); Mean Corpuscular Hemoglobin 33.6 PG (26-34); Mean Corpuscular Volume 95.1 fL (80-100); Monocytes Absolute Auto 400 /uL (0-900); Monocytes Percent Auto 12.7 % (3-14); Neutrophils Absolute Auto 2600 /uL (1500-7000); Neutrophils Percent Auto 75.6 % (50-75); Platelet Count 195 X10^3/uL (150-400); Red Blood Cell Count 3.47 X10^6/uL (4.0-5.2); Red Cell Distribution Width 15.2 % (11.6-14.8); White Blood Cell Count 3.4 X10^3/uL (4.5-11.0)
[2024-06-23 14:20] LABS: Alanine Aminotransferase 17 IU/L (<35); Albumin 4.3 g/dL (3.5-5.0); Albumin Globulin Ratio 1.9 (1.0-2.8); Alkaline Phosphatase 72 U/L (38-126); Aspartate Aminotransferase 24 IU/L (14-36); BUN Creatinine Ratio 24.7 (6-22); Bilirubin Total 0.4 mg/dL (0.2-1.3); Blood Urea Nitrogen 20 mg/dL (7-17); Calcium 9.6 mg/dL (8.4-10.2); Carbon Dioxide 26 mmol/L (22-32); Chloride 105 mmol/L (98-107); Estimated Glomerular Filt Rate > 60 mL/min (>60); Globulin 2.3 g/dL (1.7-4.1); Glucose 95 mg/dL (70-100); HEMOLYSIS < 15 (0-50); Potassium 4.6 mmol/L (3.4-5.1); Sodium 138 mmol/L (137-145); Total Protein 6.6 g/dL (6.3-8.2)
== END ==
LOC: LAB 13:05
PROVIDERS: PCP Family Medicine; Referring Provider Internal Medicine; Visit Provider Internal Medicine
DX: C71.9 Malignant neoplasm of brain, unspecified (principal)
CPT/HCPCS: 36415; 80053; 85025

== ENCOUNTER 2024-06-24 12:43 | Emergency (ER) | payer OTHER, SELFPAY ==
[2024-06-24 12:47] VITALS: BP 141/75; PULSE 88; RESP 18; TEMP 37.2; O2SAT 99; BMI 20.9
--- NOTE | 2024-06-24 13:25 | ED.SEIZURE ---
HPI - Seizure General Chief Complaint: Seizure Stated Complaint: Had A Seizure Time Seen by Provider: 06/24/24 13:02 Source: patient Mode of arrival: Wheelchair Limitations: no limitations History of Present Illness HPI Narrative: Patient was a 58-year-old female. A known history of glioblastoma. Has had 2 surgeries. Last several scans have been clear. She was currently undergoing chemotherapy. He was being followed by Marizol johnson. Has had 1 seizure in the past. Is on Keppra. She states that she did do quite a bit of exertion over the past 24 hours. Today she stated that she felt like she had ?electric? go through her body. She reports having a generalized tonic-clonic seizure. Unsure how long the seizure activity lasted. No injuries. Here in the emergency department she states that she was feeling back to normal but is somewhat anxious. Anxiety has been an issue for her and she was not on any anxiety medicine. Related Data Home Medications Medication Instructions Recorded Confirmed calcium carbonate 500 mg PO DAILY 03/18/19 12/10/23 omega 5-uoe-zzd-fish oil 1,000 mg 1 cap PO DAILY 03/18/19 12/10/23 (120 mg-180 mg) capsule cholecalciferol (vitamin D3) 25 1,000 unit DAILY 02/16/20 12/10/23 mcg (1,000 unit) capsule (Vitamin D3) L.acid,gas,bess,rham-B.ani-cran PO 12/10/23 12/10/23 [up4 Probiotics Women's] levetiracetam 250 mg tablet 750 mg PO BID 12/10/23 12/10/23 (Keppra) multivitamin combination no.56 PO 12/10/23 12/10/23 Previous Rx's Medication Instructions Recorded lorazepam 0.5 mg tablet (Ativan) 0.5 mg PO TID PRN anxiety #14 tabs 06/24/24 Allergies Allergy/AdvReac Type Severity Reaction Status Date / Time No Known Drug Allergies Allergy Verified 06/24/24 12:55 Review of Systems Review of Systems ROS Unobtainable: All systems reviewed & are unremarkable except as noted in HPI and below Patient History Medical History Epilepsy Glioblastoma determined by biopsy of brain Well adult Sebaceous cyst Surgical History Status post hysterectomy (12/31/16) Status post partial mastectomy (04/29/15) Family History Father Stroke Mother Hypertension Grandmother Cancer Social History marital status: household members: spouse Smoking Status: Never smoker alcohol intake: current substance use type: does not use Smoking Status: Never smoker Exam Initial Vital Signs Initial Vital Signs: Vital Signs Temperature 99.0 F 06/24/24 12:47 Pulse Rate 88 06/24/24 12:47 Respiratory Rate 18 06/24/24 12:47 Blood Pressure 141/75 H 06/24/24 12:47 Pulse Oximetry 99 06/24/24 12:47 Oxygen Delivery Method Room Air 06/24/24 12:47 Const General: cooperative and No ill appearing Resp Effort & Inspection: normal respiratory effort Auscultation: clear to auscultation bilaterally Cardio Rate: regular rate Rhythm: regular rhythm GI Inspection: normal to inspection Skin General: no rashes or lesions noted Neuro General: patient alert, patient awake and moves all extremities Extrem General: capillary refill normal Course Orders Ordered: ED Orders 06/24/24 13:31 Complete Blood Count AUTO DIFF Stat Comprehensive Metabolic Panel Stat Lipase Stat Discontinued Medications Lorazepam (Lorazepam 2 Mg/Ml Inj) 1 mg IV NOW ONE Stop: 06/24/24 13:23 Last Admin: 06/24/24 13:27 Dose: 1 mg Documented By: SB Lorazepam (Lorazepam 2 Mg/Ml Inj) 1 mg IV NOW ONE Stop: 06/24/24 14:02 Last Admin: 06/24/24 14:10 Dose: 1 mg Documented By: MPO Vital Signs Vital signs: Vital Signs - 8 hr 06/24/24 12:47 Temperature 99.0 F Pulse Rate 88 Respiratory Rate 18 Blood Pressure 141/75 H Pulse Oximetry 99 Oxygen Delivery Method Room Air MDM - Seizure Lab Data 06/24/24 13:31 06/24/24 13:31 Labs: Lab Results 06/24/24 Range/Units 13:31 WBC 3.2 L (4.5-11.0) X10^3/uL RBC 3.69 L (4.0-5.2) X10^6/uL Hgb 12.2 (12.0-16.0) g/dL Hct 34.8 L (36-46) % MCV 94.3 (80-100) fL MCH 33.2 (26-34) PG MCHC 35.2 (30-36) % RDW 15.4 H (11.6-14.8) % Plt Count 189 (150-400) X10^3/uL Neut % (Auto) 78.8 H (50-75) % Lymph % (Auto) 10.7 L (25-40) % [place] % (Auto) 9.9 (3-14) % Eos % (Auto) 0.3 L (2-4) % Baso % (Auto) 0.3 (0-2) % Neut # (Auto) 2500 (6429-1616) /uL Lymph # (Auto) 300 L (9515-9224) /uL [place] # (Auto) 300 (0-900) /uL Eos # (Auto) 0 (0-450) /uL Baso # (Auto) 0 (0-100) /uL Sodium 138 (137-145) mmol/L Potassium 3.9 (3.4-5.1) mmol/L Chloride 106 (98-107) mmol/L Carbon Dioxide 26 (22-32) mmol/L BUN 16 (7-17) mg/dL Creatinine 0.83 (0.52-1.04) mg/dL Estimated GFR > 60 (>60) mL/min BUN/Creatinine Ratio 19.3 (6-22) Glucose 123 H (70-100) mg/dL Calcium 9.6 (8.4-10.2) mg/dL Total Bilirubin 0.4 (0.2-1.3) mg/dL AST 25 (14-36) IU/L ALT 18 (<35) IU/L Alkaline Phosphatase 70 (38-126) U/L Total Protein 7.1 (6.3-8.2) g/dL Albumin 4.3 (3.5-5.0) g/dL Globulin 2.8 (1.7-4.1) g/dL Albumin/Globulin Ratio 1.5 (1.0-2.8) Lipase 117 (23-300) U/L [facility] Narrative Medical decision making narrative: Patient has a known history of a glioblastoma. Had a CT scan done 1 month ago and patient and reports that it was ?clear? she has had a seizure in the past. She did take her Keppra this morning. Had what appears to be a seizure earlier today. She was alert and oriented here in the ER. She was very anxious here in the ER and she does report that she quite a bit of activity over the past 24 hours what she thinks is what triggered the seizure today. Patient was observed. Labs unremarkable. We will hold on a head CT for now as she just had 1 within the past month. The patient and agree with this. Patient did ambulate around the emergency department. Will send home with a prescription for Ativan for the anxiety. She was advised not to drive. Recommended that she contact her neurologist and primary doctor and oncologist for follow-up. They expressed understanding and agreement with the plan. Discharge Plan Departure Patient Disposition: Home Clinical Impression: Seizure Instructions: DI for Seizure Disorder -- Adult Activity Restrictions/Additional Instructions: Continue to take all of your medications as directed. Since he did have a seizure today you are not to drive until you are cleared by your neurologist. Continue all of your antiseizure medication as directed. Contact your primary doctor for a follow-up. Return to the emergency department for new or worsening symptoms. Prescriptions: New lorazepam [Ativan] 0.5 mg tablet 0.5 mg PO TID PRN (Reason: anxiety) Qty: 14 0RF No Action multivitamin combination no.56 PO L.acid,gas,bess,rham-B.ani-cran [up4 Probiotics Women's] PO levetiracetam [Keppra] 250 mg tablet 750 mg PO BID calcium carbonate 500 mg calcium (1,250 mg) tablet 500 mg PO DAILY omega 6-pdi-kue-fish oil 1,000 mg (120 mg-180 mg) capsule 1 cap PO DAILY cholecalciferol (vitamin D3) [Vitamin D3] 25 mcg (1,000 unit) Capsule 1,000 unit DAILY Referrals: Chandler Mark DO [Primary Care Provider] - Stand Alone Forms: Patient Portal/API/Survey
[2024-06-24] MEDS: LORazepam 2 MG/ML INJ 1 MG IV ×2 (13:27→14:10)
--- NOTE | 2024-06-24 13:34 | PC.NURSE ---
Pt states that she feels like she is going to have another seizure. Right lower corner of lip & both hands began to twitch. Pt states that she often gets anxious in hospitals and this feels like it felt this morning. Pt a&ox4. Speaking in full sentences and conscious.
[2024-06-24 13:38] LABS: Add Manual Diff / Slide Review NO; Basophils Absolute Auto 0 /uL (0-100); Basophils Percent Auto 0.3 % (0-2); Eosinophils Absolute Auto 0 /uL (0-450); Eosinophils Percent Auto 0.3 % (2-4); Hematocrit 34.8 % (36-46); Hemoglobin 12.2 g/dL (12.0-16.0); Lymphocytes Absolute Auto 300 /uL (1100-4500); Lymphocytes Percent Auto 10.7 % (25-40); Mean Corpuscular HGB Conc 35.2 % (30-36); Mean Corpuscular Hemoglobin 33.2 PG (26-34); Mean Corpuscular Volume 94.3 fL (80-100); Monocytes Absolute Auto 300 /uL (0-900); Monocytes Percent Auto 9.9 % (3-14); Neutrophils Absolute Auto 2500 /uL (1500-7000); Neutrophils Percent Auto 78.8 % (50-75); Platelet Count 189 X10^3/uL (150-400); Red Blood Cell Count 3.69 X10^6/uL (4.0-5.2); Red Cell Distribution Width 15.4 % (11.6-14.8); White Blood Cell Count 3.2 X10^3/uL (4.5-11.0)
[2024-06-24 13:59] LABS: Alanine Aminotransferase 18 IU/L (<35); Albumin 4.3 g/dL (3.5-5.0); Alkaline Phosphatase 70 U/L (38-126); Aspartate Aminotransferase 25 IU/L (14-36); BUN Creatinine Ratio 19.3 (6-22); Bilirubin Total 0.4 mg/dL (0.2-1.3); Blood Urea Nitrogen 16 mg/dL (7-17); Calcium 9.6 mg/dL (8.4-10.2); Carbon Dioxide 26 mmol/L (22-32); Chloride 106 mmol/L (98-107); Estimated Glomerular Filt Rate > 60 mL/min (>60); Globulin 2.8 g/dL (1.7-4.1); Glucose 123 mg/dL (70-100); HEMOLYSIS < 15 (0-50); Potassium 3.9 mmol/L (3.4-5.1); Sodium 138 mmol/L (137-145); Total Protein 7.1 g/dL (6.3-8.2)
[2024-06-24 14:00] LABS: Albumin Globulin Ratio 1.5 (1.0-2.8); Lipase 117 U/L (23-300)
[2024-06-24 15:25] VITALS: PULSE 82; O2SAT 98
[2024-06-24 15:30] VITALS: PULSE 83; RESP 21; O2SAT 100
[2024-06-24 16:00] VITALS: PULSE 79; RESP 21
--- NOTE | 2024-06-24 16:16 | PC.NURSE ---
RN ambulated pt. Pt stated that she feels like everything is moving in slow motion but also that she feels better. Pt and would like to go home.
[2024-06-24 16:25] VITALS: BP 123/59; PULSE 90; RESP 25
[2024-06-24 16:27] VITALS: BP 123/59; PULSE 67; RESP 20; TEMP 37; O2SAT 100
== END 2024-06-24 16:36 | disposition home or self-care (01) ==
PROVIDERS: Emergency Provider Emergency Medicine; PCP Family Medicine
DX: R56.9 Unspecified convulsions (principal)
CPT/HCPCS: 36415; 80053; 83690; 85025; 96374; 96375; 99284; J2060

== ENCOUNTER → 2024-06-30 12:36 | Outpatient (CLI) | payer OTHER, SELFPAY ==
[2024-06-30 13:02] LABS: Add Manual Diff / Slide Review NO; Basophils Absolute Auto 0 /uL (0-100); Basophils Percent Auto 0.4 % (0-2); Eosinophils Absolute Auto 0 /uL (0-450); Eosinophils Percent Auto 0.4 % (2-4); Hematocrit 36.1 % (36-46); Lymphocytes Absolute Auto 500 /uL (1100-4500); Lymphocytes Percent Auto 11.3 % (25-40); Mean Corpuscular HGB Conc 35.9 % (30-36); Mean Corpuscular Hemoglobin 33.4 PG (26-34); Mean Corpuscular Volume 92.9 fL (80-100); Monocytes Absolute Auto 400 /uL (0-900); Monocytes Percent Auto 9.4 % (3-14); Neutrophils Absolute Auto 3200 /uL (1500-7000); Neutrophils Percent Auto 78.5 % (50-75); Platelet Count 238 X10^3/uL (150-400); Red Blood Cell Count 3.88 X10^6/uL (4.0-5.2); Red Cell Distribution Width 14.9 % (11.6-14.8); White Blood Cell Count 4.1 X10^3/uL (4.5-11.0)
[2024-06-30 13:23] LABS: Alanine Aminotransferase 18 IU/L (<35); Albumin 4.8 g/dL (3.5-5.0); Albumin Globulin Ratio 2.1 (1.0-2.8); Alkaline Phosphatase 81 U/L (38-126); Aspartate Aminotransferase 25 IU/L (14-36); BUN Creatinine Ratio 21.2 (6-22); Bilirubin Total 0.4 mg/dL (0.2-1.3); Blood Urea Nitrogen 18 mg/dL (7-17); Calcium 10.2 mg/dL (8.4-10.2); Carbon Dioxide 28 mmol/L (22-32); Chloride 101 mmol/L (98-107); Estimated Glomerular Filt Rate > 60 mL/min (>60); Globulin 2.3 g/dL (1.7-4.1); Glucose 116 mg/dL (70-100); HEMOLYSIS < 15 (0-50); Potassium 3.8 mmol/L (3.4-5.1); Sodium 138 mmol/L (137-145); Total Protein 7.1 g/dL (6.3-8.2)
== END ==
PROVIDERS: PCP Family Medicine; Referring Provider Internal Medicine; Visit Provider Internal Medicine
DX: C77.9 Secondary and unspecified malignant neoplasm of lymph node, unspecified (principal)
CPT/HCPCS: 36415; 80053; 85025

== ENCOUNTER → 2024-07-14 13:15 | Outpatient (CLI) | payer OTHER, SELFPAY ==
[2024-07-14 14:27] LABS: Add Manual Diff / Slide Review NO; Basophils Absolute Auto 0 /uL (0-100); Basophils Percent Auto 0.4 % (0-2); Eosinophils Absolute Auto 100 /uL (0-450); Eosinophils Percent Auto 1.6 % (2-4); Hematocrit 34.3 % (36-46); Hemoglobin 12.2 g/dL (12.0-16.0); Lymphocytes Absolute Auto 200 /uL (1100-4500); Lymphocytes Percent Auto 7.2 % (25-40); Mean Corpuscular HGB Conc 35.5 % (30-36); Mean Corpuscular Hemoglobin 32.9 PG (26-34); Mean Corpuscular Volume 92.5 fL (80-100); Monocytes Absolute Auto 300 /uL (0-900); Monocytes Percent Auto 10.4 % (3-14); Neutrophils Absolute Auto 2500 /uL (1500-7000); Neutrophils Percent Auto 80.4 % (50-75); Platelet Count 207 X10^3/uL (150-400); Red Blood Cell Count 3.71 X10^6/uL (4.0-5.2); Red Cell Distribution Width 13.9 % (11.6-14.8); White Blood Cell Count 3.1 X10^3/uL (4.5-11.0)
[2024-07-14 15:07] LABS: Alanine Aminotransferase 25 IU/L (<35); Albumin 4.5 g/dL (3.5-5.0); Albumin Globulin Ratio 1.9 (1.0-2.8); Alkaline Phosphatase 79 U/L (38-126); Aspartate Aminotransferase 35 IU/L (14-36); BUN Creatinine Ratio 14.8 (6-22); Bilirubin Total 0.5 mg/dL (0.2-1.3); Blood Urea Nitrogen 16 mg/dL (7-17); Calcium 9.7 mg/dL (8.4-10.2); Carbon Dioxide 26 mmol/L (22-32); Chloride 101 mmol/L (98-107); Estimated Glomerular Filt Rate 60 mL/min (>60); Globulin 2.4 g/dL (1.7-4.1); Glucose 108 mg/dL (70-100); HEMOLYSIS < 15 (0-50); Potassium 4.2 mmol/L (3.4-5.1); Sodium 136 mmol/L (137-145); Total Protein 6.9 g/dL (6.3-8.2)
== END ==
PROVIDERS: PCP Family Medicine; Referring Provider Internal Medicine; Visit Provider Internal Medicine
DX: C77.9 Secondary and unspecified malignant neoplasm of lymph node, unspecified (principal); C71.9 Malignant neoplasm of brain, unspecified
CPT/HCPCS: 36415; 80053; 85025

== ENCOUNTER → 2024-07-22 13:06 | Outpatient (CLI) | payer OTHER, SELFPAY ==
[2024-07-22 14:33] LABS: Add Manual Diff / Slide Review NO; Basophils Absolute Auto 0 /uL (0-100); Basophils Percent Auto 0.1 % (0-2); Eosinophils Absolute Auto 0 /uL (0-450); Eosinophils Percent Auto 0.3 % (2-4); Hematocrit 34.2 % (36-46); Hemoglobin 12.1 g/dL (12.0-16.0); Lymphocytes Absolute Auto 200 /uL (1100-4500); Lymphocytes Percent Auto 5.6 % (25-40); Mean Corpuscular HGB Conc 35.4 % (30-36); Mean Corpuscular Hemoglobin 33.6 PG (26-34); Monocytes Absolute Auto 400 /uL (0-900); Monocytes Percent Auto 9.6 % (3-14); Neutrophils Absolute Auto 3400 /uL (1500-7000); Neutrophils Percent Auto 84.4 % (50-75); Platelet Count 226 X10^3/uL (150-400); Red Cell Distribution Width 13.7 % (11.6-14.8)
[2024-07-22 15:34] LABS: Alanine Aminotransferase 33 IU/L (<35); Albumin 4.6 g/dL (3.5-5.0); Albumin Globulin Ratio 1.9 (1.0-2.8); Alkaline Phosphatase 83 U/L (38-126); Aspartate Aminotransferase 37 IU/L (14-36); BUN Creatinine Ratio 22.5 (6-22); Bilirubin Total 0.4 mg/dL (0.2-1.3); Blood Urea Nitrogen 20 mg/dL (7-17); Calcium 9.7 mg/dL (8.4-10.2); Carbon Dioxide 25 mmol/L (22-32); Chloride 101 mmol/L (98-107); Estimated Glomerular Filt Rate > 60 mL/min (>60); Globulin 2.4 g/dL (1.7-4.1); Glucose 132 mg/dL (70-100); HEMOLYSIS < 15 (0-50); Sodium 138 mmol/L (137-145)
== END ==
PROVIDERS: PCP Family Medicine; Referring Provider Internal Medicine; Visit Provider Internal Medicine
DX: C77.9 Secondary and unspecified malignant neoplasm of lymph node, unspecified (principal)
CPT/HCPCS: 36415; 80053; 85025

== ENCOUNTER → 2024-07-29 12:25 | Outpatient (CLI) | payer OTHER, SELFPAY ==
[2024-07-29 13:50] LABS: Add Manual Diff / Slide Review NO; Basophils Absolute Auto 0 /uL (0-100); Basophils Percent Auto 0.3 % (0-2); Eosinophils Absolute Auto 0 /uL (0-450); Eosinophils Percent Auto 0.5 % (2-4); Hematocrit 33.1 % (36-46); Hemoglobin 11.8 g/dL (12.0-16.0); Lymphocytes Absolute Auto 300 /uL (1100-4500); Lymphocytes Percent Auto 9.1 % (25-40); Mean Corpuscular HGB Conc 35.6 % (30-36); Mean Corpuscular Hemoglobin 33.6 PG (26-34); Mean Corpuscular Volume 94.3 fL (80-100); Monocytes Absolute Auto 400 /uL (0-900); Neutrophils Absolute Auto 2400 /uL (1500-7000); Neutrophils Percent Auto 76.1 % (50-75); Platelet Count 160 X10^3/uL (150-400); Red Blood Cell Count 3.51 X10^6/uL (4.0-5.2); Red Cell Distribution Width 14.6 % (11.6-14.8); White Blood Cell Count 3.2 X10^3/uL (4.5-11.0)
[2024-07-29 14:02] LABS: Alanine Aminotransferase 32 IU/L (<35); Albumin 4.6 g/dL (3.5-5.0); Alkaline Phosphatase 90 U/L (38-126); Aspartate Aminotransferase 37 IU/L (14-36); BUN Creatinine Ratio 20.7 (6-22); Bilirubin Total 0.6 mg/dL (0.2-1.3); Blood Urea Nitrogen 18 mg/dL (7-17); Calcium 9.6 mg/dL (8.4-10.2); Carbon Dioxide 23 mmol/L (22-32); Chloride 104 mmol/L (98-107); Estimated Glomerular Filt Rate > 60 mL/min (>60); Globulin 2.3 g/dL (1.7-4.1); Glucose 95 mg/dL (70-100); HEMOLYSIS < 15 (0-50); Sodium 138 mmol/L (137-145); Total Protein 6.9 g/dL (6.3-8.2)
== END ==
LOC: LAB 12:27
PROVIDERS: PCP Family Medicine; Referring Provider Internal Medicine; Visit Provider Internal Medicine
DX: C71.9 Malignant neoplasm of brain, unspecified (principal)
CPT/HCPCS: 36415; 80053; 85025

== ENCOUNTER → 2024-08-07 14:01 | Outpatient (CLI) | payer OTHER, SELFPAY ==
[2024-08-07 14:43] LABS: Add Manual Diff / Slide Review NO; Basophils Absolute Auto 0 /uL (0-100); Basophils Percent Auto 0.5 % (0-2); Eosinophils Absolute Auto 0 /uL (0-450); Eosinophils Percent Auto 0.2 % (2-4); Hematocrit 34.4 % (36-46); Hemoglobin 12.2 g/dL (12.0-16.0); Lymphocytes Absolute Auto 300 /uL (1100-4500); Lymphocytes Percent Auto 7.5 % (25-40); Mean Corpuscular HGB Conc 35.4 % (30-36); Mean Corpuscular Hemoglobin 33.6 PG (26-34); Mean Corpuscular Volume 94.8 fL (80-100); Monocytes Absolute Auto 400 /uL (0-900); Monocytes Percent Auto 9.4 % (3-14); Neutrophils Absolute Auto 3300 /uL (1500-7000); Neutrophils Percent Auto 82.4 % (50-75); Platelet Count 160 X10^3/uL (150-400); Red Blood Cell Count 3.63 X10^6/uL (4.0-5.2); Red Cell Distribution Width 14.9 % (11.6-14.8); White Blood Cell Count 4.1 X10^3/uL (4.5-11.0)
[2024-08-07 15:29] LABS: Alanine Aminotransferase 39 IU/L (<35); Albumin 4.7 g/dL (3.5-5.0); Albumin Globulin Ratio 2.1 (1.0-2.8); Alkaline Phosphatase 99 U/L (38-126); Aspartate Aminotransferase 44 IU/L (14-36); BUN Creatinine Ratio 22.2 (6-22); Bilirubin Total 0.4 mg/dL (0.2-1.3); Blood Urea Nitrogen 18 mg/dL (7-17); Calcium 9.9 mg/dL (8.4-10.2); Carbon Dioxide 28 mmol/L (22-32); Chloride 101 mmol/L (98-107); Estimated Glomerular Filt Rate > 60 mL/min (>60); Globulin 2.2 g/dL (1.7-4.1); Glucose 154 mg/dL (70-100); HEMOLYSIS < 15 (0-50); Potassium 4.1 mmol/L (3.4-5.1); Sodium 139 mmol/L (137-145); Total Protein 6.9 g/dL (6.3-8.2)
== END ==
LOC: LAB 14:02
PROVIDERS: PCP Family Medicine; Referring Provider Internal Medicine; Visit Provider Internal Medicine
DX: C71.9 Malignant neoplasm of brain, unspecified (principal)
CPT/HCPCS: 36415; 80053; 85025

== ENCOUNTER → 2024-08-13 11:53 | Outpatient (CLI) | payer OTHER, SELFPAY ==
[2024-08-13 14:29] LABS: Hematocrit 30.6 % (36-46); Mean Corpuscular HGB Conc 35.8 % (30-36); Mean Corpuscular Hemoglobin 34.1 PG (26-34); Mean Corpuscular Volume 95.1 fL (80-100); Platelet Count 141 X10^3/uL (150-400); Red Blood Cell Count 3.22 X10^6/uL (4.0-5.2); Red Cell Distribution Width 14.6 % (11.6-14.8); White Blood Cell Count 3.1 X10^3/uL (4.5-11.0)
[2024-08-13 14:48] LABS: Alanine Aminotransferase 41 IU/L (<35); Albumin 4.4 g/dL (3.5-5.0); Albumin Globulin Ratio 1.7 (1.0-2.8); Alkaline Phosphatase 105 U/L (38-126); Aspartate Aminotransferase 42 IU/L (14-36); BUN Creatinine Ratio 18.8 (6-22); Bilirubin Total 0.4 mg/dL (0.2-1.3); Blood Urea Nitrogen 15 mg/dL (7-17); Calcium 9.4 mg/dL (8.4-10.2); Carbon Dioxide 25 mmol/L (22-32); Chloride 104 mmol/L (98-107); Estimated Glomerular Filt Rate > 60 mL/min (>60); Globulin 2.6 g/dL (1.7-4.1); Glucose 102 mg/dL (70-100); HEMOLYSIS < 15 (0-50); Potassium 3.8 mmol/L (3.4-5.1); Sodium 138 mmol/L (137-145)
[2024-08-13 17:42] LABS: Neutrophils Absolute Manual 2449 /uL (3000-5900); Platelet Estimate Decreased on smear; RBC Morphology Normal Morphology; Total Cells Counted 100
== END ==
LOC: LAB 11:55
PROVIDERS: PCP Family Medicine; Referring Provider Internal Medicine; Visit Provider Internal Medicine
DX: C71.9 Malignant neoplasm of brain, unspecified (principal)
CPT/HCPCS: 36415; 80053; 85025

== ENCOUNTER → 2024-08-27 13:03 | Outpatient (CLI) | payer OTHER, SELFPAY ==
[2024-08-27 13:46] LABS: Alanine Aminotransferase 125 IU/L (<35); Albumin 4.7 g/dL (3.5-5.0); Albumin Globulin Ratio 2.1 (1.0-2.8); Alkaline Phosphatase 180 U/L (38-126); Aspartate Aminotransferase 99 IU/L (14-36); Bilirubin Total 0.6 mg/dL (0.2-1.3); Blood Urea Nitrogen 21 mg/dL (7-17); Calcium 9.5 mg/dL (8.4-10.2); Carbon Dioxide 24 mmol/L (22-32); Chloride 102 mmol/L (98-107); Estimated Glomerular Filt Rate > 60 mL/min (>60); Globulin 2.2 g/dL (1.7-4.1); Glucose 105 mg/dL (70-100); HEMOLYSIS < 15 (0-50); Potassium 4.2 mmol/L (3.4-5.1); Sodium 136 mmol/L (137-145); Total Protein 6.9 g/dL (6.3-8.2)
[2024-08-27 13:52] LABS: Add Manual Diff / Slide Review NO; Basophils Absolute Auto 0 /uL (0-100); Basophils Percent Auto 0.3 % (0-2); Eosinophils Absolute Auto 0 /uL (0-450); Eosinophils Percent Auto 0.9 % (2-4); Hematocrit 30.9 % (36-46); Hemoglobin 11.2 g/dL (12.0-16.0); Lymphocytes Absolute Auto 100 /uL (1100-4500); Lymphocytes Percent Auto 4.5 % (25-40); Mean Corpuscular HGB Conc 36.1 % (30-36); Mean Corpuscular Hemoglobin 34.4 PG (26-34); Mean Corpuscular Volume 95.4 fL (80-100); Monocytes Absolute Auto 400 /uL (0-900); Monocytes Percent Auto 11.4 % (3-14); Neutrophils Absolute Auto 2600 /uL (1500-7000); Neutrophils Percent Auto 82.9 % (50-75); Platelet Count 162 X10^3/uL (150-400); Red Blood Cell Count 3.24 X10^6/uL (4.0-5.2); Red Cell Distribution Width 14.5 % (11.6-14.8); White Blood Cell Count 3.1 X10^3/uL (4.5-11.0)
== END ==
PROVIDERS: PCP Family Medicine; Referring Provider Internal Medicine; Visit Provider Internal Medicine
DX: C71.9 Malignant neoplasm of brain, unspecified (principal)
CPT/HCPCS: 36415; 80053; 85025

== ENCOUNTER → 2024-09-03 12:31 | Outpatient (CLI) | payer OTHER, SELFPAY ==
[2024-09-03 13:32] LABS: Hematocrit 31.2 % (36-46); Hemoglobin 11.2 g/dL (12.0-16.0); Mean Corpuscular HGB Conc 35.9 % (30-36); Mean Corpuscular Hemoglobin 34.8 PG (26-34); Mean Corpuscular Volume 97.1 fL (80-100); Platelet Count 181 X10^3/uL (150-400); Red Blood Cell Count 3.22 X10^6/uL (4.0-5.2); Red Cell Distribution Width 15.3 % (11.6-14.8); White Blood Cell Count 2.8 X10^3/uL (4.5-11.0)
[2024-09-03 13:57] LABS: Alanine Aminotransferase 135 IU/L (<35); Albumin 4.6 g/dL (3.5-5.0); Alkaline Phosphatase 208 U/L (38-126); Aspartate Aminotransferase 84 IU/L (14-36); BUN Creatinine Ratio 17.4 (6-22); Bilirubin Total 0.6 mg/dL (0.2-1.3); Blood Urea Nitrogen 16 mg/dL (7-17); Calcium 9.6 mg/dL (8.4-10.2); Carbon Dioxide 23 mmol/L (22-32); Chloride 101 mmol/L (98-107); Estimated Glomerular Filt Rate > 60 mL/min (>60); Globulin 2.3 g/dL (1.7-4.1); Glucose 113 mg/dL (70-100); HEMOLYSIS < 15 (0-50); Potassium 4.2 mmol/L (3.4-5.1); Sodium 136 mmol/L (137-145); Total Protein 6.9 g/dL (6.3-8.2)
[2024-09-03 14:47] LABS: Neutrophils Absolute Manual 2296 /uL (3000-5900); RBC Morphology Normal Morphology; Total Cells Counted 100
== END ==
LOC: LAB 12:33
PROVIDERS: PCP Family Medicine; Referring Provider Internal Medicine; Visit Provider Internal Medicine
DX: C71.9 Malignant neoplasm of brain, unspecified (principal)
CPT/HCPCS: 36415; 80053; 85025

== ENCOUNTER → 2024-09-10 12:51 | Outpatient (CLI) | payer OTHER, SELFPAY ==
[2024-09-10 13:25] LABS: Hematocrit 31.2 % (36-46); Hemoglobin 11.1 g/dL (12.0-16.0); Mean Corpuscular HGB Conc 35.7 % (30-36); Mean Corpuscular Hemoglobin 34.8 PG (26-34); Mean Corpuscular Volume 97.4 fL (80-100); Platelet Count 169 X10^3/uL (150-400); Red Blood Cell Count 3.21 X10^6/uL (4.0-5.2); Red Cell Distribution Width 15.6 % (11.6-14.8); White Blood Cell Count 2.7 X10^3/uL (4.5-11.0)
[2024-09-10 13:37] LABS: Alanine Aminotransferase 155 IU/L (<35); Albumin 4.5 g/dL (3.5-5.0); Albumin Globulin Ratio 1.7 (1.0-2.8); Alkaline Phosphatase 225 U/L (38-126); Anisocytosis 2+; Aspartate Aminotransferase 128 IU/L (14-36); Bilirubin Total 0.6 mg/dL (0.2-1.3); Blood Urea Nitrogen 17 mg/dL (7-17); Calcium 9.9 mg/dL (8.4-10.2); Carbon Dioxide 26 mmol/L (22-32); Chloride 101 mmol/L (98-107); Estimated Glomerular Filt Rate > 60 mL/min (>60); Globulin 2.7 g/dL (1.7-4.1); Glucose 109 mg/dL (70-100); HEMOLYSIS < 15 (0-50); Neutrophils Absolute Manual 2052 /uL (3000-5900); Poikilocytosis 1+; Potassium 4.1 mmol/L (3.4-5.1); Sodium 138 mmol/L (137-145); Total Cells Counted 100; Total Protein 7.2 g/dL (6.3-8.2)
== END ==
LOC: LAB 12:52
PROVIDERS: PCP Family Medicine; Referring Provider Internal Medicine; Visit Provider Internal Medicine
DX: C71.9 Malignant neoplasm of brain, unspecified (principal)
CPT/HCPCS: 36415; 80053; 85025

== ENCOUNTER → 2024-09-16 14:53 | Outpatient (CLI) | payer OTHER, SELFPAY ==
[2024-09-16 15:40] LABS: Add Manual Diff / Slide Review NO; Basophils Absolute Auto 0 /uL (0-100); Basophils Percent Auto 0.4 % (0-2); Eosinophils Absolute Auto 0 /uL (0-450); Eosinophils Percent Auto 0.6 % (2-4); Hematocrit 30.7 % (36-46); Hemoglobin 10.9 g/dL (12.0-16.0); Lymphocytes Absolute Auto 200 /uL (1100-4500); Lymphocytes Percent Auto 6.6 % (25-40); Mean Corpuscular HGB Conc 35.4 % (30-36); Monocytes Absolute Auto 400 /uL (0-900); Monocytes Percent Auto 12.9 % (3-14); Neutrophils Absolute Auto 2700 /uL (1500-7000); Neutrophils Percent Auto 79.5 % (50-75); Platelet Count 186 X10^3/uL (150-400); Red Cell Distribution Width 15.4 % (11.6-14.8); White Blood Cell Count 3.4 X10^3/uL (4.5-11.0)
[2024-09-16 15:56] LABS: Alanine Aminotransferase 138 IU/L (<35); Albumin 4.6 g/dL (3.5-5.0); Albumin Globulin Ratio 2.1 (1.0-2.8); Alkaline Phosphatase 215 U/L (38-126); Aspartate Aminotransferase 91 IU/L (14-36); Bilirubin Total 0.5 mg/dL (0.2-1.3); Blood Urea Nitrogen 20 mg/dL (7-17); Calcium 9.7 mg/dL (8.4-10.2); Carbon Dioxide 25 mmol/L (22-32); Chloride 103 mmol/L (98-107); Estimated Glomerular Filt Rate > 60 mL/min (>60); Globulin 2.2 g/dL (1.7-4.1); Glucose 105 mg/dL (70-100); HEMOLYSIS < 15 (0-50); Potassium 4.5 mmol/L (3.4-5.1); Sodium 137 mmol/L (137-145); Total Protein 6.8 g/dL (6.3-8.2)
== END ==
PROVIDERS: PCP Family Medicine; Referring Provider Internal Medicine; Visit Provider Internal Medicine
DX: C71.9 Malignant neoplasm of brain, unspecified (principal)
CPT/HCPCS: 36415; 80053; 85025

== ENCOUNTER → 2024-09-23 14:08 | Outpatient (CLI) | payer OTHER, SELFPAY ==
[2024-09-23 14:32] LABS: Hematocrit 33.1 % (36-46); Hemoglobin 11.7 g/dL (12.0-16.0); Mean Corpuscular HGB Conc 35.3 % (30-36); Mean Corpuscular Hemoglobin 34.8 PG (26-34); Mean Corpuscular Volume 98.5 fL (80-100); Platelet Count 200 X10^3/uL (150-400); Red Blood Cell Count 3.36 X10^6/uL (4.0-5.2); Red Cell Distribution Width 15.2 % (11.6-14.8); White Blood Cell Count 4.1 X10^3/uL (4.5-11.0)
[2024-09-23 15:11] LABS: Alanine Aminotransferase 137 IU/L (<35); Albumin 4.7 g/dL (3.5-5.0); Albumin Globulin Ratio 1.8 (1.0-2.8); Aspartate Aminotransferase 96 IU/L (14-36); BUN Creatinine Ratio 23.4 (6-22); Blood Urea Nitrogen 18 mg/dL (7-17); Carbon Dioxide 26 mmol/L (22-32); Chloride 104 mmol/L (98-107); Estimated Glomerular Filt Rate > 60 mL/min (>60); Globulin 2.6 g/dL (1.7-4.1); Glucose 105 mg/dL (70-100); HEMOLYSIS < 15 (0-50); Sodium 138 mmol/L (137-145); Total Protein 7.3 g/dL (6.3-8.2)
[2024-09-23 15:12] LABS: Alkaline Phosphatase 218 U/L (38-126); Bilirubin Total 0.6 mg/dL (0.2-1.3); Potassium 4.8 mmol/L (3.4-5.1)
[2024-09-23 15:51] LABS: Neutrophils Absolute Manual 3444 /uL (3000-5900); Total Cells Counted 100
[2024-09-23 15:52] LABS: Anisocytosis 1+
== END ==
PROVIDERS: PCP Family Medicine; Referring Provider Internal Medicine; Visit Provider Internal Medicine
DX: C71.9 Malignant neoplasm of brain, unspecified (principal)
CPT/HCPCS: 36415; 80053; 85025

== ENCOUNTER → 2024-10-06 14:26 | Outpatient (CLI) | payer OTHER, SELFPAY ==
--- NOTE | 2024-10-06 14:28 | DI.MG.S_ITS ---
MM screening mammo unilat LT: 10/06/2024. BI-RADS: 2 CLINICAL: 59-year old female for left screening mammogram. No Tyrer-Cuzick risk score calculation due to the patient's personal history of breast cancer. Patient reports a history of right breast carcinoma diagnosed at age 48. Status-post right mastectomy with radiation therapy, chemotherapy and hormonal therapy. No first-degree family history of breast cancer. Current reported family history of breast cancer: maternal grandmother. The patient reports testing negative for BRCA gene mutation. The patient had a prior right breast biopsy. PRIOR EXAMS 07/08/2023, 07/06/2022, 03/22/2021, 02/12/2020, 02/04/2020, 12/31/2018, 11/06/2017, 11/05/2016, 10/25/2015. MAMMOGRAPHY TECHNIQUE: 2D and 3D (tomosynthesis) digital mammographic views obtained, with additional images as needed for full coverage. Current study was also evaluated with a Computer Aided Detection (CAD) system. DENSITY Left: C. The breasts are heterogeneously dense, which may obscure small masses. MAMMOGRAPHY FINDINGS Left: Biopsy markers present on the left. Benign-appearing masses noted on the left. There are no suspicious masses, calcifications, or other findings in the breast. No significant change from comparison. IMPRESSION: Left * No evidence of malignancy with benign findings. RECOMMENDATIONS Left * Annual screening mammography. OVERALL ASSESSMENT CATEGORY BI-RADS-2: Benign. The [employer] recommends annual screening mammography beginning at age 40 for women with average risk of breast cancer. ELECTRONICALLY SIGNED: Sebastian Bernal M.D. on 10/06/2024 at 03:58:36 PM PT
== END ==
PROVIDERS: PCP Family Medicine; Referring Provider Family Medicine; Visit Provider Family Medicine
DX: Z12.31 Encounter for screening mammogram for malignant neoplasm of breast (principal); R92.332 Mammographic heterogeneous density, left breast; Z85.3 Personal history of malignant neoplasm of breast; Z80.3 Family history of malignant neoplasm of breast; Z90.11 Acquired absence of right breast and nipple
CPT/HCPCS: 77063; 77067

== ENCOUNTER 2024-10-16 18:19 | Emergency (ER) | payer OTHER, SELFPAY ==
[2024-10-16] VITALS (7 sets, daily range): BP systolic 104–126; BP diastolic 67–76; PULSE 71–109; RESP 12–24; TEMP 36.9; O2SAT 92–96
--- NOTE | 2024-10-16 18:31 | DI.CT.S_ITS ---
PROCEDURE: CT HEAD/BRAIN WO CON INDICATIONS: seizures TECHNIQUE: Noncontrast 4.5 mm thick angled axial sections acquired from the foramen magnum to the vertex, with coronal and sagittal reformats. For radiation dose reduction, the following was used: automated exposure control, adjustment of mA and/or kV according to patient size. COMPARISON: [facility], CT, CT HEAD/BRAIN WO CON, 11/18/2023, 10:07. FINDINGS: Image quality: Diagnostic. CSF spaces: Basal cisterns are patent. Small extra-axial fluid deep to the craniotomy measuring approximately 4 mm is likely postsurgical in etiology and stable compared to prior. Ventricles are normal in size and shape. Brain: Right frontal resection cavity. No midline shift. No intracranial mass effect or hemorrhage. Peterson-white matter interface is normal. Skull and face: Right-sided craniotomy. Calvarium and visualized facial bones are intact, without suspicious lesions. Sinuses: Visualized sinuses and mastoids are clear. IMPRESSION: Right frontal resection cavity. Small extra-axial fluid deep to the craniotomy is likely postsurgical in etiology. Otherwise, no acute intracranial abnormalities. Dictated by: Henrique Mondragon M.D. on 10/16/2024 at 19:19 Approved by: Henrique Mondragon M.D. on 10/16/2024 at 19:20
--- NOTE | 2024-10-16 18:32 | EKG_ITS ---
[id number] [place] [address] Test Date: 2024-10-16 Pat Name: Verónica Cobian Department: Room: Gender: Female Microphone Operator: CARMEN : 1965 Requested By: Order Number: [id number] Reading MD: Alton Coelho MD Measurements Intervals [place] Rate: 108 P: 53 AK: 124 QRS: 44 QRSD: 86 T: 8 QT: 340 QTc: 455 Interpretive Statements Sinus tachycardia Nonspecific ST abnormality Electronically Signed On 10-17-2024 14:07:30 PDT by Alton Coelho MD
--- NOTE | 2024-10-16 18:36 | ED_ITS ---
HPI - Seizure General Chief Complaint: Seizure Stated Complaint: Seizure Time Seen by Provider: 10/16/24 18:24 Source: EMS Mode of arrival: EMS Limitations: other History of Present Illness HPI Narrative: 59-year-old female history of right breast cancer diagnosis in 2013 in remission and also history of glioblastoma s/p 2 brain surgeries (craniotomy) right frontal region seen last per our EHR by the neurosurgeon on 11/20/2023 as of that note and time patient was still on Keppra 500mg BID brought in the evening by EMS for 2 witnessed seizures given 5 mg of Versed prior to arrival here in the ER. The 1st seizure was witnessed by the that lasted for a few seconds and the 2nd was witnessed by EMS on transport to the hospital. Patient is currently sedated and post ictal unable to answer questions at this time so unable to answer in complete 14 point review of system. The old charts was reviewed and did nurse triage note was also reviewed and EMS report was reviewed in light of inability to review 14 point review of system. Related Data Home Medications Medication Instructions Recorded Confirmed calcium carbonate 500 mg PO DAILY 03/18/19 12/10/23 omega 9-vhr-ome-fish oil 1,000 mg 1 cap PO DAILY 03/18/19 12/10/23 (120 mg-180 mg) capsule cholecalciferol (vitamin D3) 25 1,000 unit DAILY 02/16/20 12/10/23 mcg (1,000 unit) capsule (Vitamin D3) L.acid,gas,bess,rham-B.ani-cran PO 12/10/23 12/10/23 [up4 Probiotics Women's] levetiracetam 250 mg tablet 750 mg PO BID 12/10/23 12/10/23 (Keppra) multivitamin combination no.56 PO 12/10/23 12/10/23 Previous Rx's Medication Instructions Recorded lorazepam 0.5 mg tablet (Ativan) 0.5 mg PO TID PRN anxiety #14 tabs 06/24/24 Allergies Allergy/AdvReac Type Severity Reaction Status Date / Time No Known Drug Allergies Allergy Verified 06/24/24 12:55 Review of Systems Review of Systems ROS Unobtainable: All systems reviewed & are unremarkable except as noted in HPI and below Patient History Medical History Epilepsy Glioblastoma determined by biopsy of brain Well adult Sebaceous cyst Surgical History Status post hysterectomy (12/31/16) Status post partial mastectomy (04/29/15) Family History Father Stroke Mother Hypertension Grandmother Cancer Social History marital status: household members: spouse alcohol intake: current substance use type: does not use Exam Narrative Exam Narrative: GENERAL: [59] year old patient appears stated age. Well-developed patient, in mild distress. HEAD: Atraumatic. Normocephalic. EYES: Pupils equal round and reactive. Extraocular motions intact. No scleral icterus. No injection or drainage. ENT: Nose without bleeding, purulent drainage. Throat without erythema, tonsillar hypertrophy or exudate. Airway patent. NECK: Trachea midline. Non tender CARDIOVASCULAR: Regular rate and rhythm without murmurs, gallops, or rubs. RESPIRATORY: Clear to auscultation. Breath sounds equal bilaterally. No wheezes, rales, or rhonchi. GASTROINTESTINAL: Abdomen soft, non-tender, nondistended. EXTREMITIES: No edema or joint tenderness. BACK: Nontender without deformity or crepitance. No flank tenderness. NEURO: SKIN: No rash or erythema of visible areas Initial Vital Signs Initial Vital Signs: Vital Signs Temperature 98.4 F 10/16/24 18:22 Pulse Rate 101 H 10/16/24 18:22 Respiratory Rate 12 10/16/24 18:22 Blood Pressure 114/68 10/16/24 18:22 Pulse Oximetry 93 10/16/24 18:22 Oxygen Delivery Method Room Air, Non -Rebreather 10/16/24 18:22 Course Orders Ordered: ED Orders 10/16/24 18:10 Complete Blood Count AUTO DIFF Stat Comprehensive Metabolic Panel Stat Ethanol (ETOH) Stat PTT Partial Thromboplastin Mike Stat Prothrombin Time INR Stat Troponin & CK Cardiac Panel Stat 10/16/24 18:31 CT head/brain wo con Stat 10/16/24 18:32 COVID19 -Nasal RAPID Stat Urinalysis and Microscopic Stat Urine Drug Screen, Rapid Stat EKG-12 Lead Stat Discontinued Medications Levetiracetam 500 mg/ Sodium (Chloride) 105 mls @ 420 mls/hr IV NOW ONE Stop: 10/16/24 18:35 Last Infusion: 10/16/24 19:31 Dose: Infused Documented By: Admin: 10/16/24 18:44 Dose: 420 mls/hr Documented By: TREY Vital Signs Vital signs: Vital Signs - 8 hr 10/16/24 18:22 10/16/24 18:22 10/16/24 18:22 Temperature 98.4 F Pulse Rate 101 H 95 H Respiratory Rate 12 Blood Pressure 114/68 114/68 Pulse Oximetry 93 93 Oxygen Delivery Method Room Air Non -Rebreather 10/16/24 18:30 10/16/24 18:30 10/16/24 19:03 Temperature Pulse Rate 104 H 71 Respiratory Rate 24 Blood Pressure 116/69 Pulse Oximetry 94 Oxygen Delivery Method 10/16/24 19:04 10/16/24 19:04 10/16/24 19:30 Temperature Pulse Rate 107 H 109 H Respiratory Rate 20 21 Blood Pressure 104/67 Pulse Oximetry 94 96 Oxygen Delivery Method 10/16/24 19:30 10/16/24 20:00 Temperature Pulse Rate 98 H Respiratory Rate 20 Blood Pressure 118/76 126/75 Pulse Oximetry 92 Oxygen Delivery Method MDM - Seizure Lab Data 10/16/24 18:10 10/16/24 18:10 Labs: Lab Results 10/16/24 Range/Units 18:10 WBC 6.2 (4.5-11.0) X10^3/uL RBC 3.60 L (4.0-5.2) X10^6/uL Hgb 12.4 (12.0-16.0) g/dL Hct 38.0 (36-46) % MCV 105.7 H (80-100) fL MCH 34.5 H (26-34) PG MCHC 32.7 (30-36) % RDW 14.3 (11.6-14.8) % Plt Count 249 (150-400) X10^3/uL Neut % (Auto) 57.2 (50-75) % Lymph % (Auto) 27.6 (25-40) % Titus % (Auto) 12.9 (3-14) % Eos % (Auto) 1.8 L (2-4) % Baso % (Auto) 0.5 (0-2) % Neut # (Auto) 3500 (7841-5684) /uL Lymph # (Auto) 1700 (5664-6546) /uL Titus # (Auto) 800 (0-900) /uL Eos # (Auto) 100 (0-450) /uL Baso # (Auto) 0 (0-100) /uL PT 11.5 (9.4-12.5) SECONDS INR 1.0 (0.9-1.3) APTT 38 H (25.1-36.5) SECONDS Sodium 146 H (137-145) mmol/L Potassium 5.2 H (3.4-5.1) mmol/L Chloride 106 (98-107) mmol/L Carbon Dioxide 12 L (22-32) mmol/L BUN 19 H (7-17) mg/dL Creatinine 1.02 (0.52-1.04) mg/dL Estimated GFR > 60 (>60) mL/min BUN/Creatinine Ratio 18.6 (6-22) Glucose 168 H (70-99) mg/dL Calcium 10.8 H (8.4-10.2) mg/dL Total Bilirubin 0.7 (0.2-1.3) mg/dL AST 117 H (14-36) IU/L ALT 163 H (<35) IU/L Alkaline Phosphatase 225 H (38-126) U/L Total Creatine Kinase 41 (30-135) U/L Troponin I < 0.012 (0.01-0.034) ng/mL Total Protein 7.8 (6.3-8.2) g/dL Albumin 5.2 H (3.5-5.0) g/dL Globulin 2.6 (1.7-4.1) g/dL Albumin/Globulin Ratio 2.0 (1.0-2.8) Ethyl Alcohol < 10 ( - 10) mg/dL Imaging Data CT scan - head: Radiologist's Impression: [address] [address] [address] Scan Report Signed Patient: Verónica Cobian I MR#: [id number] : 1965 Acct:[id number] Age/Sex: 59 / F Date of Service: 10/16/24 Loc: ED Accession Number: [id number] Procedure: CT head/brain wo con Ordering Provider: Alton Keller D.O. PROCEDURE: CT HEAD/BRAIN WO CON INDICATIONS: seizures TECHNIQUE: Noncontrast 4.5 mm thick angled axial sections acquired from the foramen magnum to the vertex, with coronal and sagittal reformats. For radiation dose reduction, the following was used: automated exposure control, adjustment of mA and/or kV according to patient size. COMPARISON: [facility], CT, CT HEAD/BRAIN WO CON, 11/18/2023, 10:07. FINDINGS: Image quality: Diagnostic. CSF spaces: Basal cisterns are patent. Small extra-axial fluid deep to the craniotomy measuring approximately 4 mm is likely postsurgical in etiology and stable compared to prior. Ventricles are normal in size and shape. Brain: Right frontal resection cavity. No midline shift. No intracranial mass effect or hemorrhage. Peterson-white matter interface is normal. Skull and face: Right-sided craniotomy. Calvarium and visualized facial bones are intact, without suspicious lesions. Sinuses: Visualized sinuses and mastoids are clear. IMPRESSION: Right frontal resection cavity. Small extra-axial fluid deep to the craniotomy is likely postsurgical in etiology. Otherwise, no acute intracranial abnormalities. Dictated by: Henrique Mondragon M.D. on 10/16/2024 at 19:19 Approved by: Henrique Mondragon M.D. on 10/16/2024 at 19:20 ECG Data Interpretation: Sinus Tach HR 108 AL 124 QRS [address]-t wave change No previous to compare against [facility] Narrative Medical decision making narrative: All lab work EKG CT scan vital signs nurse triage note previous ER visits all specialty notes and all previous imaging studies reviewed. Patient given Keppra 500 mg IV x1 here on re-examination patient is has a nonfocal neuro exam GCS of 15. Differential diagnosis includes subtherapeutic Keppra dosing, mass ,tumor, CVA, seizure, electrolyte derangement. Patient will follow up with with subspecialists on Saturday for further guidance regarding seizure. Discharge Plan Departure Patient Disposition: Home Clinical Impression: Seizure Instructions: DI for Seizure Disorder -- Adult Activity Restrictions/Additional Instructions: Return with new or worsening symptoms. Follow up with subspecialist on Saturday regarding Keppra dosing for seizure prevention. Prescriptions: No Action multivitamin combination no.56 PO L.acid,gas,bess,rham-B.ani-cran [up4 Probiotics Women's] PO levetiracetam [Keppra] 250 mg tablet 750 mg PO BID calcium carbonate 500 mg calcium (1,250 mg) tablet 500 mg PO DAILY omega 9-dhz-bjc-fish oil 1,000 mg (120 mg-180 mg) capsule 1 cap PO DAILY lorazepam [Ativan] 0.5 mg tablet 0.5 mg PO TID PRN (Reason: anxiety) Qty: 14 0RF cholecalciferol (vitamin D3) [Vitamin D3] 25 mcg (1,000 unit) Capsule 1,000 unit DAILY Referrals: Chandler Mark, [Primary Care Provider] - Stand Alone Forms: Patient Portal/API/Survey
[2024-10-16 18:42] LABS: Add Manual Diff / Slide Review NO; Basophils Absolute Auto 0 /uL (0-100); Basophils Percent Auto 0.5 % (0-2); Eosinophils Absolute Auto 100 /uL (0-450); Eosinophils Percent Auto 1.8 % (2-4); Hemoglobin 12.4 g/dL (12.0-16.0); Lymphocytes Absolute Auto 1700 /uL (1100-4500); Lymphocytes Percent Auto 27.6 % (25-40); Mean Corpuscular HGB Conc 32.7 % (30-36); Mean Corpuscular Hemoglobin 34.5 PG (26-34); Mean Corpuscular Volume 105.7 fL (80-100); Monocytes Absolute Auto 800 /uL (0-900); Monocytes Percent Auto 12.9 % (3-14); Neutrophils Absolute Auto 3500 /uL (1500-7000); Neutrophils Percent Auto 57.2 % (50-75); Platelet Count 249 X10^3/uL (150-400); Red Cell Distribution Width 14.3 % (11.6-14.8); White Blood Cell Count 6.2 X10^3/uL (4.5-11.0)
[2024-10-16 18:44] LABS: Prothrombin Time 11.5 SECONDS (9.4-12.5)
[2024-10-16] MEDS: levETIRAcetam 500 MG in SODIUM CHLORIDE 0.9% 100 ML 420 MG IV (18:44)
[2024-10-16 18:47] LABS: PTT Partial Thromboplastin Tim 38 SECONDS (25.1-36.5)
[2024-10-16 18:50] LABS: Alanine Aminotransferase 163 IU/L (<35); Albumin 5.2 g/dL (3.5-5.0); Alkaline Phosphatase 225 U/L (38-126); Aspartate Aminotransferase 117 IU/L (14-36); BUN Creatinine Ratio 18.6 (6-22); Bilirubin Total 0.7 mg/dL (0.2-1.3); Blood Urea Nitrogen 19 mg/dL (7-17); Calcium 10.8 mg/dL (8.4-10.2); Carbon Dioxide 12 mmol/L (22-32); Chloride 106 mmol/L (98-107); Creatine Kinase 41 U/L (30-135); Estimated Glomerular Filt Rate > 60 mL/min (>60); Ethanol (ETOH) < 10 mg/dL; Globulin 2.6 g/dL (1.7-4.1); Glucose 168 mg/dL (70-99); HEMOLYSIS < 15 (0-50); Potassium 5.2 mmol/L (3.4-5.1); Sodium 146 mmol/L (137-145); Total Protein 7.8 g/dL (6.3-8.2)
[2024-10-16 19:01] LABS: Troponin I < 0.012 ng/mL (0.01-0.034)
[2024-10-16 21:09] LABS: Influenza A - CEPHEID Flu A NEGATIVE (NEGATIVE); Influenza B - CEPHEID Flu B NEGATIVE (NEGATIVE); Respiratory Syncytial Virus Negative (Negative)
[2024-10-16 21:18] LABS: COVID-19 CEPHEID 4-PLEX PCR Negative (Negative)
== END 2024-10-16 20:59 | disposition home or self-care (01) ==
PROVIDERS: Emergency Provider Family Medicine; PCP Family Medicine
DX: G40.909 Epilepsy, unspecified, not intractable, without status epilepticus (principal)
CPT/HCPCS: 0241U; 70450; 80053; 80320; 82550; 84484; 85025; 85610; 85730; 93005; 93010; 96365; 99284; J1953

== ENCOUNTER 2025-04-06 14:19 | Emergency (ER) | payer OTHER, SELFPAY ==
[2025-04-06] VITALS (20 sets, daily range): BP systolic 105–163; BP diastolic 55–79; PULSE 74–101; RESP 17–24; TEMP 36.6; O2SAT 98–100; BMI 20.5
--- NOTE | 2025-04-06 15:08 | DI.RAD.S_ITS ---
PROCEDURE: XR CHEST 1V INDICATIONS: chest pain TECHNIQUE: One view of the chest was acquired. COMPARISON: [facility], CR, XR CHEST 1V, 02/23/2025, 13:41. FINDINGS: Moderate bilateral diffuse peribronchial thickening, more than expected for expiratory result and bronchitis, viral infection, asthma or other process should be considered. Mildly prominent lesa, mildly prominent pulmonary vessels. Cardiopericardial silhouette within normal limits. No pneumothorax, no pleural effusion, no lobar consolidation IMPRESSION: Peribronchial thickening and prominent lesa. Follow-up suggested. If symptoms persist or worsen, CT chest could be performed. Dictated by: Shawn Robles M.D. on 04/06/2025 at 15:58 Approved by: Shawn Robles M.D. on 04/06/2025 at 16:01
--- NOTE | 2025-04-06 15:10 | ED.SEIZURE ---
HPI - Seizure General Chief Complaint: Seizure Stated Complaint: having seizure per pt Time Seen by Provider: 04/06/25 14:59 History of Present Illness HPI Narrative: 59-year-old female history glioblastoma status post 2 brain surgeries craniotomies on Keppra right breast cancer in remission presents with seizure today witnessed by the this usually occurs when she is under stress or over stimulated. She is currently on Keppra and has not missed a dose. 's father is a drinker and they do live with her live with her and that is also contributing to her stress. Patient denies fever, chills, body aches, sore throat, nausea, vomiting, abdominal pain, chest pain, shortness of breath, headache, dizziness, blurred vision, stiff neck, rash. Other than what is stated 14 point review of systems negative. Related Data Home Medications ?Medication ?Instructions ?Recorded ?Confirmed calcium carbonate 500 mg PO DAILY 03/18/19 02/04/25 omega 5-rwy-wtq-fish oil 1,000 mg 1 cap PO DAILY 03/18/19 02/04/25 (120 mg-180 mg) capsule cholecalciferol (vitamin D3) 25 1,000 unit DAILY 02/16/20 02/04/25 mcg (1,000 unit) capsule (Vitamin D3) L.acid,gas,bess,rham-B.ani-cran PO 12/10/23 02/04/25 [up4 Probiotics Women's] levetiracetam 250 mg tablet 750 mg PO BID 12/10/23 02/04/25 (Keppra) multivitamin combination no.56 PO 12/10/23 02/04/25 Previous Rx's ?Medication ?Instructions ?Recorded lorazepam 0.5 mg tablet (Ativan) 0.5 mg PO TID PRN anxiety #14 tabs 06/24/24 Allergies Allergy/AdvReac Type Severity Reaction Status Date / Time No Known Drug Allergies Allergy Verified 02/23/25 13:05 Review of Systems Review of Systems ROS Unobtainable: All systems reviewed & are unremarkable except as noted in HPI and below Patient History Medical History Seborrheic keratoses Epilepsy Glioblastoma determined by biopsy of brain Well adult Sebaceous cyst Surgical History Status post hysterectomy (12/31/16) Status post partial mastectomy (04/29/15) Family History Father Stroke Mother Hypertension Grandmother Cancer Social History marital status: household members: spouse alcohol intake: current substance use type: does not use Exam Narrative Exam Narrative: GENERAL: 59 year old patient appears stated age. Well-developed patient, in mild distress. HEAD: Atraumatic. Normocephalic. EYES: Pupils equal round and reactive. Extraocular motions intact. No scleral icterus. No injection or drainage. ENT: Nose without bleeding, purulent drainage. Throat without erythema, tonsillar hypertrophy or exudate. Airway patent. NECK: Trachea midline. Non tender CARDIOVASCULAR: Regular rate and rhythm without murmurs, gallops, or rubs. RESPIRATORY: Clear to auscultation. Breath sounds equal bilaterally. No wheezes, rales, or rhonchi. GASTROINTESTINAL: Abdomen soft, non-tender, nondistended. EXTREMITIES: No edema or joint tenderness. BACK: Nontender without deformity or crepitance. No flank tenderness. NEURO: AOx3. SKIN: No rash or erythema of visible areas Initial Vital Signs Initial Vital Signs: Vital Signs Temperature 98 F 04/06/25 14:22 Pulse Rate 74 04/06/25 14:22 Respiratory Rate 22 04/06/25 14:22 Blood Pressure 124/71 04/06/25 14:22 Pulse Oximetry 98 04/06/25 14:22 Oxygen Delivery Method Room Air 04/06/25 14:22 Course Orders Ordered: ED Orders 04/06/25 13:57 Complete Blood Count AUTO DIFF Stat 04/06/25 14:31 Comprehensive Metabolic Panel Stat Lipase Stat Magnesium Stat NT-proBNP (BNP-Adult 18+) Stat Troponin I Stat 04/06/25 15:08 XR chest 1V Stat [facility] Creatine Kinase MB Routine EKG-12 Lead Stat 04/06/25 15:09 CT angio head and neck Stat CT head/brain wo con Stat Discontinued Medications Lactated Ringer's (Lactated Ringers) 500 mls @ 1,000 mls/hr IV BOLUS ONE Stop: 04/06/25 15:38 Last Admin: 04/06/25 15:33 Dose: 1,000 mls/hr Documented By: JOSE A Levetiracetam 1,000 mg/ Sodium (Chloride) 110 mls @ 440 mls/hr IV NOW ONE Stop: 04/06/25 15:10 Last Infusion: 04/06/25 16:03 Dose: Infused Documented By: JOSE A Admin: 04/06/25 15:32 Dose: 440 mls/hr Documented By: JOSE A Lorazepam (Lorazepam 2 Mg/Ml Inj) 2 mg IV NOW ONE Stop: 04/06/25 15:04 Last Admin: 04/06/25 15:09 Dose: 2 mg Documented By: JOSE A Vital Signs Vital signs: Vital Signs - 8 hr 04/06/25 14:22 04/06/25 14:38 04/06/25 14:41 Temperature 98 F Pulse Rate 74 98 H 92 H Respiratory Rate 22 22 Blood Pressure 124/71 Pulse Oximetry 98 100 100 Oxygen Delivery Method Room Air 04/06/25 14:41 04/06/25 14:45 04/06/25 14:45 Temperature Pulse Rate 88 Respiratory Rate 22 Blood Pressure 163/78 H 145/76 H Pulse Oximetry 100 Oxygen Delivery Method 04/06/25 15:00 04/06/25 15:00 04/06/25 15:05 Temperature Pulse Rate 89 101 H Respiratory Rate 17 21 Blood Pressure 147/76 H Pulse Oximetry 100 100 Oxygen Delivery Method 04/06/25 15:05 04/06/25 15:11 04/06/25 15:11 Temperature Pulse Rate 95 H Respiratory Rate 19 Blood Pressure 153/79 H 133/70 Pulse Oximetry 100 Oxygen Delivery Method 04/06/25 15:15 04/06/25 15:15 04/06/25 15:33 Temperature Pulse Rate 93 H 96 H Respiratory Rate 17 19 Blood Pressure 130/65 Pulse Oximetry 99 98 Oxygen Delivery Method 04/06/25 15:57 04/06/25 15:57 04/06/25 16:00 Temperature Pulse Rate 87 83 Respiratory Rate 24 23 Blood Pressure 124/57 L Pulse Oximetry 100 100 Oxygen Delivery Method 04/06/25 16:01 04/06/25 16:01 04/06/25 16:05 Temperature Pulse Rate 82 89 Respiratory Rate 24 19 Blood Pressure 106/59 L Pulse Oximetry 100 99 Oxygen Delivery Method 04/06/25 16:05 04/06/25 16:10 04/06/25 16:10 Temperature Pulse Rate 85 Respiratory Rate 21 Blood Pressure 106/57 L 105/55 L Pulse Oximetry 99 Oxygen Delivery Method 04/06/25 16:15 04/06/25 16:15 04/06/25 16:21 Temperature Pulse Rate 86 Respiratory Rate 20 Blood Pressure 106/56 L 113/78 Pulse Oximetry 100 Oxygen Delivery Method 04/06/25 16:21 04/06/25 16:25 04/06/25 16:25 Temperature Pulse Rate 92 H 92 H Respiratory Rate 22 24 Blood Pressure 120/68 Pulse Oximetry 99 99 Oxygen Delivery Method 04/06/25 16:30 04/06/25 16:30 04/06/25 16:35 Temperature Pulse Rate 88 88 Respiratory Rate 22 20 Blood Pressure 114/55 L Pulse Oximetry 99 99 Oxygen Delivery Method 04/06/25 16:35 04/06/25 16:40 04/06/25 16:40 Temperature Pulse Rate 86 Respiratory Rate 19 Blood Pressure 106/59 L 121/66 Pulse Oximetry 100 Oxygen Delivery Method MDM - Seizure Lab Data 04/06/25 13:57 04/06/25 14:31 Labs: Lab Results 04/06/25 04/06/25 Range/Units 13:57 14:31 WBC 2.8 L (4.5-11.0) X10^3/uL RBC 2.97 L (4.0-5.2) X10^6/uL Hgb 9.5 L (12.0-16.0) g/dL Hct 26.8 L (36-46) % MCV 90.3 (80-100) fL MCH 31.9 (26-34) PG MCHC 35.4 (30-36) % RDW 15.0 H (11.6-14.8) % Plt Count 194 (150-400) X10^3/uL Neut % (Auto) 74.9 (50-75) % Lymph % (Auto) 13.1 L (25-40) % [place] % (Auto) 8.2 (3-14) % Eos % (Auto) 3.1 (2-4) % Baso % (Auto) 0.7 (0-2) % Neut # (Auto) 2100 (4329-4846) /uL Lymph # (Auto) 400 L (4885-1249) /uL [place] # (Auto) 200 (0-900) /uL Eos # (Auto) 100 (0-450) /uL Baso # (Auto) 0 (0-100) /uL Sodium 136 L (137-145) mmol/L Potassium 4.2 (3.4-5.1) mmol/L Chloride 102 (98-107) mmol/L Carbon Dioxide 25 (22-32) mmol/L BUN 18 H (7-17) mg/dL Creatinine 0.80 (0.52-1.04) mg/dL Estimated GFR > 60 (>60) mL/min BUN/Creatinine Ratio 22.5 H (6-22) Glucose 138 H (70-99) mg/dL Calcium 9.4 (8.4-10.2) mg/dL Magnesium 1.9 (1.6-2.3) mg/dL Total Bilirubin 0.3 (0.2-1.3) mg/dL AST 57 H (14-36) IU/L ALT 62 H (<35) IU/L Alkaline Phosphatase 162 H (38-126) U/L Troponin I < 0.012 (0.01-0.034) ng/mL NT-Pro-B Natriuret Pep 74 (<125) pg/mL Total Protein 7.6 (6.3-8.2) g/dL Albumin 4.5 (3.5-5.0) g/dL Globulin 3.1 (1.7-4.1) g/dL Albumin/Globulin Ratio 1.5 (1.0-2.8) Lipase 102 (23-300) U/L Imaging Data CT scan - head: Radiologist's Impression: [place] [address] CT Scan Report Signed Patient: Verónica Cobian I MR#: [id number] : 1965 Acct:[id number] Age/Sex: 59 / F Date of Service: 04/06/25 Loc: ED Accession Number: [id number] Procedure: CT head/brain wo con Ordering Provider: Alton Keller D.O. PROCEDURE: CT HEAD/BRAIN WO CON INDICATIONS: hx of brain ca /seizure TECHNIQUE: Noncontrast 4.5 mm thick angled axial sections acquired from the foramen magnum to the vertex, with coronal and sagittal reformats. For radiation dose reduction, the following was used: automated exposure control, adjustment of mA and/or kV according to patient size. COMPARISON: [facility], CT, CT HEAD/BRAIN WO CON, 10/16/2024, 18:42. FINDINGS: Image quality: Diagnostic. CSF spaces: Basal cisterns are patent. No extra-axial fluid collections. The ventricles are symmetric in size and shape. Brain: No intracranial bleeds or mass effect. Encephalomalacia is again seen in deep to the right craniotomy site. There is cerebral volume loss, with resultant ventricular and sulcal prominence. There are periventricular and deep white matter chronic small vessel ischemic changes. There is intracranial internal carotid artery atherosclerosis. Skull and face: Post craniotomy changes are noted in right frontal calvarium. No acute skull fracture. Sinuses: Visualized sinuses and mastoids are clear. IMPRESSION: No acute intracranial pathology. No significant changes from previous study. CTA - brain/neck: Radiologist's Impression: [place] [address] CT Scan Report Signed Patient: Verónica Cobian I MR#: [id number] : 1965 Acct:[id number] Age/Sex: 59 / F Date of Service: 04/06/25 Loc: ED Accession Number: [id number] Procedure: CT angio head and neck Ordering Provider: Alton Keller D.O. PROCEDURE: CT ANGIO HEAD AND NECK INDICATIONS: seizure TECHNIQUE: After the administration of intravenous contrast, 1 mm thick sections acquired from the aortic arch through the [place] of [place]. MIP reformats of the arterial vasculature were utilized. For radiation dose reduction, the following was used: automated exposure control, adjustment of mA and/or kV according to patient size. COMPARISON: [facility], CT, CT HEAD/BRAIN WO CON, 11/18/2023, 10:07. [facility], CT, CT HEAD/BRAIN WO CON, 10/29/2023, 11:07. [facility], CT, CT ANGIO HEAD AND NECK, 10/29/2023, 11:07. FINDINGS: Image quality: Diagnostic. Cerebral CT Angiogram: Internal carotid arteries: No acute findings. Intracranial ICA are patent with no significant stenosis. No occlusion. No aneurysm. Anterior cerebral arteries: Unremarkable. No significant stenosis. No occlusion. No aneurysm. Middle cerebral arteries: Unremarkable. No significant stenosis. No occlusion. No aneurysm. Posterior cerebral arteries: Unremarkable. No significant stenosis. No occlusion. No aneurysm. Basilar artery: Unremarkable. No significant stenosis. No occlusion. No aneurysm. Vertebral arteries: Unremarkable as visualized. Dural venous sinuses: Unremarkable given phase of enhancement. Other: Right frontal resection cavity, cystic encephalomalacia and gliosis associated with right frontal craniotomy Neck CT Angiogram: Internal carotid arteries: Unremarkable. No significant stenosis. No dissection or occlusion. Common carotid arteries: Unremarkable. No significant stenosis. No dissection or occlusion. External carotid arteries: Unremarkable. No occlusion. Vertebral arteries: Unremarkable. No significant stenosis. No dissection or occlusion. Aortic Arch and Mediastinum: Partially visualized aortic arch unremarkable without evidence of aneurysm. Origins of the great vessels unremarkable. Other: Arterial phase soft tissues of the neck and chest are unremarkable. Right upper lobe regional fibrosis probably related to treatment change IMPRESSION: Unremarkable CT angiogram head neck without large vessel occlusion, aneurysm or vascular malformation MDM Narrative Medical decision making narrative: All lab work, vital signs, nurse triage note, medication list, previous ER visits, and all imaging studies reviewed. WBC 2.8 hg 9.5 platelet 194 sodium 136 potassium 4.2 chloride 102 CO2 25 BUN 18 creatinine 0.8 glucose 138 magnesium 1.9 AST 57 ALT 62 alk-phos 162 T bili 0.3 troponin normal lipase 102. Chest x-ray peribronchial thickening and prominent lesa. Patient recently got over the flu. CT head and CT head and neck showed no acute process. Patient given fluids LR 1L bolusx1 Keppra 1000mg IV x1 and Ativan 2mg IV x 1 here. Differential diagnosis CVA hemorrhage seizure electrolyte derangement. Follow up neurologist tomorrow call office for appointment. Discharge Plan Departure Patient Disposition: Home Clinical Impression: Seizure Instructions: DI for Seizure Disorder -- Adult Activity Restrictions/Additional Instructions: Return with new or worsening symptoms. Keep hydrated. Follow up with Neurologist call office for appointment tommorow. Follow up with PCP regarding Peribronchial thickening and prominent lesa. Follow-up suggested. Prescriptions: No Action multivitamin combination no.56 PO L.acid,gas,bess,rham-B.ani-cran [up4 Probiotics Women's] PO levetiracetam [Keppra] 250 mg tablet 750 mg PO BID calcium carbonate 500 mg calcium (1,250 mg) tablet 500 mg PO DAILY omega 1-uic-cfo-fish oil 1,000 mg (120 mg-180 mg) capsule 1 cap PO DAILY lorazepam [Ativan] 0.5 mg tablet 0.5 mg PO TID PRN (Reason: anxiety) Qty: 14 0RF cholecalciferol (vitamin D3) [Vitamin D3] 25 mcg (1,000 unit) Capsule 1,000 unit DAILY Referrals: Chandler Mark, [Primary Care Provider, Family Practice] Stand Alone Forms: Patient Portal/API
[2025-04-06 15:27] LABS: Alanine Aminotransferase 62 IU/L (<35); Albumin 4.5 g/dL (3.5-5.0); Albumin Globulin Ratio 1.5 (1.0-2.8); Alkaline Phosphatase 162 U/L (38-126); Blood Urea Nitrogen 18 mg/dL (7-17); Calcium 9.4 mg/dL (8.4-10.2); Carbon Dioxide 25 mmol/L (22-32); Chloride 102 mmol/L (98-107); Estimated Glomerular Filt Rate > 60 mL/min (>60); Globulin 3.1 g/dL (1.7-4.1); Glucose 138 mg/dL (70-99); HEMOLYSIS < 15 (0-50); Lipase 102 U/L (23-300); Magnesium 1.9 mg/dL (1.6-2.3); Potassium 4.2 mmol/L (3.4-5.1); Sodium 136 mmol/L (137-145); Total Protein 7.6 g/dL (6.3-8.2)
[2025-04-06] MEDS: LACTATED RINGERS 500 ML 1000 ML IV (15:33)
[2025-04-06 15:38] LABS: NT-proBNP (BNP-Adult 18+) 74 pg/mL (<125); Troponin I < 0.012 ng/mL (0.01-0.034)
--- NOTE | 2025-04-06 15:52 | PC.NURSE ---
Seizure activity visualized by ED RN, severe tremors in left side of jaw which lasted several minutes
[2025-04-06 15:58] LABS: Add Manual Diff / Slide Review NO; Hematocrit 26.8 % (36-46); Hemoglobin 9.5 g/dL (12.0-16.0); Lymphocytes Absolute Auto 400 /uL (1100-4500); Mean Corpuscular HGB Conc 35.4 % (30-36); Mean Corpuscular Hemoglobin 31.9 PG (26-34); Mean Corpuscular Volume 90.3 fL (80-100); Platelet Count 194 X10^3/uL (150-400)
== END 2025-04-06 17:14 | disposition home or self-care (01) ==
PROVIDERS: Emergency Provider Family Medicine; PCP Family Medicine
DX: G40.909 Epilepsy, unspecified, not intractable, without status epilepticus (principal)
CPT/HCPCS: 70450; 70496; 70498; 71045; 80053; 83690; 83735; 83880; 84484; 85025; 96365; 96375; 99284; J1953; J2060; J7050; Q9967

== ENCOUNTER 2025-05-23 01:32 | Emergency (ER) | payer OTHER, SELFPAY ==
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
--- NOTE | 2025-05-23 01:37 | DI.CT.S_ITS ---
PROCEDURE: CT HEAD/BRAIN WO CON INDICATIONS: rt side Headache, hx glioblastoma status post craniotomy TECHNIQUE: Noncontrast 4.5 mm thick angled axial sections acquired from the foramen magnum to the vertex, with coronal and sagittal reformats. For radiation dose reduction, the following was used: automated exposure control, adjustment of mA and/or kV according to patient size. COMPARISON: [facility], CT, CT HEAD/BRAIN WO CON, 04/06/2025, 15:28. FINDINGS: Image quality: Diagnostic. CSF spaces: Basal cisterns are patent. No extra-axial fluid collections. Ventricles are normal in size and shape. Brain: Stable postsurgical changes in the right frontal parietal lobe. No midline shift. No intracranial mass effect or hemorrhage. Peterson-white matter interface is normal. Skull and face: Status post right craniotomy. Calvarium and visualized facial bones are intact, without suspicious lesions. Sinuses: Visualized sinuses and mastoids are clear. IMPRESSION: No acute intracranial pathology. Stable postsurgical changes in the right. Approved by: Melody Toledo M.D.,Ph.D. on 05/23/2025 at 2:15
[2025-05-23 01:39] VITALS: BP 142/88; PULSE 81; RESP 16; TEMP 36.4; O2SAT 100; BMI 18.2
--- NOTE | 2025-05-23 01:51 | PC.NURSE ---
Pt has history of Craniotomy with every 3 month follow up appointments at [facility]. Last seen and scanned on Saturday05/18/25
[2025-05-23] MEDS: SODIUM CHLORIDE 0.9% 1,000 ML 1000 ML IV (02:07)
[2025-05-23] MEDS: diphenhydrAMINE 50 MG/ML VIAL 25 MG IV (02:09)
[2025-05-23] MEDS: METOCLOPRAMIDE 10 MG/2 ML INJ IV (02:11)
[2025-05-23 02:36] LABS: Add Manual Diff / Slide Review NO; Alanine Aminotransferase 36 IU/L (<35); Albumin 4.4 g/dL (3.5-5.0); Albumin Globulin Ratio 1.6 (1.0-2.8); Alkaline Phosphatase 117 U/L (38-126); Blood Urea Nitrogen 20 mg/dL (7-17); Calcium 9.7 mg/dL (8.4-10.2); Carbon Dioxide 24 mmol/L (22-32); Chloride 108 mmol/L (98-107); Estimated Glomerular Filt Rate > 60 mL/min (>60); Globulin 2.7 g/dL (1.7-4.1); Glucose 118 mg/dL (70-99); HEMOLYSIS < 15 (0-50); Hematocrit 31.5 % (36-46); Hemoglobin 11.3 g/dL (12.0-16.0); INR 1.0 (0.9-1.3); Lymphocytes Absolute Auto 500 /uL (1100-4500); Magnesium 1.9 mg/dL (1.6-2.3); Mean Corpuscular HGB Conc 35.7 % (30-36); Mean Corpuscular Hemoglobin 32.0 PG (26-34); Mean Corpuscular Volume 89.6 fL (80-100); Platelet Count 151 X10^3/uL (150-400); Potassium 3.6 mmol/L (3.4-5.1); Prothrombin Time 11.4 SECONDS (9.4-12.5); Sodium 140 mmol/L (137-145); Total Protein 7.1 g/dL (6.3-8.2)
[2025-05-23 02:39] LABS: PTT Partial Thromboplastin Tim 31 SECONDS (25.1-36.5)
[2025-05-23 02:56] VITALS: BP 138/78; PULSE 78; RESP 18; O2SAT 98
== END 2025-05-23 02:57 | disposition home or self-care (01) ==
PROVIDERS: Emergency Provider Student in an Organized Health Care Education/Training Program; PCP Family Medicine
DX: R51.9 Headache, unspecified (principal); Z86.69 Personal history of other diseases of the nervous system and sense organs
CPT/HCPCS: 36415; 70450; 80053; 83735; 85025; 85610; 85730; 96374; 96375; 99284; J1100; J1200; J2765; J7030

== ENCOUNTER 2025-06-03 18:21 | Emergency (ER) | payer OTHER, SELFPAY ==
[2025-06-03] VITALS (51 sets, daily range): BP systolic 100–148; BP diastolic 53–74; PULSE 79–106; RESP 15–24; TEMP 37.2; O2SAT 95–100; BMI 20.5
--- NOTE | 2025-06-03 18:50 | EKG_ITS ---
[id number] [address] Test Date: 2025-06-03 Pat Name: Verónica Cobian Department: Room: Gender: Female Pediatric Oncology Nurse: ISELA : 1965 Requested By: Order Number: [id number] Reading MD: Alton Coelho MD Measurements Intervals [place] Rate: 82 P: 54 MT: 112 QRS: 31 QRSD: 88 T: 31 QT: 398 QTc: 464 Interpretive Statements Normal sinus rhythm Nonspecific ST and T wave abnormality Electronically Signed On 06-05-2025 10:16:47 PST by Alton Coelho MD
--- NOTE | 2025-06-03 19:02 | ED_ITS ---
HPI - Seizure General Chief Complaint: Seizure Stated Complaint: Seizure Time Seen by Provider: 06/03/25 18:56 Source: patient Mode of arrival: Wheelchair Limitations: no limitations History of Present Illness HPI Narrative: 59-year-old female with history of breast cancer, later brain cancer diagnosis October 2023, had presentation with seizure, then treatment at [facility] per son at bedside, has been taking Keppra medications for seizure control, unclear if she might have missed any doses, or change her regimen. Noted to have some facial tingling tonight, and then shaking seizure activity shortly after triage here. Related Data Home Medications ?Medication ?Instructions ?Recorded ?Confirmed calcium carbonate 500 mg PO DAILY 03/18/19 omega 1-tlb-igg-fish oil 1,000 mg 1 cap PO DAILY 03/1802/04/25 (120 mg-180 mg) capsule cholecalciferol (vitamin D3) 25 1,000 unit DAILY 02/1502/04/25 mcg (1,000 unit) capsule (Vitamin D3) L.acid,gas,bess,rham-B.ani-cran PO 12/10/23 02/04/25 [up4 Probiotics Women's] levetiracetam 250 mg tablet 1,000 mg PO BID 12/10/23 1 08/05/24 (Keppra) multivitamin combination no.56 PO 12/10/23 02/04/25 Previous Rx's ?Medication ?Instructions ?Recorded lorazepam 0.5 mg tablet (Ativan) 0.5 mg PO TID PRN anx iety #14 tabs 06/24/24 Allergies Allergy/AdvReac Type Severity Reaction Status Date / Time No Known Drug Allergies Allergy Verified 06/03/25 18:30 Patient History Medical History Seborrheic keratoses Epilepsy Glioblastoma determined by biopsy of brain Well adult Sebaceous cyst Surgical History Status post hysterectomy (12/31/16) Status post partial mastectomy (04/29/15) Family History Father Stroke Mother Hypertension Grandmother Cancer Social History marital status: household members: spouse Smoking Status: Never smoker alcohol intake: current substance use type: does not use Smoking Status: Never smoker Exam Narrative Exam Narrative: GENERAL: 1st seen by me shortly after triage with tonic-clonic seizure activity, and right lateral head gazing lying on gurney. HEAD: Atraumatic. EYES: Pupils equal round and reactive. Right lateral gaze and right head turning on initial presentation during seizure activity. ENT: Nose without bleeding, purulent drainage. Throat without erythema, tonsillar hypertrophy or exudate. Airway patent. NECK: Trachea midline. Non tender CARDIOVASCULAR: Regular rate and rhythm without murmurs. RESPIRATORY: Clear to auscultation. Breath sounds equal bilaterally. No wheezes, rales, or rhonchi. GASTROINTESTINAL: Abdomen soft, nondistended, no wincing on palpation EXTREMITIES: No edema or joint tenderness. BACK: Nontender without deformity or crepitance. No flank tenderness. NEURO: Seen by me initially with seizure activity shortly after triage, aborted with IV medications, scallops currently had improvement in mental status, looking around, nonfocal neurological exam. SKIN: No rash or erythema of visible areas Initial Vital Signs Initial Vital Signs: Vital Signs Temperature 99.0 F 06/03/25 18:27 Pulse Rate 83 06/03/25 18:27 Respiratory Rate 20 06/03/25 18:27 Blood Pressure 148/74 H 06/03/25 18:27 Pulse Oximetry 96 06/03/25 18:27 Oxygen Delivery Method Room Air 06/03/25 18:27 Course Orders Ordered: Discontinued Medications Dexamethasone (Dexamethasone 10 Mg/Ml Vial) 10 mg IV NOW ONE Stop: 06/03/25 20:46 Last Admin: 06/03/25 21:17 Dose: 10 mg Documented By: SB Levetiracetam 1,000 mg/ Sodium (Chloride) 110 mls @ 440 mls/hr IV NOW ONE Stop: 06/03/25 18:59 Last Infusion: 06/03/25 19:19 Dose: Infused Documented By: Admin: 06/03/25 19:01 Dose: 440 mls/hr Documented By: RB Lorazepam (Lorazepam 2 Mg/Ml Inj) 1 mg IV NOW ONE Stop: 06/03/25 18:57 Last Admin: 06/03/25 18:52 Dose: 1 mg Documented By: RB Lorazepam (Lorazepam 2 Mg/Ml Inj) 1 mg IV NOW ONE Stop: 06/03/25 18:56 Last Admin: 06/03/25 18:56 Dose: 1 mg Documented By: RB Lorazepam (Lorazepam 2 Mg/Ml Inj) 2 mg IV NOW ONE Stop: 06/03/25 19:01 Last Admin: 06/03/25 19:01 Dose: 2 mg Documented By: RB Ondansetron HCl (Ondansetron 4 Mg/2 Ml Inj) 4 mg IV NOW PRN PRN Reason: Nausea And Vomiting Ondansetron HCl (Ondansetron 4 Mg Odt) 4 mg PO NOW PRN PRN Reason: Nausea And Vomiting Vital Signs Vital signs: Vital Signs - 8 hr 06/03/25 21:00 06/03/25 21:00 06/03/25 21:05 Pulse Rate 97 H Respiratory Rate 20 Blood Pressure 123/64 122/61 Pulse Oximetry 98 Oxygen Delivery Method 06/03/25 21:05 06/03/25 21:10 06/03/25 21:10 Pulse Rate 85 90 Respiratory Rate 23 18 Blood Pressure 109/59 L Pulse Oximetry 96 95 Oxygen Delivery Method 06/03/25 21:15 06/03/25 21:15 06/03/25 21:20 Pulse Rate 100 H Respiratory Rate 21 Blood Pressure 106/60 106/62 Pulse Oximetry 96 Oxygen Delivery Method 06/03/25 21:20 06/03/25 21:25 06/03/25 21:25 Pulse Rate 92 H 89 Respiratory Rate 20 20 Blood Pressure 115/55 L Pulse Oximetry 97 98 Oxygen Delivery Method 06/03/25 21:30 06/03/25 21:30 06/03/25 21:35 Pulse Rate 84 Respiratory Rate 18 Blood Pressure 107/57 L 100/56 L Pulse Oximetry 98 Oxygen Delivery Method 06/03/25 21:35 06/03/25 21:40 06/03/25 21:40 Pulse Rate 86 85 Respiratory Rate 19 18 Blood Pressure 113/63 Pulse Oximetry 96 97 Oxygen Delivery Method 06/03/25 21:45 06/03/25 21:45 06/03/25 21:50 Pulse Rate 86 Respiratory Rate 19 Blood Pressure 109/58 L 123/62 Pulse Oximetry 97 Oxygen Delivery Method 06/03/25 21:50 06/03/25 21:55 06/03/25 21:55 Pulse Rate 85 91 H Respiratory Rate 16 20 Blood Pressure 132/64 Pulse Oximetry 97 97 Oxygen Delivery Method Room Air 06/03/25 22:00 06/03/25 22:00 06/03/25 22:05 Pulse Rate 84 Respiratory Rate 19 Blood Pressure 119/60 108/55 L Pulse Oximetry 99 Oxygen Delivery Method 06/03/25 22:05 06/03/25 22:10 06/03/25 22:10 Pulse Rate 97 H 89 Respiratory Rate 21 17 Blood Pressure 118/66 Pulse Oximetry 98 98 Oxygen Delivery Method 06/03/25 22:15 06/03/25 22:15 06/03/25 22:20 Pulse Rate 90 82 Respiratory Rate 18 19 Blood Pressure 117/68 Pulse Oximetry 98 97 Oxygen Delivery Method 06/03/25 22:20 06/03/25 22:25 06/03/25 22:25 Pulse Rate 86 Respiratory Rate 19 Blood Pressure 106/63 117/63 Pulse Oximetry 98 Oxygen Delivery Method 06/03/25 22:30 06/03/25 22:30 06/03/25 22:35 Pulse Rate 91 H Respiratory Rate 20 Blood Pressure 116/62 114/61 Pulse Oximetry 98 Oxygen Delivery Method 06/03/25 22:35 06/03/25 22:40 06/03/25 22:40 Pulse Rate 84 89 Respiratory Rate 18 20 Blood Pressure 119/65 Pulse Oximetry 98 98 Oxygen Delivery Method 06/03/25 22:45 06/03/25 22:45 06/03/25 22:50 Pulse Rate 95 H Respiratory Rate 20 Blood Pressure 118/63 133/67 Pulse Oximetry 97 Oxygen Delivery Method 06/03/25 22:50 06/03/25 22:55 06/03/25 22:55 Pulse Rate 89 91 H Respiratory Rate 15 20 Blood Pressure 127/68 Pulse Oximetry 98 98 Oxygen Delivery Method 06/03/25 23:00 06/03/25 23:00 06/03/25 23:05 Pulse Rate 81 Respiratory Rate 20 Blood Pressure 124/66 125/60 Pulse Oximetry 98 Oxygen Delivery Method 06/03/25 23:05 06/03/25 23:10 06/03/25 23:10 Pulse Rate 85 84 Respiratory Rate 17 19 Blood Pressure 122/66 Pulse Oximetry 98 97 Oxygen Delivery Method 06/03/25 23:15 06/03/25 23:15 06/03/25 23:20 Pulse Rate 81 89 Respiratory Rate 19 19 Blood Pressure 119/63 Pulse Oximetry 97 97 Oxygen Delivery Method 06/03/25 23:20 06/03/25 23:25 06/03/25 23:25 Pulse Rate 81 Respiratory Rate 17 Blood Pressure 115/62 117/58 L Pulse Oximetry 96 Oxygen Delivery Method 06/03/25 23:30 06/03/25 23:30 06/03/25 23:35 Pulse Rate 79 80 Respiratory Rate 19 19 Blood Pressure 107/58 L Pulse Oximetry 96 95 Oxygen Delivery Method 06/03/25 23:35 06/03/25 23:40 06/03/25 23:40 Pulse Rate 81 Respiratory Rate 20 Blood Pressure 113/56 L 108/53 L Pulse Oximetry 97 Oxygen Delivery Method 06/04/25 00:00 06/04/25 00:00 06/04/25 00:30 Pulse Rate 82 Respiratory Rate 17 Blood Pressure 107/66 114/70 Pulse Oximetry 96 Oxygen Delivery Method 06/04/25 00:30 06/04/25 00:46 06/04/25 00:46 Pulse Rate 89 94 H Respiratory Rate 17 19 Blood Pressure 124/65 Pulse Oximetry 99 99 Oxygen Delivery Method MDM - Seizure Lab Data 06/03/25 18:46 06/03/25 18:46 Labs: Lab Results 06/03/25 06/03/25 Range/Units 18:46 18:58 WBC 3.5 L (4.5-11.0) X10^3/uL RBC 3.81 L (4.0-5.2) X10^6/uL Hgb 12.1 (12.0-16.0) g/dL Hct 34.0 L (36-46) % MCV 89.3 (80-100) fL MCH 31.7 (26-34) PG MCHC 35.5 (30-36) % RDW 13.7 (11.6-14.8) % Plt Count 187 (150-400) X10^3/uL Neut % (Auto) 63.4 (50-75) % Lymph % (Auto) 24.0 L (25-40) % [place] % (Auto) 9.9 (3-14) % Eos % (Auto) 1.9 L (2-4) % Baso % (Auto) 0.8 (0-2) % Neut # (Auto) 2200 (6612-0917) /uL Lymph # (Auto) 800 L (9995-7123) /uL [place] # (Auto) 300 (0-900) /uL Eos # (Auto) 100 (0-450) /uL Baso # (Auto) 0 (0-100) /uL Sodium 138 (137-145) mmol/L Potassium 3.8 (3.4-5.1) mmol/L Chloride 105 (98-107) mmol/L Carbon Dioxide 22 (22-32) mmol/L BUN 19 H (7-17) mg/dL Creatinine 0.80 (0.52-1.04) mg/dL Estimated GFR > 60 (>60) mL/min BUN/Creatinine Ratio 23.8 H (6-22) Glucose 115 H (70-99) mg/dL POC Whole Bld Glucose 112 H (70-99) mg/dL Calcium 9.2 (8.4-10.2) mg/dL Total Bilirubin 0.4 (0.2-1.3) mg/dL AST 43 H (14-36) IU/L ALT 47 H (<35) IU/L Alkaline Phosphatase 142 H (38-126) U/L Total Protein 7.5 (6.3-8.2) g/dL Albumin 4.6 (3.5-5.0) g/dL Globulin 2.9 (1.7-4.1) g/dL Albumin/Globulin Ratio 1.6 (1.0-2.8) Lipase 84 (23-300) U/L Imaging Data CT scan - head: Radiologist's Impression: [address] [address] [address] Scan Report Signed Patient: Verónica Cobian I MR#: [id number] : 1965 Acct:[id number] Age/Sex: 59 / F Date of Service: 06/03/25 Loc: ED Accession Number: [id number] Procedure: CT head/brain wo/w con Ordering Provider: Demetrio Garcia MD PROCEDURE: CT HEAD/BRAIN WO/W CON INDICATIONS: sz, hx brain cancer off Rx TECHNIQUE: 4.5 mm thick angled axial sections acquired from the foramen magnum to the vertex before and after the administration of intravenous contrast, with coronal and sagittal reformats. For radiation dose reduction, the following was used: automated exposure control, adjustment of mA and/or kV according to patient size. COMPARISON: [facility], CT, CT HEAD/BRAIN WO CON, 05/23/2025, 1:45. FINDINGS: Image quality: Excellent. CSF Spaces: Basal cisterns are patent. No extra-axial fluid collections. Ventricles are normal in size and shape. Brain: Right-sided craniotomy and resection. There is a new region of bilobed enhancement in the right frontal lobe measuring approximately 1.7 x 1.2 cm, with associated vasogenic edema. This is a new from prior. Skull and face: Calvarium and visualized facial bones appear intact, without suspicious lesions. Sinuses: Visualized sinuses and mastoids are clear. 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 This measures approximately 1.2 x 1.7 cm. No midline shift or herniation. Prior right frontal craniotomy. Dictated by: Adrian Ponce M.D. on 06/03/2025 at 20:24 Approved by: Adrian Ponce M.D. on 06/03/2025 at 20:28 ECG Data Attestation: I personally reviewed and interpreted this ECG as follows: Interpretation: 1850, Normal sinus rhythm with rate of 82, no obvious ST segment elevation or depression changes. Some movement artifact noted. MN 112, QRS 88, QTC 464. MDM Narrative Medical decision making narrative: 59-year-old female with history of brain tumor on previous chemotherapy that has been stopped, seizure disorder on Keppra, unclear if any missed doses but might have change her regimen in some way, unclear per initial available son historian at bedside, not yet here. Has facial twitching, then had tonic-clonic like seizure activity. Was lucid on triage, then had witnessed seizure tonic- clonic activity, with right lateral head gaze activity, suction, controlled airway well. Glucose not decreased. IV Ativan 2 mg x 2 doses, IV Keppra 100 mg. No further seizure activity. CT head noncontrast. 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 This measures approximately 1.2 x 1.7 cm. No midline shift or herniation.Prior right frontal craniotomy. See radiology report. IV Decadron. Patient/family given copy of CT report, showing apparently new appearing small brain lesions with vasogenic edema. IV steroid initiated. We will reach out to [facility] oncology. arrived later, was initially agreeable to consultation with [facility] oncology, call back report their oncologists to not take phone call consultations. Advised consulting with [facility] Neurology, initially seemed okay with this, but then apparently did not want to stay for any further attempts at communicating with [facility]. He stated that they would contact their Neurology/oncology team at [facility] through their portal for further recommendations. They elected not to stay any further. Discharged home. Discharge Plan Departure Patient Disposition: Home Clinical Impression: Seizure, History of brain cancer Activity Restrictions/Additional Instructions: History of brain cancer and seizures, taking Keppra 1000 mg by mouth twice daily for seizure control. Last round of treatment at [facility] [place] completed, MRI brain studies being done every 3 months. Seizure activity today noted, IV Keppra was given. CT head examination today was concerning for possible new lesions compared to previous comparison 05/23/2025, with some vasogenic edema associated (localized swelling). Prescriptions: No Action multivitamin combination no.56 PO L.acid,gas,bess,rham-B.ani-cran [up4 Probiotics Women's] PO levetiracetam [Keppra] 250 mg tablet 1,000 mg PO BID calcium carbonate 500 mg calcium (1,250 mg) tablet 500 mg PO DAILY omega 1-eyi-zpb-fish oil 1,000 mg (120 mg-180 mg) capsule 1 cap PO DAILY lorazepam [Ativan] 0.5 mg tablet 0.5 mg PO TID PRN (Reason: anxiety) Qty: 14 0RF cholecalciferol (vitamin D3) [Vitamin D3] 25 mcg (1,000 unit) Capsule 1,000 unit DAILY Referrals: Chandler Mark, DO [Primary Care Provider, Family Practice] Stand Alone Forms: Patient Portal/API, Against Med. Advice (Urdu)
[2025-06-03 19:04] LABS: Add Manual Diff / Slide Review NO; Hematocrit 34.0 % (36-46); Hemoglobin 12.1 g/dL (12.0-16.0); Lymphocytes Absolute Auto 800 /uL (1100-4500); Mean Corpuscular HGB Conc 35.5 % (30-36); Mean Corpuscular Hemoglobin 31.7 PG (26-34); Mean Corpuscular Volume 89.3 fL (80-100); Platelet Count 187 X10^3/uL (150-400)
--- NOTE | 2025-06-03 19:06 | PC.NURSE ---
Patient primary nurse and nurse trainee were at patient bedside with primary RN called for Provider due to patient having a seizure. Provider called out verbal order of 1 of lorazepam IV. Charge nurse override order and joined provider and primary RN and trainee at bedside. Provider gave additional 1mg lorazepam order and administered by charge nurse from vial already in hand. This RN witnessed administrations and was recording medications and scanned them. Provider gave verbal order for 1 gram Keppra IV. This RN placed verbal order and an additional RN prepared that infusion. Patient was continuing seizure activity. Respiratory therapy called and arrives a patient bedside. Patient administered oxygen via non rebreather mask and patient mouth is suctioned. Provider gave verbal order for an additional 2mg of lorazepam due to continued seizure activity. This RN entered that order and pulled additional vial and tiarra up the medication and charge nurse administered confirmed dose. Primary RN and trainee remain at patient bedside.
[2025-06-03 19:07] LABS: Alanine Aminotransferase 47 IU/L (<35); Albumin 4.6 g/dL (3.5-5.0); Albumin Globulin Ratio 1.6 (1.0-2.8); Alkaline Phosphatase 142 U/L (38-126); Blood Urea Nitrogen 19 mg/dL (7-17); Calcium 9.2 mg/dL (8.4-10.2); Carbon Dioxide 22 mmol/L (22-32); Chloride 105 mmol/L (98-107); Estimated Glomerular Filt Rate > 60 mL/min (>60); Globulin 2.9 g/dL (1.7-4.1); Glucose 115 mg/dL (70-99); HEMOLYSIS < 15 (0-50); Lipase 84 U/L (23-300); Potassium 3.8 mmol/L (3.4-5.1); Sodium 138 mmol/L (137-145); Total Protein 7.5 g/dL (6.3-8.2)
--- NOTE | 2025-06-03 19:09 | PC.NURSE ---
This RN was with patient completing assessment with patient and placing patient on monitor when patient had seizure at 1855.
[2025-06-04] VITALS: BP 107/66; PULSE 82; RESP 17; O2SAT 96
[2025-06-04 00:30] VITALS: BP 114/70; PULSE 89; RESP 17; O2SAT 99
[2025-06-04 00:46] VITALS: BP 124/65; PULSE 94; RESP 19; O2SAT 99
--- NOTE | 2025-06-04 01:49 | PC.NURSE ---
Followed up with Marizol Yeboah at 0140. Thania @[facility] stated the coordinator working on this neuro consult got called in for an emergency and will follow up after.
--- NOTE | 2025-06-04 02:06 | PC.NURSE ---
Pt chose not to wait for neuro consult and leave AMA with spouse and son. Dr Garcia notified. They plan to follow up with team in the am. Know they may return at any time. Pt A&O x 3, ambulatory with stand-by assist, tolerating PO fluids.
== END 2025-06-04 02:11 | disposition home or self-care (01) ==
PROVIDERS: Emergency Provider Emergency Medicine; PCP Family Medicine
DX: G40.89 Other seizures (principal); Z85.841 Personal history of malignant neoplasm of brain
CPT/HCPCS: 36415; 70470; 80053; 82962; 83690; 85025; 93005; 96365; 96375; 99284; J1100; J1953; J2060; J7050; Q9967